=== PATIENT | female | born 1955 | race Caucasian/White ===

== ENCOUNTER → 2017-04-13 12:39 | Outpatient (REF) | payer MEDICARE, BC, SELFPAY ==
[2017-04-13 12:54] LABS: Basophils # 0.1 K/mm3 (0-0.2); Basophils % 0.3 % (0.1-2.0); Eosinophils % 0.2 % (0.1-12.0); Lymphocytes # 0.8 K/mm3 (0.7-4.5); Lymphocytes % 6.1 K/mm3 (10-50); Mean Corpuscular Hemoglobin 21.8 pg (27.0-31.2); Mean Corpuscular Volume 78.1 fl (81-99); Mean Platelet Volume 7.1 fl (7.4-10.4); Monocytes # 0.7 K/mm3 (0.1-1.0); Monocytes % 5.3 % (1.7-9.3); Neutrophils % 88.1 % (37.0-80.0); Platelet Count 349 K/mm3 (142-424); Red Blood Count 4.08 M/mm3 (4.20-5.40); Red Cell Distribution Width 15.5 % (11.5-17.5); White Blood Count 13.6 K/mm3 (4.8-10.8)
[2017-04-13 13:00] LABS: Anion Gap 5.2 mEq/L (5-15); Blood Urea Nitrogen 16 mg/dL (7-18); Carbon Dioxide 39 mmol/L (21.0-32.0); Chloride 98 mmol/L (98-107); Creatinine,Serum 0.74 mg/dL (0.55-1.02); Estimated Glomerular Filt Rate 80 ml/min (>60); GFR (African American) 96 ML/MIN (>60); Glucose 145 mg/dL (74-106); Potassium 4.2 mmoL/L (3.5-5.1); Sodium 138 mmol/L (136-145)
[2017-04-13 13:04] LABS: Hematocrit 31.9 % (37.0-47.0); MANUAL DIFFERENTIAL MANUAL DIFFERENTIAL (MANUAL DIFF)
[2017-04-13 13:30] LABS: Lymphocytes % 8 % (10-50); Monocytes % 4 % (2-9); Neutrophils % 88 % (42-76); Platelet Estimate Normal; Total Cells Counted 100
[2017-04-13 13:31] LABS: Anisocytosis 2+; Hypochromasia 3+; Microcytosis 2+
== END ==
LOC: LAB 12:39
PROVIDERS: Visit Provider Internal Medicine
DX: D53.9 Nutritional anemia, unspecified (principal)
CPT/HCPCS: 80048; 85007; 85025

== ENCOUNTER 2017-04-13 19:53 | Inpatient (IN) | payer OTHER, MEDICARE, SELFPAY ==
[2017-04-13 19:56] VITALS: BP 138/88; PULSE 121; RESP 26; TEMP 36.8; O2SAT 77; BMI 27.3
--- NOTE | 2017-04-13 20:21 | XR_ITS ---
XR chest portable HISTORY: ITS.REASON: respiratory distress ORDERING PHYSICIAN: Jamal Harden MD PATIENT AGE: 62 years COMPARISON: 05/20/2015 FINDINGS: The cardiomediastinal silhouette and pulmonary vascularity are within normal limits. There is COPD with coarsening of bronchovascular markings which is somewhat more prominent when compared to the previous exam and may be related to superimposed bronchitis/bronchiolitis. Consider upright PA and lateral chest for further evaluation. The degree of inspiration is less on today's exam compared to the previous study. There is no right seventh rib fracture. Also suspected old left humeral neck fracture. IMPRESSION: COPD with coarsening of bronchovascular markings more so than when compared to the previous exam suggesting bronchitis/bronchiolitis
[2017-04-13 20:57] LABS: Basophils % 0.3 % (0.1-2.0); Eosinophils # 0.1 K/mm3 (0.0-0.4); Eosinophils % 0.4 % (0.1-12.0); Hematocrit 31.6 % (37.0-47.0); Hemoglobin 8.8 g/dL (12.2-16.2); Lymphocytes # 0.8 K/mm3 (0.7-4.5); Lymphocytes % 6.2 K/mm3 (10-50); Mean Corpuscular HGB Conc 27.7 g/dL (31.8-35.4); Mean Corpuscular Hemoglobin 21.8 pg (27.0-31.2); Mean Corpuscular Volume 78.4 fl (81-99); Mean Platelet Volume 7.5 fl (7.4-10.4); Monocytes # 0.6 K/mm3 (0.1-1.0); Monocytes % 5.1 % (1.7-9.3); Neutrophils # 11.1 K/mm3 (1.8-7.8); Platelet Count 341 K/mm3 (142-424); Red Blood Count 4.02 M/mm3 (4.20-5.40); Red Cell Distribution Width 15.7 % (11.5-17.5); White Blood Count 12.6 K/mm3 (4.8-10.8)
--- NOTE | 2017-04-13 20:59 | HMH.EDSOB ---
ED Disposition Clinical Impression: Acute exacerbation of chronic obstructive airways disease Anemia Qualifiers: Anemia type: unspecified type Qualified Code(s): D64.9 - Anemia, unspecified Disposition: Admitted As Inpatient Condition on Discharge: Good - Critical Care Critical Care Time: No Attestation: On 04/13/17, the high probability of a clinically significant, sudden or life threatening deterioration of the following system(s) required my full and direct attention, intervention and personal management. The time I documented below is in addition to time spent performing reported procedures but includes the following listed in this critical care notation. Medical Decision Making - Medical Records Medical records reviewed: Yes: I reviewed the patient's medical records. Vital Signs: 04/13/17 19:56 04/13/17 21:23 Temperature 98.3 F 100.4 F H Temperature Source Oral Rectal Pulse Rate [Right Radial] 121 H 126 H Respiratory Rate 26 H 24 Blood Pressure [Right Arm] 138/88 143/93 Blood Pressure Mean [Right Arm] 104 109 Blood Pressure Source [Right Arm] Automatic Cuff Automatic Cuff Blood Pressure Position [Right Arm] Sitting Sitting 02 Sat by Pulse Oximetry 77 L 90 L Oxygen Delivery Method Room Air Nasal Cannula Oxygen Flow Rate (LPM) 4 - Lab Data Lab results reviewed: Yes: I reviewed the patient's lab results. Lab Results 04/13/17 20:40: WBC 12.6 H, RBC 4.02 L, Hgb 8.8 L, Hct 31.6 L, MCV 78.4 L, MCH 21.8 L, MCHC 27.7 L, RDW 15.7, Plt Count 341, MPV 7.5, Neut % (Auto) 88.0 H, Lymph % (Auto) 6.2 L, [place] % (Auto) 5.1, Eos % (Auto) 0.4, Baso % (Auto) 0.3, Neut # (Auto) 11.1 H, Lymph # (Auto) 0.8, [place] # (Auto) 0.6, Eos # (Auto) 0.1, Baso # (Auto) 0.0 04/13/17 20:40: Lactic Acid 0.8 04/13/17 20:40: B-Natriuretic Peptide 945 H 04/13/17 20:40: Sodium 139, Potassium 4.3, Chloride 99, Carbon Dioxide 39 H, Anion Gap 5.3, BUN 17, Creatinine 0.61, Estimated Creat Clear 58, Estimated GFR 99, Est GFR ( Amer) 120 D, Glucose 128 H, Calcium 8.7, Total Bilirubin 0.3, AST 50 H, ALT 22, Alkaline Phosphatase 150 H, Total Protein 7.3, Albumin 3.0 L, Globulin 4.3 H, Albumin/Globulin Ratio 0.7 L 04/13/17 20:40: Troponin I < 0.02 04/13/17 21:03: Urine Color Yellow, Urine Appearance Clear, Urine pH 6.0, Ur Specific [place] 1.025, Urine Protein 1+, Urine Glucose (UA) Negative, Urine Ketones Negative, Urine Blood 1+, Urine Nitrate Negative, Urine Bilirubin Negative, Urine Urobilinogen 0.2, Ur Leukocyte Esterase Trace A, Urine RBC 5-10, Urine WBC 5-10, Ur Squamous Epith Cells 3-5, Ur Transition Epith Cell Occ, Urine Bacteria 2+, Hyaline Casts 10-20 Result diagrams: 04/13/17 20:40 04/13/17 20:40 Orders (Tests/Meds): ORDERS Category Date Time Status Blood Culture Stat Micro 04/13/17 21:09 Ordered Urine Culture Stat Micro 04/13/17 21:03 Received ABG [Arterial Blood Gas] Stat RT 04/13/17 21:11 Ordered EKG Request [ECG Request by /She] Stat Y 04/13/17 21:02 Ordered - Radiology Data #1 Image(s): Chest Image Reviewed: Yes I reviewed the patient's radiology image Preliminary Findings: Abnormal (possible inflitrate ) - ECG Data Tracing #1 I reviewed this ECG and interpreted as documented below: Arrhythmias present: sinus tach Ischemic changes: non-specific ST-T wave changes - Physician Consults Physician Consulted: ishmael Reason -: Admission - Zoran Inquiry Pt receiving controlled substance: No Resp/SOB HPI - General Chief Complaint: Shortness of Breath/Dyspnea Stated Complaint: hypoxia Time Seen by Provider: 04/13/17 20:59 Mode of Arrival: EMS Source of Information: Patient, EMS, Medical Record Limitations: No Limitations Description of Symptoms (Recalled from ER Triage Doc. by RN): possible infection, pt states she wants to be a full code - History of Present Illness pt with change in mental status with more sob with low sat with no fever or prod cough Complaint: shortness of
--- NOTE | 2017-04-13 21:02 | ED_ITS ---
ED Disposition Clinical Impression: Acute exacerbation of chronic obstructive airways disease Anemia Qualifiers: Anemia type: unspecified type Qualified Code(s): D64.9 - Anemia, unspecified Disposition: Admitted As Inpatient Condition on Discharge: Good - Critical Care Critical Care Time: No Attestation: On 04/13/17, the high probability of a clinically significant, sudden or life threatening deterioration of the following system(s) required my full and direct attention, intervention and personal management. The time I documented below is in addition to time spent performing reported procedures but includes the following listed in this critical care notation. Medical Decision Making - Medical Records Medical records reviewed: Yes: I reviewed the patient's medical records. Vital Signs: 04/13/17 19:56 04/13/17 21:23 Temperature 98.3 F 100.4 F H Temperature Source Oral Rectal Pulse Rate [Right Radial] 121 H 126 H Respiratory Rate 26 H 24 Blood Pressure [Right Arm] 138/88 143/93 Blood Pressure Mean [Right Arm] 104 109 Blood Pressure Source [Right Arm] Automatic Cuff Automatic Cuff Blood Pressure Position [Right Arm] Sitting Sitting 02 Sat by Pulse Oximetry 77 L 90 L Oxygen Delivery Method Room Air Nasal Cannula Oxygen Flow Rate (LPM) 4 - Lab Data Lab results reviewed: Yes: I reviewed the patient's lab results. Lab Results 04/13/17 20:40: WBC 12.6 H, RBC 4.02 L, Hgb 8.8 L, Hct 31.6 L, MCV 78.4 L, MCH 21.8 L, MCHC 27.7 L, RDW 15.7, Plt Count 341, MPV 7.5, Neut % (Auto) 88.0 H, Lymph % (Auto) 6.2 L, [place] % (Auto) 5.1, Eos % (Auto) 0.4, Baso % (Auto) 0.3, Neut # (Auto) 11.1 H, Lymph # (Auto) 0.8, [place] # (Auto) 0.6, Eos # (Auto) 0.1, Baso # (Auto) 0.0 04/13/17 20:40: Lactic Acid 0.8 04/13/17 20:40: B-Natriuretic Peptide 945 H 04/13/17 20:40: Sodium 139, Potassium 4.3, Chloride 99, Carbon Dioxide 39 H, Anion Gap 5.3, BUN 17, Creatinine 0.61, Estimated Creat Clear 58, Estimated GFR 99, Est GFR ( Amer) 120 D, Glucose 128 H, Calcium 8.7, Total Bilirubin 0.3, AST 50 H, ALT 22, Alkaline Phosphatase 150 H, Total Protein 7.3, Albumin 3.0 L, Globulin 4.3 H, Albumin/Globulin Ratio 0.7 L 04/13/17 20:40: Troponin I < 0.02 04/13/17 21:03: Urine Color Yellow, Urine Appearance Clear, Urine pH 6.0, Ur Specific [place] 1.025, Urine Protein 1+, Urine Glucose (UA) Negative, Urine Ketones Negative, Urine Blood 1+, Urine Nitrate Negative, Urine Bilirubin Negative, Urine Urobilinogen 0.2, Ur Leukocyte Esterase Trace A, Urine RBC 5-10 , Urine WBC 5-10, Ur Squamous Epith Cells 3-5, Ur Transition Epith Cell Occ, Urine Bacteria 2+, Hyaline Casts 10-20 Result diagrams: 04/13/17 20:40 04/13/17 20:40 Orders (Tests/Meds): ORDERS Category Date Time Status Blood Culture Stat Micro 04/13/17 21:09 Ordered Urine Culture Stat Micro 04/13/17 21:03 Received ABG [Arterial Blood Gas] Stat RT 04/13/17 21:11 Ordered EKG Request [ECG Request by /She] Stat Y 04/13/17 21:02 Ordered - Radiology Data #1 Image(s): Chest Image Reviewed: Yes I reviewed the patient's radiology image Preliminary Findings: Abnormal (possible inflitrate ) - ECG Data Tracing #1 I reviewed this ECG and interpreted as documented below: Arrhythmias present: sinus tach Ischemic changes: non-specific ST-T wave changes - Physician Consults Physician Consulted: ishmael Reason -: Admission - Zoran Inquiry
[2017-04-13 21:08] LABS: Alanine Aminotransferase 22 U/L (12-78); Albumin/Globulin Ratio 0.7 (1.1-1.8); Alkaline Phosphatase 150 U/L (46-116); Anion Gap 5.3 mEq/L (5-15); Aspartate Amino Transferase 50 U/L (15-37); Bilirubin,Total 0.3 mg/dL (0.2-1.0); Blood Urea Nitrogen 17 mg/dL (7-18); Calcium 8.7 mg/dL (8.5-10.1); Carbon Dioxide 39 mmol/L (21.0-32.0); Chloride 99 mmol/L (98-107); Creatinine Clearance Estimated 58 mL/min (0-300); Creatinine,Serum 0.61 mg/dL (0.55-1.02); Estimated Glomerular Filt Rate 99 ml/min (>60); GFR (African American) 120 ML/MIN (>60); Globulin 4.3 gm/dl (1.3-3.2); Glucose 128 mg/dL (74-106); Potassium 4.3 mmoL/L (3.5-5.1); Sodium 139 mmol/L (136-145); Total Protein,Serum 7.3 gm/dL (6.4-8.2)
[2017-04-13 21:11] LABS: Lactic Acid 0.8 mmol/L (0.4-2.0)
[2017-04-13 21:22] LABS: Microscopic, Urine URINE MICROSCOPIC (MICROSCOPIC)
[2017-04-13 21:23] VITALS: BP 143/93; PULSE 126; RESP 24; TEMP 38; O2SAT 90
[2017-04-13 21:37] LABS: Appearance,Urine Clear (Clear); Color,Urine Yellow (Yellow); Specific Gravity, Urine 1.025 (1.005-1.030)
[2017-04-13 21:38] LABS: Bilirubin,Urine Negative (Negative); Blood, Urine 1+ (Negative); Glucose,Urine (UA) Negative (Negative); Ketones,Urine Negative (Negative); Leukocyte Esterase,Urine Trace (Negative); Nitrate,Urine Negative (Negative); Protein,Urine 1+ (Negative); Urobilinogen,Urine 0.2 EU/dl (0.2)
[2017-04-13 21:42] LABS: Bacteria,Urine 2+ /lpf; Transitional Epi Cells,Urine OCC #/lpf (0-3)
[2017-04-13 22:03] LABS: Troponin I < 0.02 ng/ml (0.00-0.06)
--- NOTE | 2017-04-13 23:04 | PC.NURSE ---
DR MURPHY DISCUSSING CASE WITH DR RILEY
--- NOTE | 2017-04-13 23:10 | PC.NURSE ---
DR MURPHY SPOKE WITH DR RILEY FOR ADMISSION.
[2017-04-13 23:22] VITALS: BP 151/68; PULSE 107; RESP 20; O2SAT 98
[2017-04-13 23:28] VITALS: BP 151/68; PULSE 111; RESP 20; TEMP 37.3
[2017-04-13 23:59] VITALS: O2SAT 90; BMI 23.8
[2017-04-14] VITALS (11 sets, daily range): BP systolic 123–156; BP diastolic 69–94; PULSE 87–125; RESP 22–24; TEMP 36.4–36.8; O2SAT 88–96; BMI 20.3; BMI 22.9
--- NOTE | 2017-04-14 03:44 | PC.NURSE ---
SINCE ADMISSION PT HAS C/O SOA. NOTIFIED OF PT SOA AND ORDER FOR DUO NEBS Q6H WAS OBTAIN, AFTER FIRST TREATMENT PT STATED, THAT MADE ME FEEL BETTER. FAINT WHEEZE NOTED TO RML DURING LUNG AUSCULTATION. O2 SATS REMAIN IN LOW 90S ON 4L NC. BS ACTIVE IN ALL 4 QAUDS. VSS. A&OX3. NO DISTRESS NOTED. WILL CONTINUE TO MONITOR.
--- NOTE | 2017-04-14 06:53 | PC.NURSE ---
NOTIFIED OF PT REQUESTING BREATHING TREATMENTS R/T INCREASE SOB (SEE NOTIFY PROVIDER)
[2017-04-14 07:08] LABS: Basophils % 0.3 % (0.1-2.0); Eosinophils % 0.2 % (0.1-12.0); Hematocrit 33.3 % (37.0-47.0); Hemoglobin 9.2 g/dL (12.2-16.2); Lymphocytes # 0.5 K/mm3 (0.7-4.5); Lymphocytes % 4.3 K/mm3 (10-50); Mean Corpuscular HGB Conc 27.7 g/dL (31.8-35.4); Mean Corpuscular Hemoglobin 21.9 pg (27.0-31.2); Mean Platelet Volume 7.5 fl (7.4-10.4); Monocytes # 0.1 K/mm3 (0.1-1.0); Monocytes % 0.8 % (1.7-9.3); Neutrophils # 10.9 K/mm3 (1.8-7.8); Neutrophils % 94.4 % (37.0-80.0); Platelet Count 339 K/mm3 (142-424); Red Blood Count 4.21 M/mm3 (4.20-5.40); Red Cell Distribution Width 15.6 % (11.5-17.5); White Blood Count 11.5 K/mm3 (4.8-10.8)
[2017-04-14 07:14] LABS: MANUAL DIFFERENTIAL MANUAL DIFFERENTIAL (MANUAL DIFF)
[2017-04-14 07:17] LABS: Anion Gap 5.8 mEq/L (5-15); Blood Urea Nitrogen 12 mg/dL (7-18); Chloride 99 mmol/L (98-107); Creatinine Clearance Estimated 53 mL/min (0-300); Creatinine,Serum 0.49 mg/dL (0.55-1.02); Estimated Glomerular Filt Rate 128 ml/min (>60); GFR (African American) 155 ML/MIN (>60); Glucose 150 mg/dL (74-106); Potassium 4.8 mmoL/L (3.5-5.1); Sodium 140 mmol/L (136-145)
[2017-04-14 07:18] LABS: Carbon Dioxide 40 mmol/L (21.0-32.0)
--- NOTE | 2017-04-14 07:25 | PC.NURSE ---
REPORT GIVEN TO Quiana MC
--- NOTE | 2017-04-14 07:29 | PC.NURSE ---
REPORT GIVEN TO Abhinav SAUNDERS
--- NOTE | 2017-04-14 07:44 | HMH.PHAVTE ---
[facility] Pharmacy VTE Monitoring - Patient Demographics Admission date: 04/13/17 Report Date: 04/14/17 Time: 07:44 Allergies/Adverse Reactions: cephalexin [From KEFLEX] Allergy (Mild, Verified 04/13/17 23:15) Height: 1.68 m Weight: 57.238 kg Patient Problems: Current Active Problems Acute exacerbation of chronic obstructive airways disease (Acute) Anemia (Acute) - VTE Risk Labs: VTE Related Lab Results Hgb 9.2 g/dL (12.2-16.2) L 04/14/17 06:07 Hct 33.3 % (37.0-47.0) L 04/14/17 06:07 Plt Count 339 K/mm3 (142-424) 04/14/17 06:07 BUN 12 mg/dL (7-18) D 04/14/17 06:07 Creatinine 0.49 mg/dL (0.55-1.02) L 04/14/17 06:07 Estimated Creat Clear 53 mL/min (0-300) 04/14/17 06:07 Was VTE Risk Assessment Performed: Yes VTE Score: 7 VTE Risk Level: Moderate Risk Clinical Trial Participant: No - Prophylaxis VTE Prophylaxis Ordered?: Yes Types of VTE Prophylaxis: TEDS Knee High
[2017-04-14 08:19] LABS: Lymphocytes % 3 % (10-50); Monocytes % 2 % (2-9); Neutrophils % 91 % (42-76); Total Cells Counted 100
--- NOTE | 2017-04-14 08:19 | HMH.HP ---
*Admission Date: 04/13/17 <Chelo Wesley 04/14/17 08:38> *Chief complaint: Shortness of breath <Chelo Wesley 04/14/17 08:38> *History of present illness: History as above. She continues to smoke but states only 1-2 cigarettes per day. She is nonambulatory at the [place] due to chronic hip pain from old fracture that was never repaired. SHe states she is going to see an orthopod in near future for possible CARSON. <RamonaVargas Morse - 04/14/17 11:21> Ms Frank is a 62 year old female resident of [facility] and cared for by Dr. Palomino who presented to [facility] ER via EMS due to progressive SOB. She describes coughing , sore throat, along with body aches and fever. She was not eating or drinking. She continues to smoke and has to go outside to do so. She has a lengthy medical history to include O2 dependent COPD, Tobacco abuse,Chronic hypercapnia, Dyspnea, anxiety and depression, Atrial fib, HTN, HLP, fibromyalgia nutritional anemia. sciatica, OA, chronic pain management and GERD. With evaluation in the ER she was felt to have pneumonia and was admitted for further evaluation and treatment. <MaryjaneChelo 04/14/17 08:38> [facility] History Medical History: Reports:: Atrial Fibrillation, Congestive Heart Failure, Chronic Obstructive Pulmonary Disease (COPD), Gastroesophageal Reflux Disease, Hyperlipidemia, Hypertension Denies:: Cancer, Diabetes Mellitus Type 1, Diabetes Mellitus Type 2, MRSA <MaryjaneChelo 04/14/17 08:38> Other Medical History: Reports: Anemia, Arthritis, Cataracts, Fibromyalgia <Chelo Wesley 04/14/17 08:38> Other Surgeries: Yes: No Previous Surgery. No: Pacemaker <Chelo Wesley 04/14/17 08:38> Amputation: No <Chelo Wesley 04/14/17 08:38> Fractures: No <Chelo Wesley 04/14/17 08:38> - *Social History Educational Level: Attended Grade School <Chelo Wesley 04/14/17 08:38> Smoking Status: Current every day smoker <Chelo Wesley 04/14/17 08:38> Tobacco Type: cigarettes <Chelo Wesley 04/14/17 08:38> # Packs/Day (cigarettes): 1 <Chelo Wesley 04/14/17 08:38> Alcohol Intake: never <Chelo Wesley 04/14/17 08:38> Substance Use Type: marijuana <Chelo Wesley 04/14/17 08:38> Occupational Status: disabled <Chelo Wesley 04/14/17 08:38> - Psychiatric History Expresses thoughts of harming self/others: None <MaryjaneChelo 04/14/17 08:38> Suicide Plan Description: No Plan <Chelo Wesley 04/14/17 08:38> Pschychiatric History:: Reports:: Anxiety, Depression <Chelo Wesley 04/14/17 08:38> *Family Hx:: Cancer, Coronary Artery Disease, Diabetes, Hypertension, Stroke, Tuberculosis <Chelo Wesley 04/14/17 08:38> Review of Systems - Constitutional Reports body ache(s), Reports fever(s), Reports headache(s), Reports weakness <MaryjaneChelo 04/14/17 08:38> - Eyes Reports requires corrective lenses <MaryjaneChelo 04/14/17 08:38> - ENT Reports nasal congestion, Reports sore throat <MaryjaneChelo 04/14/17 08:38> - *Cardiovascular Reports irregular heart rhythm, Reports fast heart rate, Denies chest pain <WesleyChelo 04/14/17 08:38> - *Respiratory Reports chest congestion, Reports cough, Reports shortness of breath, Reports coughing up blood, Reports wheezing <MaryjaneChelo 04/14/17 08:38> Comments: bilateral wheezing <MaryjaneChelo 04/14/17 08:38> - *Gastrointestinal Reports nausea, Reports vomiting, Denies abdominal pain <WesleyChelo 04/14/17 08:38> - *Musculoskeletal Comments: does not walk; righ hip fracture 2 years ago; ambulates in a wheelchair <WesleyChelo 04/14/17 08:38> - *Neurologic Reports headache(s), Denies confusion, Denies dizziness, Denies seizure-like activity <MaryjaneChelo 04/14/17 08:38> - Psychiatric Reports anxiety <Chelo Wesley - 04/14/17 08:38> Meds Home Medications Medication Instructions Recorded Confirmed Type ALPRAZolam [Xanax 0.5mg tab] 0.5 mg PO TID 04/13/17 04/13/17
[2017-04-14 08:21] LABS: Hypochromasia 2+; Microcytosis 1+
[2017-04-14 08:22] LABS: Platelet Estimate Normal
--- NOTE | 2017-04-14 08:29 | P.HP_ITS ---
*Admission Date: 04/13/17 <Chelo Wesley 04/14/17 08:38> *Chief complaint: Shortness of breath <Chelo Wesley 04/14/17 08:38> *History of present illness: History as above. She continues to smoke but states only 1-2 cigarettes per day. She is nonambulatory at the [place] due to chronic hip pain from old fracture that was never repaired. SHe states she is going to see an orthopod in near future for possible CARSON. <RamonaVargas Morse - 04/14/17 11:21> Ms Frank is a 62 year old female resident of [facility] and cared for by Dr. Palomino who presented to [facility] ER via EMS due to progressive SOB. She describes coughing , sore throat, along with body aches and fever. She was not eating or drinking. She continues to smoke and has to go outside to do so. She has a lengthy medical history to include O2 dependent COPD, Tobacco abuse, Chronic hypercapnia, Dyspnea, anxiety and depression, Atrial fib, HTN, HLP, fibromyalgia nutritional anemia. sciatica, OA, chronic pain management and GERD. With evaluation in the ER she was felt to have pneumonia and was admitted for further evaluation and treatment. <MaryjaneChelo 04/14/17 08:38> [facility] History Medical History: Reports:: Atrial Fibrillation, Congestive Heart Failure, Chronic Obstructive Pulmonary Disease (COPD), Gastroesophageal Reflux Disease, Hyperlipidemia, Hypertension Denies:: Cancer, Diabetes Mellitus Type 1, Diabetes Mellitus Type 2, MRSA < MaryjaneChelo 04/14/17 08:38> Other Medical History: Reports: Anemia, Arthritis, Cataracts, Fibromyalgia < Chelo Wesley 04/14/17 08:38> Other Surgeries: Yes: No Previous Surgery. No: Pacemaker <Chelo Wesley 08:38> Amputation: No <Chelo Wesley 04/14/17 08:38> Fractures: No <Chelo Wesley 04/14/17 08:38> - *Social History Educational Level: Attended Grade School <Chelo Wesley 04/14/17 08:38> Smoking Status: Current every day smoker <Chelo Wesley 04/14/17 08:38> Tobacco Type: cigarettes <Chelo Wesley 04/14/17 08:38> # Packs/Day (cigarettes): 1 <Chelo Wesley 04/14/17 08:38> Alcohol Intake: never <Chelo Wesley 04/14/17 08:38> Substance Use Type: marijuana <Chelo Wesley 04/14/17 08:38> Occupational Status: disabled <Chelo Wesley 04/14/17 08:38> - Psychiatric History Expresses thoughts of harming self/others: None <Chelo Wesley 04/14/17 08: 38> Suicide Plan Description: No Plan <Chelo Wesley 04/14/17 08:38> Pschychiatric History:: Reports:: Anxiety, Depression <Chelo Wesley 08:38> *Family Hx:: Cancer, Coronary Artery Disease, Diabetes, Hypertension, Stroke, Tuberculosis <Chelo Wesley 04/14/17 08:38> Review of Systems - Constitutional Reports body ache(s), Reports fever(s), Reports headache(s), Reports weakness <Chelo Wesley 04/14/17 08:38> - Eyes Reports requires corrective lenses <Chelo Wesley 04/14/17 08:38> - ENT Reports nasal congestion, Reports sore throat <Chelo Wesley 04/14/17 08:38> - *Cardiovascular Reports irregular heart rhythm, Reports fast heart rate, Denies chest pain < Chelo Wesley 04/14/17 08:38> - *Respiratory Reports chest congestion, Reports cough, Reports shortness of breath, Reports coughing up blood, Reports wheezing <Chelo Wesley 04/14/17 08:38> Comments: bilateral wheezing <Chelo Wesley 04/14/17 08:38> - *Gastrointestinal Reports nausea, Reports vomiting, Denies abdominal pain <MaryjaneChelo 04/14 08:38> - *Musculoskeletal Comments: does not walk; righ hip fracture 2 years ago; ambulates in a wheelchair <WesleyChelo 04/14/17 08:38> - *Neurologic
--- NOTE | 2017-04-14 10:43 | SW/DCPLANNER ---
Doreen from [facility] has stated that this patient is under Hospice at [facility]. I will follow up with Doreen when discharge date is known and assist with any new orders/needs.
--- NOTE | 2017-04-14 22:41 | PC.NURSE ---
PATIENT C/O SOA AT THIS TIME. SHE STATES THAT HER NOSE IS CONGESTED AND SHE DOESN'T FEEL LIKE SHE IS GETTING ADEQUATE OXYGEN VIA N/C. OXYGEN SATURATION OBTAINED AND READS 78% ON 3 LPM. OXYGEN INCREASED TO 4 LPM AND OXYGEN SAT INCREASES TO 81%. RESPIRATORY LANCE NOTIFIED AND IS AT BEDSIDE. NEB TREATMENT GIVEN PER RT AT THIS TIME. AFTER NEB TREATMENT, RT PUTS PATIENT ON VENTI MASK AT 35%. PATIENT'S OXYGEN SATURATION INCREASED TO 92-93% AT THIS TIME AND IS MAINTAINING. CONTINUOUS PULSE OX PUT ON PATIENT TO MONITOR OXYGEN SAT MORE CLOSELY. PATIENT STATES THAT SHE IS FEELING MUCH BETTER. NO OTHER PROBLEMS NOTED AT THIS TIME. VSS. WILL CONTINUE TO MONITOR.
[2017-04-15 04:00] VITALS: BP 144/76; PULSE 106; RESP 20; TEMP 36.2; O2SAT 96
--- NOTE | 2017-04-15 04:30 | PC.NURSE ---
PATIENT SEEMS TO HAVE RESTED WELL THIS SHIFT. SHE HAD ONE EPISODE OF SOA (SEE PREVIOUS NURSE NOTE) WHERE PATIENT C/O NASAL CONGESTION AND STATES SHE DIDN'T FEEL LIKE SHE WAS GETTING ADEQUATE OXYGEN PER N/C. DURING THAT TIME RT PLACED 35% VENTI MASK ON PATIENT AND SINCE PATIENT'S OXYGEN SATURATION HAS MAINTAIN 91-95%. PATIENT HAS HAD COUGH THROUGHOUT SHIFT AND WAS GIVEN PRN COUGH MEDS X1 SO FAR. NO OTHER PROBLEMS HAVE BEEN NOTED AT THIS TIME. PATIENT CURRENTLY ASLEEP IN BED. WILL CONTINUE TO MONITOR. SAFETY MEASURES IN PLACE, CALL LIGHT IN REACH.
[2017-04-15 06:43] VITALS: PULSE 120; O2SAT 96
[2017-04-15 08:00] VITALS: BP 151/97; PULSE 115; RESP 20; TEMP 36.6; O2SAT 91
--- NOTE | 2017-04-15 08:06 | XR_ITS ---
XR chest 2V HISTORY: ITS.REASON: COPD, hypoxemia, suspect pneumonia ORDERING PHYSICIAN: Vargas Greene MD PATIENT AGE: 62 years COMPARISON: 04/13/2017 FINDINGS: The cardiomediastinal silhouette and pulmonary vascularity are within normal limits. COPD once again noted. Mild prominence of the pulmonary arteries suggesting pulmonary arterial hypertension. The coarsening of the bronchovascular markings shown some improvement. There are small bilateral pleural effusions. There is moderate wedging involving T12 with mild wedging of T10 similar to an older exam of 03/02/2015. IMPRESSION: COPD/emphysema with improvement in the bronchitis/bronchiolitis with trace bilateral effusions.
--- NOTE | 2017-04-15 08:10 | HMH.ACPN2 ---
Internal Medicine - PN: Subj *Date: 04/15/17 *Time: 08:14 Interval history: She complained of dyspnea during the night and sats dropped to 78%. SHe was placed on O2 mask and sats returned to 92%. Reports she is breathing a little better today. Still with productive cough. Exam Vital signs and Labs for Last 24 Hours: Temp Pulse Resp BP Pulse Ox 97.1 F L 120 H 20 144/76 96 04/15/17 04:00 04/15/17 06:43 04/15/17 04:00 04/15/17 04:00 04/15/17 06:43 Laboratory Results - last 24 hr 04/14/17 06:07: Total Counted 100, Neutrophils % (Manual) 91 H, Band Neutrophils % 4.0, Lymphocytes % (Manual) 3 L, Monocytes % (Manual) 2, Platelet Estimate Normal, Hypochromasia 2+, Microcytosis 1+ 04/14/17 10:00: Influenza Type A Ag Negative, Influenza Type B Ag Negative I & O for Last 24 hours: Intake & Output 04/12/17 04/13/17 04/14/17 04/15/17 11:59 11:59 11:59 11:59 Intake Total 540 / 540 Balance 540 / 540 Weight 126 lb 3 oz 126 lb 2.729 oz - Constitutional Comments: resting comfortably with O2 mask. - *Routine Respiratory Exam Comments: generally diminished BS with few faint wheezes - *Routine Cardiovascular Exam Present: RRR. Absent: murmur Assessment and Plan (1) Acute exacerbation of chronic obstructive airways disease Current visit: Yes Status: Acute Category: Medical Code(s): J44.1 - Chronic obstructive pulmonary disease with (acute) exacerbation (2) Tobacco use disorder Current visit: Yes Status: Chronic Category: Medical Code(s): F17.200 - Nicotine dependence, unspecified, uncomplicated (3) Chronic atrial fibrillation Current visit: Yes Status: Chronic Category: Medical Code(s): I48.2 - Chronic atrial fibrillation (4) Chronic pain syndrome Current visit: Yes Status: Chronic Category: Medical Code(s): G89.4 - Chronic pain syndrome (5) Chronic hypercapnic respiratory failure Current visit: Yes Status: Chronic Category: Medical Code(s): J96.12 - Chronic respiratory failure with hypercapnia (6) Anemia Current visit: Yes Status: Acute Qualifiers: Anemia type: unspecified type Qualified Code(s): D64.9 - Anemia, unspecified Category: Medical Code(s): D64.9 - Anemia, unspecified (7) Anxiety Current visit: Yes Status: Acute Category: Medical Code(s): F41.9 - Anxiety disorder, unspecified (8) Depression Current visit: Yes Status: Chronic Category: Medical Code(s): F32.9 - Major depressive disorder, single episode, unspecified (9) Fibromyalgia Current visit: Yes Status: Chronic Category: Medical Code(s): M79.7 - Fibromyalgia (10) HTN (hypertension) Current visit: Yes Status: Chronic Category: Medical Code(s): I10 - Essential (primary) hypertension (11) Osteoarthritis Current visit: Yes Status: Chronic Category: Medical Code(s): M19.90 - Unspecified osteoarthritis, unspecified site - Assessment and plan all Dx Assessment and Plan for all problems:: Subjectively looks better but stiil with some hypoxemia. Will repeat CXR. Sputum culture not obtained yet. Flu test was negative. Encourage OOB today.
--- NOTE | 2017-04-15 10:41 | PC.NURSE ---
PT IS RESTING IN BED, RECEIVED PAIN MEDICATION THIS MORNING FOR DISCOMFORT, PT'S O2 SATURATION IS 98% ON 3L NC, LUNG SOUNDS DIMINISHED WITH FAINT EXPIRATORY WHEEZES. BOWEL SOUNDS NORMAL, PT NEEDS TO ASSIST TO GET OOB, PT STATES SHE HAS NOT HAD A BOWEL MOVEMENT SINCE LAST WEDNESDAY BUT SHE HAS NOT BEEN EATING WELL. WILL CONTINUE TO MONITOR.
--- NOTE | 2017-04-15 11:27 | SW/DCPLANNER ---
Updated patient information has been faxed to Doreen at [facility]. I have also informed Doreen that this patient could potentially be ready for discharge tomorrow. I will follow up with Doreen in the AM.
[2017-04-15 16:10] VITALS: BP 161/98; PULSE 106; RESP 18; TEMP 36.8; O2SAT 97
[2017-04-15 17:02] VITALS: PULSE 102; PULSE 108; O2SAT 97
[2017-04-15 20:00] VITALS: BP 155/99; PULSE 106; RESP 18; TEMP 36.7; O2SAT 100
[2017-04-16 00:35] VITALS: PULSE 100; PULSE 105; O2SAT 96
[2017-04-16 04:00] VITALS: BP 149/89; PULSE 106; RESP 18; TEMP 36.4; O2SAT 96
[2017-04-16 06:23] VITALS: PULSE 86
[2017-04-16 08:00] VITALS: O2SAT 96
--- NOTE | 2017-04-16 08:42 | HMH.DCSUM ---
General - General Admission date: 04/13/17 <Vargas Greene - 04/16/17 08:48> Discharge date: 04/16/17 <Yessenia Martin - 04/16/17 10:35> HPI HPI: Ms Frank is a 62 year old female resident of [facility] and cared for by Dr. Palomino who presented to [facility] ER via EMS due to progressive SOB. She describes coughing , sore throat, along with body aches and fever. She was not eating or drinking. She continues to smoke and has to go outside to do so. She has a lengthy medical history to include O2 dependent COPD, Tobacco abuse,Chronic hypercapnia, Dyspnea, anxiety and depression, Atrial fib, HTN, HLP, fibromyalgia nutritional anemia. sciatica, OA, chronic pain management and GERD. With evaluation in the ER she was felt to have pneumonia and was admitted for further evaluation and treatment. <Yessenia Martin - 04/16/17 10:35> History as above. She continues to smoke but states only 1-2 cigarettes per day. She is nonambulatory at the [place] due to chronic hip pain from old fracture that was never repaired. SHe states she is going to see an orthopod in near future for possible CARSON. <Vargas Greene - 04/16/17 08:48> Objective Vital signs: Temp Pulse Resp BP Pulse Ox 98.0 F 110 H 22 152/86 97 04/16/17 08:55 04/16/17 08:55 04/16/17 08:55 04/16/17 08:55 04/16/17 08:55 <Yessenia Martin - 04/16/17 10:29> Temp Pulse Resp BP Pulse Ox 97.6 F 86 18 149/89 96 04/16/17 04:00 04/16/17 06:23 04/16/17 04:00 04/16/17 04:00 04/16/17 04:00 <Vargas Greene - 04/16/17 08:48> Narrative: - Constitutional no acute distress Comments: lying comfortably in bed with no resp distress. Color is adequate. - *Routine HEENT Exam Head: Present: normocephalic, atraumatic Eye: Present: PERRL. Absent: scleral injection ENT: Present: mucous membranes moist, oropharynx clear Comments: dentures - *Routine Neck Exam Present: supple, full ROM. Absent: carotid bruit, lymphadenopathy, thyromegaly - *Routine Respiratory Exam Comments: noted with generally diminished BS and bilateral faint wheezes wheezing throughout - *Routine Cardiovascular Exam Comments: heart rate is regular today - *Routine Abdominal Exam Present: soft. Absent: tenderness, distended - *Routine Extremities Exam Absent: edema, calf tenderness <Yessenia Martin - 04/16/17 10:35> Hospital Course Hospital Course: Neither the initial CXR nor the repeat CXR confirmed pneumonia. She likely has an exacerbation of her COPD due to acute bronchitis and has improved with antibiotics and steroids. She will continue on a course of oral Levaquin and Medrol doespack on return to [place] <RamonaVargas Lito - 04/16/17 16:49> The patient was admitted and started on ABX, Duonebs, steriods, and some of her regular home meds. Her flu test was negative. She complained of dyspnea and her sats dropped to 78% during the 2nd night. She was placed on an O2 mask and sats returned to 92%. Her SOA did improve and a repeat CXR showed improvement. She was stable to be discharged to [place] on continued abx. <Yessenia Martin - 04/16/17 10:35> DS: Diagnosis - Discharge Diagnosis (1) Acute exacerbation of chronic obstructive airways disease Status: Acute (2) Anemia Status: Acute (3) Anxiety Status: Acute (4) Atrial fibrillation Status: Chronic (5) Chronic atrial fibrillation Status: Chronic (6) Chronic hypercapnic respiratory failure Status: Chronic (7) Chronic pain syndrome Status: Chronic (8) Depression Status: Chronic <Yessenia Martin - 04/16/17 10:29> (1) Acute exacerbation of chronic obstructive airways disease Status: Acute (2) Acute bronchitis Status: Acute (3) Tobacco use disorder Status: Chronic (4) Chronic atrial fibrillation Status: Chronic (5) Chronic pain syndrome Status: C
--- NOTE | 2017-04-16 08:47 | P.DS_ITS ---
General - General Admission date: 04/13/17 <Vargas Greene - 04/16/17 08:48> Discharge date: 04/16/17 <Yessenia Martin - 04/16/17 10:35> HPI HPI: Ms Frank is a 62 year old female resident of [facility] and cared for by Dr. Palomino who presented to [facility] ER via EMS due to progressive SOB. She describes coughing , sore throat, along with body aches and fever. She was not eating or drinking. She continues to smoke and has to go outside to do so. She has a lengthy medical history to include O2 dependent COPD, Tobacco abuse, Chronic hypercapnia, Dyspnea, anxiety and depression, Atrial fib, HTN, HLP, fibromyalgia nutritional anemia. sciatica, OA, chronic pain management and GERD. With evaluation in the ER she was felt to have pneumonia and was admitted for further evaluation and treatment. <Yessenia Martin - 04/16/17 10:35> History as above. She continues to smoke but states only 1-2 cigarettes per day. She is nonambulatory at the [place] due to chronic hip pain from old fracture that was never repaired. SHe states she is going to see an orthopod in near future for possible CARSON. <Vargas Greene - 04/16/17 08:48> Objective Vital signs: Temp Pulse Resp BP Pulse Ox 98.0 F 110 H 22 152/86 97 04/16/17 08:55 04/16/17 08:55 04/16/17 08:55 04/16/17 08:55 04/16/17 08:55 <Yessenia Martin - 04/16/17 10:29> Temp Pulse Resp BP Pulse Ox 97.6 F 86 18 149/89 96 04/16/17 04:00 04/16/17 06:23 04/16/17 04:00 04/16/17 04:00 04/16/17 04:00 <Vargas Greene - 04/16/17 08:48> Narrative: - Constitutional no acute distress Comments: lying comfortably in bed with no resp distress. Color is adequate. - *Routine HEENT Exam Head: Present: normocephalic, atraumatic Eye: Present: PERRL. Absent: scleral injection ENT: Present: mucous membranes moist, oropharynx clear Comments: dentures - *Routine Neck Exam Present: supple, full ROM. Absent: carotid bruit, lymphadenopathy, thyromegaly - *Routine Respiratory Exam Comments: noted with generally diminished BS and bilateral faint wheezes wheezing throughout - *Routine Cardiovascular Exam Comments: heart rate is regular today - *Routine Abdominal Exam Present: soft. Absent: tenderness, distended - *Routine Extremities Exam Absent: edema, calf tenderness <Yessenia Martin - 04/16/17 10:35> Hospital Course Hospital Course: Neither the initial CXR nor the repeat CXR confirmed pneumonia. She likely has an exacerbation of her COPD due to acute bronchitis and has improved with antibiotics and steroids. She will continue on a course of oral Levaquin and Medrol doespack on return to [place] <Vargas Greene - 04/16/17 16:49> The patient was admitted and started on ABX, Duonebs, steriods, and some of her regular home meds. Her flu test was negative. She complained of dyspnea and her sats dropped to 78% during the 2nd night. She was placed on an O2 mask and sats returned to 92%. Her SOA did improve and a repeat CXR showed improvement. She was stable to be discharged to [place] on continued abx. <Yessenia Martin - 04/16/17 10:35> DS: Diagnosis - Discharge Diagnosis (1) Acute exacerbation of chronic obstructive airways disease Status: Acute (2) Anemia Status: Acute (3) Anxiety Status: Acute (4) Atrial fibrillation Status
[2017-04-16 08:55] VITALS: BP 152/86; PULSE 110; RESP 22; TEMP 36.7; O2SAT 97
--- NOTE | 2017-04-16 09:52 | PC.NURSE ---
LAB AND NURSES UNABLE TO OBTAIN BLOOD ON PT THIS MORNING FOR AM LABS. DR RILEY CONTACTED AND ADVISED THAT PT HAS BEEN STUCK SEVERAL TIMES. ASKED MD IF HE WANTS STAFF TO CONTINUE TO ATTEMPT TO GET BLOODWORK BEFORE PT DISCHARGED. STATES BLOOD WORK IS NOT NEEDED- PT MAY LEAVE AT THIS TIME.
--- NOTE | 2017-04-16 10:21 | PC.NURSE ---
received pt at [id number]. oscar raya rn leaves floor.
== END 2017-04-16 10:59 | DRG 191 ==
LOC: ER 21:56 → 2ND 23:32
PROVIDERS: Nurse Practitioner Family; Admitting Provider Family Medicine; Emergency Provider Emergency Medicine; Family Provider Internal Medicine Adolescent Medicine; Visit Provider Family Medicine
DX: J44.0 Chronic obstructive pulmonary disease with (acute) lower respiratory infection; J96.12 Chronic respiratory failure with hypercapnia; Z99.81 Dependence on supplemental oxygen; I48.2 Chronic atrial fibrillation; J44.1 Chronic obstructive pulmonary disease with (acute) exacerbation; I10 Essential (primary) hypertension; J20.9 Acute bronchitis, unspecified; Z72.0 Tobacco use
CPT/HCPCS: 36415; 71045; 71046; 80048; 80053; 81001; 82803; 83605; 83880; 84484; 85007; 85025; 87040; 87086; 87275; 87276; 93005; 93041; 94640; 96365; 96375; 99285; J1956

== ENCOUNTER 2017-05-02 11:53 | Emergency (ER) | payer OTHER, SELFPAY ==
[2017-05-02 11:54] VITALS: BMI 22.3
[2017-05-02 11:56] VITALS: BP 115/77; PULSE 102; RESP 16; TEMP 36.9; O2SAT 96; BMI 23.8
--- NOTE | 2017-05-02 12:09 | XR_ITS ---
XR chest portable Ordering Physician: Jamal Harden MD Patient Age: 62 years: Female HISTORY: ITS.REASON: SPITTING UP BLOOD TECHNIQUE: AP portable upright chest COMPARISON : 2014 2015. FINDINGS chronic changes with no new pneumonia evident. Mild cardiomegaly. Focal density projected over the anterior right sixth rib is noted but I believe has been present since 2015December 2014April CXR. Similar but Less evident minimal density projected over the anterior right seventh rib. These most likely reflect costochondral calcifications are as seen, bilaterally involving bilateral sixth rib and possibly seventh rib hands. This observation also accentuated by today's higher contrast chest film. Otherwise note Old healed right eighth ninth and 10th lateral rib fractures noted as well as old healed left sixth rib fracture. Mild cardiomegaly. Heart and hilar regions appear satisfactory. IMPRESSION No discrete acute findings. Mild hyperexpansion mild chronic changes Minimal density projected over anterior rib ends of rib 6, 7 and 8 more evident on right than left.. Most likely reflecting costochondral calcification is seen previously and mildly accentuated on today's higher contrast digital study. Similar appearance states back to 2014 2015. However if hemoptysis persist and there is a history of smoking low threshold for CT significant chest would be encouraged to further evaluate and exclude any other underlying features . Underlying emphysematous changes noted
[2017-05-02 12:28] LABS: Basophils # 0.1 K/mm3 (0-0.2); Eosinophils # 0.3 K/mm3 (0.0-0.4); Eosinophils % 4.7 % (0.1-12.0); Hematocrit 29.4 % (37.0-47.0); Hemoglobin 8.5 g/dL (12.2-16.2); Lymphocytes # 1.1 K/mm3 (0.7-4.5); Lymphocytes % 21.1 K/mm3 (10-50); Mean Corpuscular HGB Conc 28.9 g/dL (31.8-35.4); Mean Corpuscular Hemoglobin 22.1 pg (27.0-31.2); Mean Corpuscular Volume 76.6 fl (81-99); Monocytes # 0.3 K/mm3 (0.1-1.0); Monocytes % 4.7 % (1.7-9.3); Neutrophils # 3.6 K/mm3 (1.8-7.8); Neutrophils % 68.4 % (37.0-80.0); Platelet Count 162 K/mm3 (142-424); Red Blood Count 3.84 M/mm3 (4.20-5.40); Red Cell Distribution Width 16.3 % (11.5-17.5); White Blood Count 5.3 K/mm3 (4.8-10.8)
[2017-05-02 12:39] LABS: Alanine Aminotransferase 14 U/L (12-78); Albumin Level 3.1 gm/dL (3.4-5.0); Albumin/Globulin Ratio 0.9 (1.1-1.8); Alkaline Phosphatase 142 U/L (46-116); Anion Gap 3.9 mEq/L (5-15); Aspartate Amino Transferase 19 U/L (15-37); Bilirubin,Total 0.3 mg/dL (0.2-1.0); Blood Urea Nitrogen 12 mg/dL (7-18); Calcium 8.3 mg/dL (8.5-10.1); Carbon Dioxide 39 mmol/L (21.0-32.0); Chloride 100 mmol/L (98-107); Creatinine Clearance Estimated 51 mL/min (0-300); Creatinine,Serum 0.45 mg/dL (0.55-1.02); Estimated Glomerular Filt Rate 141 ml/min (>60); GFR (African American) 171 ML/MIN (>60); Globulin 3.5 gm/dl (1.3-3.2); Glucose 96 mg/dL (74-106); Potassium 3.9 mmoL/L (3.5-5.1); Sodium 139 mmol/L (136-145); Total Protein,Serum 6.6 gm/dL (6.4-8.2)
[2017-05-02 14:17] VITALS: BP 98/54; PULSE 100; O2SAT 94
--- NOTE | 2017-05-02 15:31 | HMH.EDSOB ---
ED Disposition Clinical Impression: Hemoptysis, unspecified, Acute exacerbation of chronic obstructive airways disease, Lower extremity edema Anemia Qualifiers: Anemia type: unspecified type Qualified Code(s): D64.9 - Anemia, unspecified Disposition: Home, Self-Care Condition on Discharge: Good Instructions: DI for Hemoptysis Additional Instructions: recheck her cbc in a few days - Critical Care Critical Care Time: No Attestation: On 05/02/17, the high probability of a clinically significant, sudden or life threatening deterioration of the following system(s) required my full and direct attention, intervention and personal management. The time I documented below is in addition to time spent performing reported procedures but includes the following listed in this critical care notation. Medical Decision Making - Medical Records Medical records reviewed: Yes: I reviewed the patient's medical records. Vital Signs: 05/02/17 11:56 05/02/17 14:17 Temperature 98.5 F Temperature Source Oral Pulse Rate [Right Radial] 102 H 100 H Respiratory Rate 16 Blood Pressure [Right Arm] 115/77 98/54 Blood Pressure Mean [Right Arm] 89 68 Blood Pressure Source [Right Arm] Automatic Cuff Blood Pressure Position [Right Arm] Sitting 02 Sat by Pulse Oximetry 96 94 L Oxygen Delivery Method Nasal Cannula Oxygen Flow Rate (LPM) 3 - Lab Data Lab results reviewed: Yes: I reviewed the patient's lab results. Lab Results 05/02/17 12:20: WBC 5.3, RBC 3.84 L, Hgb 8.5 L, Hct 29.4 L, MCV 76.6 L, MCH 22.1 L, MCHC 28.9 L, RDW 16.3, Plt Count 162, MPV 9.0, Neut % (Auto) 68.4, Lymph % (Auto) 21.1, Cobb % (Auto) 4.7, Eos % (Auto) 4.7, Baso % (Auto) 1.0, Neut # (Auto) 3.6, Lymph # (Auto) 1.1, Cobb # (Auto) 0.3, Eos # (Auto) 0.3, Baso # (Auto) 0.1 05/02/17 12:20: Sodium 139, Potassium 3.9, Chloride 100, Carbon Dioxide 39 H, Anion Gap 3.9 L, BUN 12, Creatinine 0.45 L, Estimated Creat Clear 51, Estimated GFR 141, Est GFR ( Amer) 171, Glucose 96, Calcium 8.3 L, Total Bilirubin 0.3, AST 19, ALT 14, Alkaline Phosphatase 142 H, Total Protein 6.6, Albumin 3.1 L, Globulin 3.5 H, Albumin/Globulin Ratio 0.9 L Result diagrams: 05/02/17 12:20 05/02/17 12:20 Orders (Tests/Meds): ORDERS Category Date Time Status Chest XR -- portable [XR chest portable] Stat Exams 05/02/17 12:09 Taken - Radiology Data #1 Image(s): Chest Image Reviewed: Yes I reviewed the patient's radiology image Preliminary Findings: Abnormal (chronic changes ) - Zoran Inquiry Pt receiving controlled substance: No Resp/SOB HPI - General Chief Complaint: Nausea/Vomiting/Diarrhea Stated Complaint: SPITTING UP BLOOD Time Seen by Provider: 05/02/17 15:32 Mode of Arrival: EMS Source of Information: Patient, EMS, Medical Record Limitations: No Limitations Description of Symptoms (Recalled from ER Triage Doc. by RN): SPITTING UP BLOOD, STATES SHE DOES NOT COUGH PRIOR TO AND IT NOT VOMITING IT, SIMPLY COMES UP THROAT AND SHE SPITS IT. STATES BRIGHT RED CLOTS. ALSO C/O SWOLLEN FEET THAT THROB. HX OF CHF AND STATES FEET ARE ALWAYS SWOLLEN. NOSE BLEED LAST NIGHT. - History of Present Illness this wf reports she had nose bleed yesterday and coughed up clot today w/o chest pain - has hx of copd and a fib on xarelto- she has hx of chronic leg edema MD Complaint: cough Onset (ago): day(s) Context: other (nose bleed ) Severity: moderate Consistency/Duration: now resolved Known history of: COPD Treatment prior to arrival: oxygen - Related Data Home oxygen amount: 2 liters Home Medications Medication Instructions Recorded Confirmed ALPRAZolam [Xanax 0.5mg tab] 0.5 mg PO TID 04/13/17 04/13/17 Amlodipine Besylate [Norvasc 2.5mg 2.5 mg PO DAILY 04/13/17 04/13/17 Tab] Aspirin [Aspir 81] 81 mg PO DAILY 04/13/17 04/14/17 Budesonide/Formoterol Fumarate 2 inh INHALATION BID 04/13/17 04/13/17 [Symbicort 160-4.5 Mcg Inhaler] E[place]
--- NOTE | 2017-05-02 15:35 | ED_ITS ---
ED Disposition Clinical Impression: Hemoptysis, unspecified, Acute exacerbation of chronic obstructive airways disease, Lower extremity edema Anemia Qualifiers: Anemia type: unspecified type Qualified Code(s): D64.9 - Anemia, unspecified Disposition: Home, Self-Care Condition on Discharge: Good Instructions: DI for Hemoptysis Additional Instructions: recheck her cbc in a few days - Critical Care Critical Care Time: No Attestation: On 05/02/17, the high probability of a clinically significant, sudden or life threatening deterioration of the following system(s) required my full and direct attention, intervention and personal management. The time I documented below is in addition to time spent performing reported procedures but includes the following listed in this critical care notation. Medical Decision Making - Medical Records Medical records reviewed: Yes: I reviewed the patient's medical records. Vital Signs: 05/02/17 11:56 05/02/17 14:17 Temperature 98.5 F Temperature Source Oral Pulse Rate [Right Radial] 102 H 100 H Respiratory Rate 16 Blood Pressure [Right Arm] 115/77 98/54 Blood Pressure Mean [Right Arm] 89 68 Blood Pressure Source [Right Arm] Automatic Cuff Blood Pressure Position [Right Arm] Sitting 02 Sat by Pulse Oximetry 96 94 L Oxygen Delivery Method Nasal Cannula Oxygen Flow Rate (LPM) 3 - Lab Data Lab results reviewed: Yes: I reviewed the patient's lab results. Lab Results 05/02/17 12:20: WBC 5.3, RBC 3.84 L, Hgb 8.5 L, Hct 29.4 L, MCV 76.6 L, MCH 22.1 L, MCHC 28.9 L, RDW 16.3, Plt Count 162, MPV 9.0, Neut % (Auto) 68.4, Lymph % (Auto) 21.1, [place] % (Auto) 4.7, Eos % (Auto) 4.7, Baso % (Auto) 1.0, Neut # (Auto) 3.6, Lymph # (Auto) 1.1, [place] # (Auto) 0.3, Eos # (Auto) 0.3, Baso # (Auto) 0.1 05/02/17 12:20: Sodium 139, Potassium 3.9, Chloride 100, Carbon Dioxide 39 H, Anion Gap 3.9 L, BUN 12, Creatinine 0.45 L, Estimated Creat Clear 51, Estimated GFR 141, Est GFR ( Amer) 171, Glucose 96, Calcium 8.3 L, Total Bilirubin 0.3, AST 19, ALT 14, Alkaline Phosphatase 142 H, Total Protein 6.6, Albumin 3.1 L, Globulin 3.5 H, Albumin/Globulin Ratio 0.9 L Result diagrams: 05/02/17 12:20 05/02/17 12:20 Orders (Tests/Meds): ORDERS Category Date Time Status Chest XR -- portable [XR chest portable] Stat Exams 05/02/17 12:09 Taken - Radiology Data #1 Image(s): Chest Image Reviewed: Yes I reviewed the patient's radiology image Preliminary Findings: Abnormal (chronic changes ) - Zoran Inquiry Pt receiving controlled substance: No Resp/SOB HPI - General Chief Complaint: Nausea/Vomiting/Diarrhea Stated Complaint: SPITTING UP BLOOD Time Seen by Provider: 05/02/17 15:32 Mode of Arrival: EMS Source of Information: Patient, EMS, Medical Record Limitations: No Limitations Description of Symptoms (Recalled from ER Triage Doc. by RN): SPITTING UP BLOOD , STATES SHE DOES NOT COUGH PRIOR TO AND IT NOT VOMITING IT, SIMPLY COMES UP THROAT AND SHE SPITS IT. STATES BRIGHT RED CLOTS. ALSO C/O SWOLLEN FEET THAT THROB. HX OF CHF AND STATES FEET ARE ALWAYS SWOLLEN. NOSE BLEED LAST NIGHT. - History of Present Illness this wf reports she had nose bleed yesterday and coughed up clot today w/o chest pain - has hx of copd and a fib on xarelto- she has hx of chronic leg edema MD Complaint: cough Onset (ago): day(s) Context:
[2017-05-02 15:59] VITALS: BP 110/70; PULSE 70; RESP 16; TEMP 36.9; O2SAT 98
== END 2017-05-02 16:02 | disposition home or self-care (01) ==
PROVIDERS: Emergency Provider Emergency Medicine; Family Provider Internal Medicine Adolescent Medicine
DX: J44.1 Chronic obstructive pulmonary disease with (acute) exacerbation (principal); R60.0 Localized edema; I48.91 Unspecified atrial fibrillation; Z79.82 Long term (current) use of aspirin; Z88.1 Allergy status to other antibiotic agents; Z88.7 Allergy status to serum and vaccine; F17.210 Nicotine dependence, cigarettes, uncomplicated; F41.8 Other specified anxiety disorders
CPT/HCPCS: 71045; 80053; 85025; 99282

== ENCOUNTER → 2017-06-29 13:31 | Outpatient (REF) | payer OTHER, MEDICARE, MEDICAID, SELFPAY ==
[2017-06-29 13:49] LABS: Basophils # 0.1 K/mm3 (0-0.2); Basophils % 0.5 % (0.1-2.0); Eosinophils # 0.3 K/mm3 (0.0-0.4); Eosinophils % 2.9 % (0.1-12.0); Lymphocytes # 0.7 K/mm3 (0.7-4.5); Lymphocytes % 5.8 K/mm3 (10-50); Mean Corpuscular HGB Conc 26.6 g/dL (31.8-35.4); Mean Corpuscular Hemoglobin 20.2 pg (27.0-31.2); Mean Corpuscular Volume 75.8 fl (81-99); Mean Platelet Volume 7.7 fl (7.4-10.4); Monocytes # 0.4 K/mm3 (0.1-1.0); Monocytes % 3.7 % (1.7-9.3); Neutrophils # 10.4 K/mm3 (1.8-7.8); Platelet Count 522 K/mm3 (142-424); Red Cell Distribution Width 16.7 % (11.5-17.5); White Blood Count 11.9 K/mm3 (4.8-10.8)
[2017-06-29 14:03] LABS: Hematocrit 35.6 % (37.0-47.0); Hemoglobin 9.5 g/dL (12.2-16.2); Red Blood Count 4.69 M/mm3 (4.20-5.40)
[2017-06-29 14:04] LABS: MANUAL DIFFERENTIAL MANUAL DIFFERENTIAL (MANUAL DIFF)
[2017-06-29 14:42] LABS: Lymphocytes % 8 % (10-50); Monocytes % 4 % (2-9); Neutrophils % 88 % (42-76); Total Cells Counted 100
[2017-06-29 14:43] LABS: Platelet Estimate Moderate Increase
[2017-06-29 14:45] LABS: Hypochromasia 2+; Microcytosis 1+
== END ==
LOC: LAB 13:31
PROVIDERS: Visit Provider Internal Medicine
DX: J44.1 Chronic obstructive pulmonary disease with (acute) exacerbation (principal)
CPT/HCPCS: 85007; 85025

== ENCOUNTER → 2017-06-30 15:13 | Outpatient (REF) | payer OTHER, SELFPAY ==
[2017-06-30 15:18] LABS: Microscopic, Urine URINE MICROSCOPIC (MICROSCOPIC)
[2017-06-30 16:06] LABS: Appearance,Urine CLEAR (Clear); Bilirubin,Urine Negative (Negative); Blood, Urine TRACE-L (Negative); Color,Urine YELLOW (Yellow); Glucose,Urine (UA) Negative (Negative); Ketones,Urine Negative (Negative); Leukocyte Esterase,Urine Negative (Negative); Nitrate,Urine Negative (Negative); Protein,Urine Negative (Negative); Urobilinogen,Urine 0.2 EU/dl (0.2)
[2017-06-30 16:15] LABS: Bacteria,Urine Trace /lpf; WBC,Urine Occasional #/hpf (0-3)
== END ==
LOC: LAB 15:13
PROVIDERS: Visit Provider Internal Medicine
DX: D64.9 Anemia, unspecified (principal)
CPT/HCPCS: 81001

== ENCOUNTER → 2017-07-06 09:13 | Outpatient (CLI) | payer MEDICARE, MEDICAID, SELFPAY ==
[2017-07-06] VITALS (23 sets, daily range): BP systolic 93–143; BP diastolic 51–84; PULSE 105–124; RESP 18–113; TEMP 36.3–36.9; O2SAT 89–90; BMI 27.9
[2017-07-06 09:30] LABS: Hematocrit 27.4 % (37.0-47.0)
[2017-07-06 09:32] LABS: Hemoglobin 7.3 g/dL (12.2-16.2)
--- NOTE | 2017-07-06 15:54 | PC.NURSE ---
07/06/17 1205 Spoke with Shruthi Nolan APRN at Dr. Palomino's office regarding pt's history of CHF and not currently on diuretics. Pt has 2-3+ pitting edema of BLE's upon arrival to [facility] from [facility]. Pt is O2 dependent at 3lpm per nc at all times. Lungs diminished throughout with occasional rhonchi that clear with cough/ no crackles/rales auscultated prior to initiation of transfusion of 1st unit of blood. Order obtained for Lasix 20mg IV and KCL 10meq po x1 dose between units of blood. Applied STEPHEN hose to b/l legs at this time, as pt does wear these at [facility]. Legs elevated.
--- NOTE | 2017-07-06 15:57 | PC.NURSE ---
07/06/17 1348 Lasix 20mg IV and potassium 10meq po given at this time as per MD order. Pt with legs elevated and STEPHEN hose in use to BLE's. No crackles/rales auscultated throughout lung gillespie. occas rhonchi that clears with cough/diminished throughout. O2 sats remain 89/90% on o2 at 3lpm per nc. This is consistent with baseline per pt report, and same confirmed with nurse at [place] upon patient arrival to [facility] infusion unit
--- NOTE | 2017-07-06 15:59 | PC.NURSE ---
07/06/17 3395 Spoke with Shruthi Nolan APRN at Dr. Palomino's office concerning pt request for 1400 meds she receives at [place]. Pt reports pain in R hip and b/l legs that she reports as chronic, no acute changes. Order given for Rumsey 10/325mg po x1 dose. Also order obtained for Baclofen 20mg po and Xanax 0.5mg po x1 dose as per 1400 sched meds. 1508 Pt med with Rumsey, Baclofen and Xanax as per orders.
[2017-07-06 17:27] LABS: Hematocrit 38.5 % (37.0-47.0)
--- NOTE | 2017-07-06 17:51 | PC.NURSE ---
07/06/17 1738 Full report called to Nelly nurse in charge of Ms. Zhang at [place].
--- NOTE | 2017-07-06 18:50 | PC.NURSE ---
07/06/17 1415 2nd unit of blood verified per Alvaro iMramontes,BRO and Evelia Lutz RN. Pre and start blood vital signs entered. Blood status transfusing.
[2017-07-07 07:29] LABS: Hemoglobin 10.9 g/dL (12.2-16.2)
== END ==
PROVIDERS: Family Provider Internal Medicine Adolescent Medicine; Visit Provider Internal Medicine
DX: D64.9 Anemia, unspecified (principal)
CPT/HCPCS: 36430; 85014; 85018; 86850; P9016

== ENCOUNTER → 2017-07-09 11:25 | Outpatient (REF) | payer OTHER, MEDICARE, MEDICAID, SELFPAY | LOC: LAB 11:25 | PROVIDERS: Visit Provider Internal Medicine | DX: J44.1 Chronic obstructive pulmonary disease with (acute) exacerbation (principal) | CPT/HCPCS: 87070; 87077; 87205 ==

== ENCOUNTER → 2017-07-20 16:49 | Outpatient (REF) | payer OTHER, MEDICARE, MEDICAID, SELFPAY ==
[2017-07-20 17:12] LABS: Occult Blood,Stool Negative (Negative)
== END ==
LOC: LAB 16:49
PROVIDERS: Visit Provider Internal Medicine
DX: D64.9 Anemia, unspecified (principal)
CPT/HCPCS: 82272; G0328

== ENCOUNTER → 2018-02-23 13:45 | Outpatient (CLI) | payer MEDICARE, MEDICAID, SELFPAY | PROVIDERS: Visit Provider Family Medicine | DX: H10.32 Unspecified acute conjunctivitis, left eye (principal); R19.7 Diarrhea, unspecified | CPT/HCPCS: 87045; 87070; 87077; 87186 ==

== ENCOUNTER → 2018-07-12 20:12 | Outpatient (CLI) | payer MEDICARE, MEDICAID, SELFPAY | PROVIDERS: PCP Family Medicine; Visit Provider Family Medicine | DX: G47.33 Obstructive sleep apnea (adult) (pediatric) (principal); I10 Essential (primary) hypertension; J44.9 Chronic obstructive pulmonary disease, unspecified; G47.00 Insomnia, unspecified | CPT/HCPCS: 95810 ==

== ENCOUNTER → 2019-08-04 00:28 | Outpatient (CLI) | payer MEDICARE, MEDICAID, SELFPAY ==
[2019-08-04 00:59] LABS: Occult Blood,Stool Negative (Negative)
== END ==
PROVIDERS: PCP Family Medicine; Visit Provider Family Medicine
DX: R53.83 Other fatigue (principal)
CPT/HCPCS: 82272; G0328

== ENCOUNTER → 2019-08-07 21:36 | Outpatient (CLI) | payer MEDICARE, MEDICAID, SELFPAY ==
[2019-08-07 21:55] LABS: Occult Blood,Stool Negative (Negative)
== END ==
PROVIDERS: Visit Provider Family Medicine
DX: R53.83 Other fatigue (principal)
CPT/HCPCS: 82272; G0328

== ENCOUNTER 2020-01-18 17:18 | Emergency (ER) | payer MEDICARE, MEDICAID, SELFPAY ==
[2020-01-18 17:18] VITALS: BP 138/94; PULSE 107; RESP 19; TEMP 36.6; O2SAT 98; BMI 27.4
--- NOTE | 2020-01-18 17:26 | XR_ITS ---
PROCEDURE: XR PELVIS 1-2V CLINICAL INDICATION: fall Posttraumatic pain COMPARISON: CR HIPCMLT XR hip LT 2-3V w/pelvis from 05/20/2018 TECHNIQUE: XR Pelvis AP View FINDINGS: There are severe dysplastic changes of the right hip with acetabular protrusion no and dysplastic changes of the femoral head similar to the previous exam with volume loss and erosion of the right femoral head and neck. There are old bilateral pubic rami fractures and prominent hypertrophic changes of the right acetabulum laterally the. Injection granulomas are present on the right. Study is somewhat under penetrated. IMPRESSION: No acute fracture. 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
--- NOTE | 2020-01-18 17:26 | CT_ITS ---
PROCEDURE: CT HEAD/BRAIN WO CON CLINICAL INDICATION: trauma Head injury with headache/pain, contusion, abrasion or hematoma Loss of consciousness COMPARISON: CT HEADWO CT head/brain wo con from 05/20/2018 TECHNIQUE: Axial images obtained. All CT scans at the facility use one or more dose reduction, viz: automated exposure control, ma/kV adjustment per patient size (including targeted exams where dose is matched to indication, i.e. head), or iterative reconstruction technique. FINDINGS: No midline shift, mass effect, intracranial hemorrhage, hydrocephalus, or extra-axial fluid collection is evident. Patchy bilateral frontal parietal deep and subcortical white matter hypodensity nonspecific but may be related to microvascular ischemia. Chronic encephalomalacia change in the medial left occipital lobe unchanged the calvarium has an unremarkable appearance. No mastoid effusion. No sinus air-fluid level. IMPRESSION: No change with no acute intracranial findings. Dictated by: Robert Dennis MD 01/19/2020 06:45 Robert Dennis MD in [place] 01/19/2020 06:45
--- NOTE | 2020-01-18 17:26 | XR_ITS ---
PROCEDURE: XR CHEST PORTABLE CLINICAL HISTORY: fall Pain COMPARISON: CT CHW CT CHEST W/ CONTRAST from 12/18/2014 CR CXR2V XR chest 2V from 04/15/2017 CR CXR1VP XR chest portable from 05/02/2017 CR CXR2 XR chest AP from 05/20/2018 FINDINGS: The cardiomediastinal silhouette and pulmonary vascularity are within normal limits. There are chronic changes in the lung bases. No acute infiltrate. Old bilateral rib fractures. IMPRESSION: No change with no acute finding Dictated by: Robert Dennis MD 01/18/2020 19:56 Robert Dennis MD in [place] 01/18/2020 19:56
--- NOTE | 2020-01-18 17:26 | CT_ITS ---
PROCEDURE: CT CERVICAL SPINE WO CON CLINICAL INDICATION: trauma Neck injury with pain, contusion/abrasion or hematoma, cervical sprain/strain the COMPARISON: CT SPCERVWO CT cervical spine wo con from 05/20/2018 TECHNIQUE: Axial images obtained with sagittal and coronal reformats. All CT scans at the facility use one or more dose reduction, viz: automated exposure control, ma/kV adjustment per patient size (including targeted exams where dose is matched to indication, i.e. head), or iterative reconstruction technique. Axial spiral CT scanning performed of the cervical spine beginning at the base of the skull and continuing to the upper T-spine. 3-D multiplanar reconstruction with 3-D manipulation of volumetric data set in image rendering was completed by the radiologist and/or technologist with the supervision of the radiologist on independent workstation. FINDINGS: There is head tilt toward the left. There is mild multilevel cervical spondylosis with degenerative disc disease at C3-C4 C4-C5 and C5-C6. Mild left lateral recess and foraminal narrowing C5-C6 from uncovertebral hypertrophy. No fracture or dislocation. There are centrilobular emphysematous changes in the lung apices. IMPRESSION: 1. No acute fracture. 2. Cervical spondylosis. Dictated by: Robert Dennis MD 01/19/2020 06:48 Robert Dennis MD in [place] 01/19/2020 06:48
--- NOTE | 2020-01-18 17:43 | HMH.EDFALL ---
ED Disposition Clinical Impression: Acute UTI Concussion with loss of consciousness Qualifiers: Encounter type: initial encounter Qualified Code(s): S06.0X9A - Concussion with loss of consciousness of unspecified duration, initial encounter Disposition: Home, Self-Care Condition on Discharge: Good Instructions: DI for Concussion Prescriptions: cephALEXin [Keflex 500mg Cap] 500 mg PO BID 7 Days #14 cap Prescription Printed Referrals: Provider,Referral, MD [Primary Care Provider] - - Critical Care Critical Care Time: No Attestation: On 01/18/20, the high probability of a clinically significant, sudden or life threatening deterioration of the following system(s) required my full and direct attention, intervention and personal management. The time I documented below is in addition to time spent performing reported procedures but includes the following listed in this critical care notation. Medical Decision Making - Zoran Inquiry Pt receiving controlled substance: No Vital Signs: 01/18/20 17:18 Temperature 97.9 F Temperature Source Temporal Artery Scan Pulse Rate [Right] 107 H Respiratory Rate 19 Blood Pressure [Right Arm] 138/94 H Blood Pressure Mean [Right Arm] 108 02 Sat by Pulse Oximetry 98 - Lab Data Lab Results 01/18/20 17:40: WBC 6.7, RBC 4.56, Hgb 13.7, Hct 43.9, MCV 96.2, MCH 30.1, MCHC 31.3 L, RDW 12.8, Plt Count 234, MPV 7.7, Neut % (Auto) 60.2, Lymph % (Auto) 30.8, [place] % (Auto) 4.3, Eos % (Auto) 4.1, Baso % (Auto) 0.8, Neut # (Auto) 4.0, Lymph # (Auto) 2.1, [place] # (Auto) 0.3, Eos # (Auto) 0.3, Baso # (Auto) 0.1 01/18/20 17:40: PT 11.7, INR 1.06, APTT 33.3 01/18/20 17:40: Sodium 137, Potassium 3.9, Chloride 97 L, Carbon Dioxide 37 H, Anion Gap 6.9, BUN 11, Creatinine 0.60, Estimated Creat Clear 65, Estimated GFR 101, Est GFR ( Amer) 122, Glucose 107 H, Calcium 9.1, Total Bilirubin 0.5, AST 34, ALT 11 L, Alkaline Phosphatase 110, Total Protein 7.3, Albumin 4.3, Globulin 3.0, Albumin/Globulin Ratio 1.4 01/18/20 18:01: Urine Color Yellow, Urine Appearance Clear, Urine pH 6.0, Ur Specific Jolo 1.020, Urine Protein Negative, Urine Glucose (UA) Negative, Urine Ketones Negative, Urine Blood Negative, Urine Nitrate Negative, Urine Bilirubin Negative, Urine Urobilinogen 0.2, Ur Leukocyte Esterase 1+ A, Urine RBC 3-5, Urine WBC 5-10, Ur Squamous Epith Cells 5-10, Urine Bacteria 2+, Hyaline Casts 5-10 Result diagrams: 01/18/20 17:40 01/18/20 17:40 Orders (Tests/Meds): ED MEDICATIONS Generic Name Dose Route Start Last Admin Trade Name Freq PRN Reason Stop Dose Admin Ceftriaxone Sodium 1 gm/ 50 mls @ 100 mls/hr 01/18/20 19:30 Sodium Chloride IV 02/01/20 19:29 Q[facility]H [facility] Protocol ORDERS Category Date Time Status CT cervical spine wo con Stat Cat Scan 01/18/20 17:[address] head/brain wo con Stat Cat Scan 01/18/20 17:26 Taken Pelvis XR 1-2 views [XR pelvis 1-2V] Stat Exams 01/18/20 17:26 Taken XR chest portable Stat Exams 01/18/20 17:26 Taken Urine Culture Stat Micro 01/18/20 18:01 Received - Radiology Data #1 Image(s): Chest, Hip Image Reviewed: Yes I reviewed the patient's radiology results, Yes I reviewed the patient's radiology image w/the ED provider No acute findings of the pelvis, no change from April 2018. Severe osteopenia. Severe chronic arthropathy of the right hip with chronic protrusion acetabulum. Old healed fractures of the pubic rami. Chest unremarkable. - CT Data CT Scan: Head, C-Spine Time Received: 19:[address] Reviewed: Yes: I have reviewed the patient's CT results, I have viewed the radiologist's interpretation Findings Narrative: No acute intracranial process. No intracranial hemorrhage or mass-effect. 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 Atrophy and chronic microvascular changes. - Reevaluation(s) Time: 19:41 Reevaluation #1: On reevaluation, the patient is
[2020-01-18 17:47] LABS: Basophils # 0.1 K/mm3 (0-0.2); Basophils % 0.8 % (0.1-2.0); Eosinophils # 0.3 K/mm3 (0.0-0.4); Eosinophils % 4.1 % (0.1-12.0); Hematocrit 43.9 % (37.0-47.0); Hemoglobin 13.7 g/dL (12.2-16.2); Lymphocytes # 2.1 K/mm3 (0.7-4.5); Lymphocytes % 30.8 % (10-50); Mean Corpuscular HGB Conc 31.3 g/dL (31.8-35.4); Mean Corpuscular Hemoglobin 30.1 pg (27.0-31.2); Mean Corpuscular Volume 96.2 fl (81-99); Mean Platelet Volume 7.7 fl (7.4-10.4); Monocytes # 0.3 K/mm3 (0.1-1.0); Monocytes % 4.3 % (1.7-9.3); Neutrophils % 60.2 % (37.0-80.0); Platelet Count 234 K/mm3 (142-424); Red Blood Count 4.56 M/mm3 (4.20-5.40); Red Cell Distribution Width 12.8 % (11.5-17.5); White Blood Count 6.7 K/mm3 (4.8-10.8)
[2020-01-18 17:49] LABS: Chloride 97 mmol/L (98-107)
[2020-01-18 17:50] LABS: Potassium 3.9 mmoL/L (3.5-5.1); Sodium 137 mmol/L (136-145)
[2020-01-18 17:52] LABS: Alanine Aminotransferase 11 U/L (12-78); Aspartate Amino Transferase 34 U/L (14-36); Blood Urea Nitrogen 11 mg/dl (7-17); Creatinine Clearance Estimated 65 mL/min (50-200); Estimated Glomerular Filt Rate 101 ml/min (>60); GFR (African American) 122 ML/MIN (>60)
[2020-01-18 17:53] LABS: Albumin Level 4.3 g/dl (3.5-5.0); Albumin/Globulin Ratio 1.4 (1.1-1.8); Alkaline Phosphatase 110 U/L (38-126); Anion Gap 6.9 mEq/L (5-15); Bilirubin,Total 0.5 mg/dl (0.2-1.3); Calcium 9.1 mg/dl (8.4-10.2); Carbon Dioxide 37 mmol/L (22.0-30.0); Glucose 107 mg/dl (74-100); Total Protein,Serum 7.3 g/dl (6.3-8.2)
[2020-01-18 17:57] LABS: Activated Partial Thrombo Time 33.3 seconds (23.6-34.0); INR 1.06 (0.9-1.1); Prothrombin Time 11.7 seconds (9.4-11.8)
[2020-01-18 18:11] LABS: Microscopic, Urine URINE MICROSCOPIC (MICROSCOPIC)
[2020-01-18 18:14] LABS: Appearance,Urine CLEAR (Clear); Bilirubin,Urine Negative (Negative); Blood, Urine Negative (Negative); Color,Urine YELLOW (Yellow); Glucose,Urine (UA) Negative (Negative); Ketones,Urine Negative (Negative); Leukocyte Esterase,Urine 1+ (Negative); Nitrate,Urine Negative (Negative); Protein,Urine Negative (Negative); Urobilinogen,Urine 0.2 EU/dl (0.2)
[2020-01-18 18:21] LABS: Bacteria,Urine 2+ /lpf
[2020-01-18 19:00] VITALS: BP 145/88; PULSE 107; RESP 17; O2SAT 95
[2020-01-18 19:30] VITALS: BP 133/93; PULSE 111; RESP 17; O2SAT 97
[2020-01-18 20:07] VITALS: BP 133/80; PULSE 96; RESP 16; TEMP 36.6; O2SAT 96
== END 2020-01-18 20:30 | disposition home or self-care (01) ==
PROVIDERS: Emergency Provider Emergency Medicine
DX: S06.0X9A Concussion with loss of consciousness of unspecified duration, initial encounter (principal); W01.0XXA Fall on same level from slipping, tripping and stumbling without subsequent striking against object, initial encounter; Y92.129 Unspecified place in nursing home as the place of occurrence of the external cause; I48.20 Chronic atrial fibrillation, unspecified; J44.9 Chronic obstructive pulmonary disease, unspecified; F41.8 Other specified anxiety disorders; K21.9 Gastro-esophageal reflux disease without esophagitis; E78.5 Hyperlipidemia, unspecified; I10 Essential (primary) hypertension; F17.210 Nicotine dependence, cigarettes, uncomplicated; N39.0 Urinary tract infection, site not specified
CPT/HCPCS: 70450; 71045; 72125; 72170; 80053; 81001; 85025; 85610; 85730; 87086; 96372; 99283

== ENCOUNTER 2020-01-22 16:52 | Observation (INO) | payer MEDICARE, MEDICAID, SELFPAY ==
[2020-01-22] VITALS (7 sets, daily range): BP systolic 122–139; BP diastolic 75–98; PULSE 99–120; RESP 15–18; TEMP 36.8; O2SAT 97–99; BMI 24.2; BMI 25.0
--- NOTE | 2020-01-22 16:51 | CT_ITS ---
PROCEDURE: CT CERVICAL SPINE WO CON CLINICAL INDICATION: fall Neck injury with pain, contusion/abrasion or hematoma, cervical sprain/strain the COMPARISON: CT CT HEAD/BRAIN WO CON from 01/18/[address] CERVICAL SPINE WO CON from 01/18/2020 TECHNIQUE: Axial images obtained with sagittal and coronal reformats. All CT scans at the facility use one or more dose reduction, viz: automated exposure control, ma/kV adjustment per patient size (including targeted exams where dose is matched to indication, i.e. head), or iterative reconstruction technique. Axial spiral CT scanning performed of the cervical spine beginning at the base of the skull and continuing to the upper T-spine. 3-D multiplanar reconstruction with 3-D manipulation of volumetric data set in image rendering was completed by the radiologist and/or technologist with the supervision of the radiologist on independent workstation. FINDINGS: There is mild lower cervical curvature convex left and upper cervical curvature convex right. No acute fracture or dislocation is evident. There is multilevel degenerative disc disease from C2-C7. There is uncovertebral hypertrophy on the left at C5-C6. Mild bulging disc C3-C4 Upper thoracic images show COPD with centrilobular emphysema changes the. There are encephalomalacia changes in the left occipital lobe IMPRESSION: 1. No acute fracture. 2. Cervical spondylosis Dictated by: Robert Dennis MD 01/22/2020 19:22 Robert Dennis MD in [facility] 01/22/2020 19:22
--- NOTE | 2020-01-22 16:52 | CT_ITS ---
PROCEDURE: CT THORACIC SPINE WO CON CLINICAL HISTORY: fall Posttraumatic pain COMPARISON: CR CXR2V XR chest 2V from 04/15/2017 CR CXR2 XR chest AP from 05/20/2018 TECHNIQUE: Axial images obtained with sagittal and coronal reformats. All CT scans at the facility use one or more dose reduction, viz: automated exposure control, ma/kV adjustment per patient size (including targeted exams where dose is matched to indication, i.e. head), or iterative reconstruction technique. FINDINGS: There is diffuse osteopenia. There is severe wedge compression fracture of T12. This did appear to be present on a prior lateral chest radiograph of 04/15/2017 and may be slightly progressed compared to the previous exam. There is retropulsion of the posterior superior aspect of T12 by 4 mm. Kyphosis is present at this area. There is mild wedging of T10 which is also chronic. No acute compression fractures are evident. There is COPD in the lungs and there are coronary artery calcifications. IMPRESSION: 1. Chronic wedge compression fracture of T12 which may be slightly progressed compared to the prior radiograph with 4 mm retropulsion of the posterior superior aspect and kyphosis. 2. Mild chronic wedging of T10 3. No definite acute fracture apparent Dictated by: Robert Dennis MD 01/22/2020 19:30 Robert Dennis MD in [facility] 01/22/2020 19:30
--- NOTE | 2020-01-22 16:54 | CT_ITS ---
PROCEDURE: CT LUMBAR SPINE WO CON CLINICAL HISTORY: fall Posttraumatic pain COMPARISON: CR HIP2R HIP-2 VIEWS-RT from 12/01/2014 TECHNIQUE: Axial images obtained with sagittal and coronal reformats. All CT scans at the facility use one or more dose reduction, viz: automated exposure control, ma/kV adjustment per patient size (including targeted exams where dose is matched to indication, i.e. head), or iterative reconstruction technique. FINDINGS: There is mild superior endplate compression change of L3 and L4 age indeterminate. No retropulsion. There is diffuse osteopenia. Mild bulging disc is present at L3-L4. There is bulging disc at L4-5 with facet and ligamentum hypertrophy with narrowing of the canal. Bulging disc also present at L5-S1 Severe dysplastic changes are present involving the right femoral head and neck with diffuse enlargement of the right acetabulum and thinning of the acetabulum medially with diffuse slight increased soft tissue density within the enlarged hip joint. These findings have progressed since an older hip radiograph of 12/01/2014 There is a moderate amount of retained colonic feces. IMPRESSION: 1. Mild wedging of L3 and L4 age indeterminate. 2. Bulging disc at L 3 L4 and L4-5 and L5-S1 with narrowing of the canal at L4-5 3. Severe dysplastic changes of the right hip which have progressed compared to the previous exam with acetabular protrusio and large right hip joint effusion Dictated by: Robert Dennis MD 01/22/2020 19:38 Robert Dennis MD in [facility] 01/22/2020 19:38
--- NOTE | 2020-01-22 16:54 | XR_ITS ---
PROCEDURE: XR KNEE LT 3V CLINICAL INDICATION: trauma Posttraumatic pain COMPARISON: CR XR FEMUR LT 2V from 01/22/2020 CR XR TIBIA FIBULA LT 2V from 01/22/2020 FINDINGS: There is depression of the lateral tibial plateau. There are no previous exams to compare to determine if this is acute or chronic. The there are mild osteoarthritic changes of both the medial and lateral compartment and patellofemoral joint. Other findings:None. IMPRESSION: There is depression of the lateral tibial plateau. This has more of a chronic appearance radiographically however, this is not conclusive. Please correlate with clinical findings. If there is focal pain in this area then CT may provide further evaluation. Dictated by: Robert Dennis MD 01/22/2020 19:02 Robert Dennis MD in [facility] 01/22/2020 19:02
--- NOTE | 2020-01-22 16:55 | XR_ITS ---
PROCEDURE: XR FEMUR LT 2V CLINICAL INDICATION: trauma Posttraumatic pain COMPARISON: No exams were available for comparison FINDINGS: No fracture or dislocation. No lytic or blastic change. There is normal mineralization. The joint spaces are well-preserved. No significant degenerative/arthritic changes. No erosive changes evident. Other findings:None. IMPRESSION: No acute findings. Dictated by: Robert Dennis MD 01/22/2020 19:05 Robert Dennis MD in [facility] 01/22/2020 19:05
--- NOTE | 2020-01-22 17:15 | PC.NURSE ---
Pt to rad
--- NOTE | 2020-01-22 17:56 | PC.NURSE ---
Ortho paged for consult
--- NOTE | 2020-01-22 17:58 | PC.NURSE ---
speaking to Dr Leija
--- NOTE | 2020-01-22 17:59 | PC.NURSE ---
Dr Leija stated to consult Dr Platt
--- NOTE | 2020-01-22 18:00 | PC.NURSE ---
speaking to Dr Platt
--- NOTE | 2020-01-22 18:02 | PC.NURSE ---
Paging Sloan at this time
--- NOTE | 2020-01-22 18:04 | PC.NURSE ---
speaking to Dr Fish
--- NOTE | 2020-01-22 18:12 | HMH.EDFALL ---
ED Disposition Clinical Impression: Compression fracture of body of thoracic vertebra Compression fracture of lumbar vertebra Qualifiers: Encounter type: initial encounter Lumbar vertebra fracture level: unspecified lumbar vertebra Qualified Code(s): S32.000A - Wedge compression fracture of unspecified lumbar vertebra, initial encounter for closed fracture Clinical Impression: (Ruled Out): Compression fracture of lumbar spine, non-traumatic Disposition: Admitted As Inpatient Condition on Discharge: Good Referrals: Vargas Greene MD [Primary Care Provider] - - Critical Care Critical Care Time: No Attestation: On 01/22/20, the high probability of a clinically significant, sudden or life threatening deterioration of the following system(s) required my full and direct attention, intervention and personal management. The time I documented below is in addition to time spent performing reported procedures but includes the following listed in this critical care notation. Medical Decision Making - Medical Records Medical records reviewed: Yes: I reviewed the patient's medical records. - Zoran Inquiry Pt receiving controlled substance: No Vital Signs: 01/22/20 16:47 Pulse Rate [Radial] 115 H Respiratory Rate 18 Blood Pressure [Right Arm] 137/90 Blood Pressure Mean [Right Arm] 105 Blood Pressure Source [Right Arm] Automatic Cuff Blood Pressure Position [Right Arm] Sitting 02 Sat by Pulse Oximetry 99 Oxygen Delivery Method Nasal Cannula Oxygen Flow Rate (LPM) 3 Orders (Tests/Meds): ED MEDICATIONS Generic Name Dose Route Start Last Admin Trade Name Freq PRN Reason Stop Dose Admin Acetaminophen 650 mg 01/22/20 18:09 Acetaminophen 325mg Tab PO 02/21/20 18:08 Q4HP PRN As Needed for Fever or Pain Ondansetron HCl 4 mg 01/22/20 18:09 Ondansetron 4mg/2ml Vial IV 02/21/20 18:08 Q8HP PRN Nausea Discontinued Medications Generic Name Dose Route Start Last Admin Trade Name Freq PRN Reason Stop Dose Admin Acetaminophen 1,000 mg 01/22/20 16:55 01/22/20 17:06 Acetaminophen 500mg Tab PO 01/22/20 16:56 1,000 mg ONCE ONE Administration ORDERS Category Date Time Status CT cervical spine wo con Stat Cat Scan 01/22/20 16:[address] lumbar spine wo con Stat Cat Scan 01/22/20 16:[address] thoracic spine wo con Stat Cat Scan 01/22/20 16:52 Taken Femur XR left 2 views [XR femur LT 2V] Stat Exams 01/22/20 16:55 Taken Knee XR left 3 views [XR knee LT 3V] Stat Exams 01/22/20 16:54 Taken Tibia/fibula XR left 2 views [XR tibia fibula LT 2V] Exams 01/22/20 16:55 Taken Stat Basic Metabolic Panel [facility] Lab 01/23/20 06:00 Ordered Complete Blood Count Auto Diff [facility] Lab 01/23/20 06:00 Ordered Complete Blood Count Auto Diff Stat Lab 01/22/20 18:04 Ordered Comprehensive Metabolic Panel Stat Lab 01/22/20 18:04 Ordered Covid-19 IgG/IgM ([facility]) Stat Lab 01/22/20 18:04 Ordered Prothrombin Time INR [facility] Lab 01/23/20 06:00 Ordered Medical Decision Narrative: 64-year-old female presenting after a fall with pain to her back and left lower extremity. Nonfocal, neuro intact on exam. CT of the C-spine was negative for acute disease. CT of the T and L-spine without contrast was also obtained which showed multiple compression fractures including a near complete loss of T11 with retropulsion and a T9 and L2/L3 compression fractures. Patient was given Tylenol for pain control. I spoke with orthopedics about this who recommended I consult pain treatment so I called Dr. Platt who advised that I should admit the patient for further work-up and management including MRIs of the T and L-spine which I ordered. X-rays were also obtained of the left femur, knee and hip/fib and these final reads are pending. I also spoke to the admitting physician who will manage the patient in hospital. Patient remained stable in the ED. Fall HPI - General Chief Complaint: Fal
[2020-01-22 18:42] LABS: Basophils # 0.1 K/mm3 (0-0.2); Basophils % 0.6 % (0.1-2.0); Eosinophils # 0.3 K/mm3 (0.0-0.4); Eosinophils % 3.3 % (0.1-12.0); Hematocrit 43.5 % (37.0-47.0); Hemoglobin 14.3 g/dL (12.2-16.2); Lymphocytes # 2.3 K/mm3 (0.7-4.5); Lymphocytes % 24.5 % (10-50); Mean Corpuscular HGB Conc 32.8 g/dL (31.8-35.4); Mean Corpuscular Hemoglobin 30.9 pg (27.0-31.2); Mean Corpuscular Volume 94.4 fl (81-99); Mean Platelet Volume 8.3 fl (7.4-10.4); Monocytes # 0.4 K/mm3 (0.1-1.0); Monocytes % 4.1 % (1.7-9.3); Neutrophils # 6.4 K/mm3 (1.8-7.8); Neutrophils % 67.5 % (37.0-80.0); Platelet Count 233 K/mm3 (142-424); Red Blood Count 4.61 M/mm3 (4.20-5.40); Red Cell Distribution Width 12.7 % (11.5-17.5); White Blood Count 9.4 K/mm3 (4.8-10.8)
[2020-01-22 18:53] LABS: Alanine Aminotransferase 10 U/L (12-78); Albumin Level 4.3 g/dl (3.5-5.0); Albumin/Globulin Ratio 1.4 (1.1-1.8); Alkaline Phosphatase 127 U/L (38-126); Anion Gap 10.5 mEq/L (5-15); Aspartate Amino Transferase 38 U/L (14-36); Bilirubin,Total 0.5 mg/dl (0.2-1.3); Blood Urea Nitrogen 13 mg/dl (7-17); Calcium 9.5 mg/dl (8.4-10.2); Carbon Dioxide 36 mmol/L (22.0-30.0); Chloride 96 mmol/L (98-107); Creatinine Clearance Estimated 61 mL/min (50-200); Estimated Glomerular Filt Rate 101 ml/min (>60); GFR (African American) 122 ML/MIN (>60); Globulin 3.1 g/dL (1.3-3.2); Glucose 101 mg/dl (74-100); Potassium 3.5 mmoL/L (3.5-5.1); Sodium 139 mmol/L (136-145); Total Protein,Serum 7.4 g/dl (6.3-8.2)
--- NOTE | 2020-01-22 19:09 | PC.NURSE ---
report given to danae
[2020-01-22 19:11] LABS: Coronavirus 19 IgG Antibody Negative (Negative); Coronavirus 19 IgM Antibody Negative (Negative)
--- NOTE | 2020-01-22 19:30 | PC.NURSE ---
received report from [facility]. head to toe assessment reveals a small reddened area to right lateral hip
--- NOTE | 2020-01-22 20:39 | PC.NURSE ---
PT ARRIVED TO THE VIA STRETCHER FROM ED W/ STAFF AT 2037.
[2020-01-23 03:37] VITALS: BP 126/81; PULSE 114; RESP 20; TEMP 36.6; O2SAT 99
--- NOTE | 2020-01-23 04:00 | PC.NURSE ---
Pt is A&Ox3 to person, place, and situation. Pt did not know the d/m/y and did not want to attempt.Pt has c/o pain to back but fell asleep quickly before medicated. Pt slept very well during the night. Tolliver cath in place draining clear, bright ylw urine to gravity. HR tachycardic t/o shift. Pt does have hx of Afib and heart sounds are irregular. Pt denies any cp, SOB or feeling of palpitations. Peripheral pulses 2+, no pitting edema noted. Bed alarm in use for safety d/t frequent falls. Call light within reach, will continue to monitor.
[2020-01-23 05:02] VITALS: BMI 25.4
[2020-01-23 07:30] LABS: Chloride 96 mmol/L (98-107); Sodium 141 mmol/L (136-145)
[2020-01-23 07:31] LABS: Basophils # 0.1 K/mm3 (0-0.2); Basophils % 0.7 % (0.1-2.0); Eosinophils # 0.3 K/mm3 (0.0-0.4); Eosinophils % 3.3 % (0.1-12.0); Hematocrit 43.7 % (37.0-47.0); Hemoglobin 14.6 g/dL (12.2-16.2); Lymphocytes # 2.1 K/mm3 (0.7-4.5); Lymphocytes % 22.4 % (10-50); Mean Corpuscular HGB Conc 33.4 g/dL (31.8-35.4); Mean Corpuscular Hemoglobin 31.5 pg (27.0-31.2); Mean Corpuscular Volume 94.4 fl (81-99); Mean Platelet Volume 8.4 fl (7.4-10.4); Monocytes # 0.3 K/mm3 (0.1-1.0); Monocytes % 3.3 % (1.7-9.3); Neutrophils # 6.7 K/mm3 (1.8-7.8); Neutrophils % 70.4 % (37.0-80.0); Platelet Count 252 K/mm3 (142-424); Potassium 3.3 mmoL/L (3.5-5.1); Red Blood Count 4.63 M/mm3 (4.20-5.40); Red Cell Distribution Width 12.9 % (11.5-17.5); White Blood Count 9.5 K/mm3 (4.8-10.8)
[2020-01-23 07:33] LABS: Blood Urea Nitrogen 10 mg/dl (7-17); Creatinine Clearance Estimated 53 mL/min (50-200); Estimated Glomerular Filt Rate 124 ml/min (>60); GFR (African American) 150 ML/MIN (>60)
[2020-01-23 07:34] LABS: Anion Gap 13.3 mEq/L (5-15); Calcium 9.2 mg/dl (8.4-10.2); Carbon Dioxide 35 mmol/L (22.0-30.0); Glucose 91 mg/dl (74-100)
[2020-01-23 07:39] LABS: INR 0.98 (0.9-1.1); Prothrombin Time 10.9 seconds (9.4-11.8)
--- NOTE | 2020-01-23 07:39 | P.CONPHA_ITS ---
[facility] Pharmacy VTE Monitoring - Patient Demographics Admission date: 01/23/20 Report Date: 01/23/20 Time: 07:39 Allergies/Adverse Reactions: Patient Allergies No Known Allergies Allergy (Verified 08/29/18 09:19) Height: 1.52 m Weight: 58.769 kg Patient Problems: Current Active Problems Compression fracture of body of thoracic vertebra (Acute) Compression fracture of lumbar vertebra (Acute) - VTE Risk Labs: VTE Related Lab Results Hgb 14.6 g/dL (12.2-16.2) 01/23/20 06:50 Hct 43.7 % (37.0-47.0) 01/23/20 06:50 Plt Count 252 K/mm3 (142-424) 01/23/20 06:50 BUN 10 mg/dl (7-17) 01/23/20 06:50 Creatinine 0.50 mg/dl (0.52-1.04) L 01/23/20 06:50 Estimated Creat Clear 53 mL/min (50-200) 01/23/20 06:50 Was VTE Risk Assessment Performed: Yes VTE Score: 4 VTE Risk Level: Low Risk Clinical Trial Participant: No - Prophylaxis VTE Prophylaxis Ordered?: Yes Types of VTE Prophylaxis: TEDS Knee High
[2020-01-23 07:50] VITALS: BP 135/93; PULSE 120; RESP 18; TEMP 36.6; O2SAT 96
--- NOTE | 2020-01-23 10:28 | HMH.PHAINT ---
MEDICATION RECONCILIATION COMPLETED ON PATIENT USING MAR FROM [facility]. -YOJANA HERRERA, HARLEYD
--- NOTE | 2020-01-23 10:29 | HMH.HP ---
*Admission Date: 01/23/20 <Chelo Wesley - 01/23/20 10:57> *Chief complaint: Falls with excruciating back pain <Chelo Wesley - 01/23/20 10:57> *History of present illness: Ms. Cardenas is a 64-year-old female resident of [facility] with multiple medical issues to include end-stage COPD under hospice care, chronic respiratory failure, GERD, anxiety, depression, atrial fib, failure to thrive, fibromyalgia, migraine headaches, anemia, old right hip fracture in 2013 with no surgical intervention, chronic pain syndrome, polypharmacy who presented to [facility] emergency room for evaluation after her third or fourth fall. Patient states she does not recall why she got out of bed. She has not walked in a couple years but did try to go to the bathroom. She notes that she was started on a new medicine, Klonopin, and sort of went crazy after starting this medicine. She is also followed by psych at [place] who change the Xanax to Klonopin recently. In speaking with her nurse, Lesley, yesterday the medication was held due to her altered mental status. But then she again fell resulting in the severe back pain. Thus she was sent to the emergency room. Patient states she has been eating poorly as usual. She has had recent diarrhea. She states her breathing has been good. She denies any chest pain. With evaluation in the emergency room patient had numerous imaging:CT of the cervical spine showed no acute fracture with cervical spondylosis. CT of the thoracic spine showed chronic wedge compression fractures of T12 which may be slightly progressed compared to prior imaging, mild chronic wedging of T10 with no definite acute fracture apparent. Left knee x-ray showed Depression of the lateral tibial plateau which had more of a chronic appearance. CT of the lumbar spine revealed mild wedging of L3 and L4 age and indeterminate with a bulging disc at L3-L4 and L4-5 and L5-6 S1 with narrowing of the canal as well as severe dysplastic changes of the right hip which have progressed when compared to previous exams. Left femur x-ray showed no acute findings and left knee x-ray showed depressed. Laboratory data shows a normal CBC on admission with repeat being normal as well. Blood chemistries on admission do indicate a low potassium with normal renal function. Covid IgG G and IgM were negative. Patient was given Tylenol For the pain in the emergency room and Zofran 4 mg.To note patient routinely takes morphine 60 mgTwice daily and scheduled [place] 35 milligrams?10 mg every 6 hours.She is also been on muscle relaxants. And takes Topamax for her headaches. Patient was admitted for further evaluation and treatment with consultation with Dr. Platt, pain management, and to have MRIs of her back. <Chelo Wesley 01/23/20 10:57> [facility] History Medical History: Reports:: Anxiety, Arrhythmia, Atrial Fibrillation, Congestive Heart Failure, Chronic Obstructive Pulmonary Disease (COPD), Coronary Artery Disease, Dementia, Depression, Gastroesophageal Reflux Disease(GERD), Home Oxygen, Hyperlipidemia, Hypertension, Lung Disease, Migraine, Osteoporosis Denies:: Cancer, Diabetes Mellitus Type 1, Diabetes Mellitus Type 2, Internal Pacemaker, MRSA, Seizures <Chelo Wesley 01/23/20 10:57> *Have you ever received a pneumonia vaccine?: No <Chelo Wesley 01/23/20 10:57> *Have you received a flu vaccine this season?: No <Chelo Wesley 01/23/20 10:57> Other Medical History: Reports: Anemia, Arthritis, Cataracts, Fibromyalgia <Chelo Wesley 01/23/20 10:57> Other Surgeries: Yes: Cholecystectomy, Colonoscopy, , Hernia Repair, Hysterectomy-Total. No: Pacemaker <Chelo Wesley 01/23/20 10:57> Amputation: No <Chelo Wesley 01/23/20 10:57> Fractures: No <Chelo Wesley 01/23/20 10:57> - *Social History Smoking Status: Former smoker <Chelo Wesley 01/23/20 10:57> Alcohol Intake: never <Chelo Wesley 01/23/20 10:57> Alcohol Intake Frequency:
--- NOTE | 2020-01-23 10:32 | SW/DCPLANNER ---
Addendum entered by Xiomy Prather 01/24/20 13:55: I have updated Doreen with [facility] regarding this patient. Addendum entered by Xiomy Prather 01/23/20 10:34: Updated information has also been faxed to Doreen. Original Note: This patient currently resides at [facility]. I have spoke with Doreen at [facility] and she has stated that patient is currently [facility] level of care. I will continue to follow up with this patient during her stay here. Discharge date is unknown.
[2020-01-23 15:28] VITALS: BP 152/96; PULSE 113; RESP 17; TEMP 36.9; O2SAT 99
--- NOTE | 2020-01-23 16:09 | PC.NURSE ---
Patient is resting comfortably in bed. Has requested medication for back and leg pain. Refuses to watch television or allow staff to open her shades or turn on her lights.
[2020-01-23 18:15] VITALS: O2SAT 92
--- NOTE | 2020-01-23 19:00 | PC.NURSE ---
Patient has complained of pain intermittently. Pain is well controlled with medication. Patient remains alert x 4. Nasal cannula 3-4L.
[2020-01-23 19:55] VITALS: BP 140/88; PULSE 112; RESP 18; TEMP 36.9; O2SAT 98
[2020-01-23 20:50] VITALS: PULSE 109; O2SAT 98
[2020-01-24 04:00] VITALS: BP 160/88; PULSE 112; RESP 18; TEMP 36.8; O2SAT 98
--- NOTE | 2020-01-24 04:20 | PC.NURSE ---
Pt is A&O to person, place, and reason for being in the hospital. Pt has turned her self or staff aided in reposition when pt allowed. Pt has requested that all lights be turned off to promote sleep because she hasn't slept in days . Bed alarm active for safety d/t recent and frequent falls. Pt refused TEDS. Lungs clear although diminished, pt on 3LPM via NC- pt home dependent on 3LPM, SaO2 98% this shift. Pt denies any SOB or dyspnea. Pt c/o pain to back radiating to feet, pain medications administered per MAR with good relief as pt slept for several hours this shift. Tolliver cath in place draining clear, straw colored urine to gravity. Pt continues to have elevated and irregular HR, pt has h/o Afib and rate 109-113 this shift. Call light within reach, will continue to monitor.
[2020-01-24 05:27] VITALS: BMI 25.2
[2020-01-24 08:00] VITALS: BP 140/96; PULSE 121; RESP 16; TEMP 37; O2SAT 94
--- NOTE | 2020-01-24 08:30 | MR_ITS ---
PROCEDURE: MR THORACIC SPINE WO CON CLINICAL INDICATION: COMPRESSION FX Back pain, compression fractures age indeterminate COMPARISON: CT CT THORACIC SPINE WO CON from 01/22/2020 TECHNIQUE: Routine multiplanar multi echo sequences are performed without gadolinium enhancement. FINDINGS: There is kyphosis of the thoracic spine. Moderate to severe wedge compression changes are present at T12 which are chronic. There is a complete defect within the central aspect of T12 vertebral body. Motion artifact does somewhat obscure fine detail. There is also mild wedging of the T10 vertebral body which appears chronic. No acute fracture or dislocation is evident. No extruded herniated disc. There is minimal retropulsion of the posterior superior aspect of T12 vertebral body in the right paracentral region by approximately 3 mm. IMPRESSION: 1. Kyphosis of the thoracic spine with chronic wedge compression changes of T12 and T10. No acute fracture evident. 2. Mild retropulsion of the posterior superior aspect of T12 on the right without cord impingement. Dictated by: Robert Dennis MD 01/24/2020 14:32 Robert Dennis MD in [facility] 01/24/2020 14:32
--- NOTE | 2020-01-24 09:57 | HMH.ACPN2 ---
Internal Medicine - PN: Subj *Date: 01/24/20 *Time: 09:57 Interval history: No new complaints this morning. MRI was not done yesterday and will be completed this morning. She does not feel she slept very well however nurses notes document that she seemed to be sleeping when the room was entered. She continues to complain of her back pain but nursing staff notes pain relief with her medication. Exam Vital signs and Labs for Last 24 Hours: Temp Pulse Resp BP Pulse Ox 98.6 F 121 H 16 140/96 H 94 L 01/24/20 08:00 01/24/20 08:00 01/24/20 08:00 01/24/20 08:00 01/24/20 08:00 I & O for Last 24 hours: Intake & Output 01/21/20 01/22/20 01/23/20 01/24/20 11:59 11:59 11:59 11:59 Intake Total 110 / 110 710 / 710 Output Total 400 / 400 1050 / 1050 Balance -290 / -290 -340 / -340 Weight 129 lb 9 oz 128 lb 7 oz Narrative: She appears in no distress lying flat in bed. Chest with coarse breath sounds. Heart is irregularly irregular. I did not attempt to set her up this morning. Assessment and Plan (1) Compression fracture of body of thoracic vertebra Status: Acute Category: Medical Code(s): S22.000A - Wedge compression fracture of unspecified thoracic vertebra, initial encounter for closed fracture (2) Compression fracture of lumbar vertebra Status: Acute Qualifiers: Encounter type: initial encounter Lumbar vertebra fracture level: unspecified lumbar vertebra Qualified Code(s): S32.000A - Wedge compression fracture of unspecified lumbar vertebra, initial encounter for closed fracture Category: Medical Code(s): S32.000A - Wedge compression fracture of unspecified lumbar vertebra, initial encounter for closed fracture (3) Hypokalemia Status: Acute Category: Medical Code(s): E87.6 - Hypokalemia (4) Fall Status: Acute Qualifiers: Encounter type: initial encounter Qualified Code(s): W19.XXXA - Unspecified fall, initial encounter Category: Medical Code(s): W19.XXXA - Unspecified fall, initial encounter (5) Chronic atrial fibrillation Status: Chronic Category: Medical Code(s): I48.2 - Chronic atrial fibrillation (6) Chronic pain syndrome Status: Chronic Category: Medical Code(s): G89.4 - Chronic pain syndrome (7) Depression Status: Chronic Category: Medical Code(s): F32.9 - Major depressive disorder, single episode, unspecified (8) Fibromyalgia Status: Chronic Category: Medical Code(s): M79.7 - Fibromyalgia (9) Osteoarthritis Status: Chronic Category: Medical Code(s): M19.90 - Unspecified osteoarthritis, unspecified site - Assessment and plan all Dx Assessment and Plan for all problems:: MRI to be completed today. Further treatment will be based on MRI findings.
--- NOTE | 2020-01-24 11:59 | MR_ITS ---
PROCEDURE: MR LUMBAR SPINE WO CON CLINICAL INDICATION: COMPRESSION FX The COMPARISON: CR HIP2R HIP-2 VIEWS-RT from 12/01/2014 CR XR PELVIS 1-2V from 01/18/[address] LUMBAR SPINE WO CON from 01/22/2020 MR MR THORACIC SPINE WO CON from 01/24/2020 TECHNIQUE: Standard multiplanar multiecho sequences are performed without contrast. 3-D MIP and myelographic images are also rendered and reviewed FINDINGS: Chronic wedge compression changes are present at T12 with mild retropulsion of the posterior superior aspect of T12 by 3 mm. There is a complete defect in the mid aspect of the T12 vertebral body extending cephalad caudad centrally. L1-L2: Unremarkable. L2-L3: Mild bulging disc with facet and ligamentum hypertrophy. There is concavity along the superior endplate L3 but does not appear acute. L3-L4: Minimal bulging disc. No concavity also noted along the superior endplate of L4 but does not appear acute. L4-5: Mild bulging disc with facet ligamentum hypertrophy with bilateral foraminal narrowing L5-S1: Mild bulging disc. No acute fracture. No extruded herniated disc. There is some narrowing of the canal at L4-5. IMPRESSION: 1. Chronic wedge compression changes of T12. 2. Lumbar spondylosis as detailed above. 3. No extruded herniated disc or canal stenosis. Dictated by: Robert Dennis MD 01/24/2020 14:27 Robert Dennis MD in [facility] 01/24/2020 14:27
[2020-01-24 13:04] VITALS: BMI 25.1
--- NOTE | 2020-01-24 14:53 | PC.NURSE ---
Patient is resting in bed. Alert x 4, however, is often inappropriate in comments. Very paranoid regarding medication. Lung sounds are clear 2liters oxygen, singh catheter present and free of issues. Patient had a small bowel movement today and did not tell staff that she had gone. Patient has eaten meals. States she sometimes cannot tell when her bowel moves. Will check with hourly rounds. Patient transported to mri and ct today and has done well with both procedures.
[2020-01-24 16:00] VITALS: BP 158/114; PULSE 122; RESP 18; TEMP 36.6; O2SAT 94
--- NOTE | 2020-01-24 19:13 | PC.NURSE ---
report given to jose luis
[2020-01-24 20:00] VITALS: BP 164/110; PULSE 115; PULSE 125; RESP 20; TEMP 36.7; O2SAT 94
[2020-01-24 20:30] VITALS: BP 157/97
[2020-01-25 04:00] VITALS: BP 172/93; PULSE 109; RESP 18; TEMP 36.7; O2SAT 94
[2020-01-25 05:20] VITALS: BMI 24.7
--- NOTE | 2020-01-25 07:13 | PC.NURSE ---
Pt is A&O to person and place. Pt has turned self and called out for staff appropriately. Tolliver cath in place draining ylw clear urine. ADB is soft, and non-tender. Lungs are very distant with scattered rhonchi. Pt continues on O2 at 2LPM via NC. TEDS refused. HR is irregualr and tachy, although did decrease some after prn and scheduled pain meds. BP has also been elevated t/o yesterday and night. BP did decreased some also after prn and scheduled pain meds. Bed alarm active for safety. Call light within reach.
--- NOTE | 2020-01-25 07:32 | PC.NURSE ---
178/98 manual bp reported to md Greene. no new orders at this time.
[2020-01-25 07:56] VITALS: BP 178/98; PULSE 120; RESP 24; TEMP 37; O2SAT 94
--- NOTE | 2020-01-25 08:20 | P.PN_ITS ---
Internal Medicine - PN: Subj *Date: 01/25/20 *Time: 08:20 Interval history: Continues to complain of back pain but gets relief with pain medication. MRI completed yesterday and showed no new acute fractures. Exam Vital signs and Labs for Last 24 Hours: Temp Pulse Resp BP Pulse Ox 98.6 F 120 H 24 178/98 H 94 L 01/25/20 07:56 01/25/20 07:56 01/25/20 07:56 01/25/20 07:56 01/25/20 07:56 I & O for Last 24 hours: Intake & Output 01/22/20 01/23/20 01/24/20 01/25/20 11:59 11:59 11:59 11:59 Intake Total 110 / 110 710 / 710 720 / 720 Output Total 400 / 400 1050 / 1050 250 / 250 Balance -290 / -290 -340 / -340 470 / 470 Weight 129 lb 9 oz 128 lb 7 oz 126 lb 4 oz Narrative: She is resting in bed and appears in no distress at rest. She has pain with movement. Lungs are clear. Heart is irregularly irregular. Assessment and Plan (1) Compression fracture of body of thoracic vertebra Status: Acute Category: Medical Code(s): S22.000A - Wedge compression fracture of unspecified thoracic vertebra, initial encounter for closed fracture (2) Compression fracture of lumbar vertebra Status: Acute Qualifiers: Encounter type: initial encounter Lumbar vertebra fracture level: unspecified lumbar vertebra Qualified Code(s): S32.000A - Wedge compression fracture of unspecified lumbar vertebra, initial encounter for closed fracture Category: Medical Code(s): S32.000A - Wedge compression fracture of unspecified lumbar vertebra, initial encounter for closed fracture (3) Hypokalemia Status: Acute Category: Medical Code(s): E87.6 - Hypokalemia (4) Fall Status: Acute Qualifiers: Encounter type: initial encounter Qualified Code(s): W19.XXXA - Unspecified fall, initial encounter Category: Medical Code(s): W19.XXXA - Unspecified fall, initial encounter (5) Chronic atrial fibrillation Status: Chronic Category: Medical Code(s): I48.2 - Chronic atrial fibrillation (6) Chronic pain syndrome Status: Chronic Category: Medical Code(s): G89.4 - Chronic pain syndrome (7) Depression Status: Chronic Category: Medical Code(s): F32.9 - Major depressive disorder, single episode, unspecified (8) Fibromyalgia Status: Chronic Category: Medical Code(s): M79.7 - Fibromyalgia (9) Osteoarthritis Status: Chronic Category: Medical Code(s): M19.90 - Unspecified osteoarthritis, unspecified site - Assessment and plan all Dx Assessment and Plan for all problems:: As noted, her MRI showed nothing acute. She has chronic findings from old fractures. She is stable for discharge back to [place]. We will arrange for PT eval at [facility]. Continue same medications with the addition of bisoprolol for her elevated blood pressure and mild tachycardia.
--- NOTE | 2020-01-25 09:21 | SW/DCPLANNER ---
This patient will discharge back to [facility] I[facility] level of care. I have updated Doreen at [facility] regarding discharge.
[2020-01-25 09:31] LABS: Adenovirus,PCR Not Detected (NotDetected); Bordetella Pertussis Not Detected (NotDetected); Chlamydophila Pneumoniae, PCR Not Detected (NotDetected); Coronavirus 19, PCR Not Detected (NotDetected); Coronavirus 229E Not Detected (NotDetected); Coronavirus NL63 Not Detected (NotDetected); Coronavirus OC43 Not Detected (NotDetected); Coronovirus HKU1,PCR Not Detected (NotDetected); Human Metapneumovirus Not Detected (NotDetected); Influenza A, PCR Not Detected (NotDetected); Influenza AH1, 2009 Not Detected (NotDetected); Influenza AH1, PCR Not Detected (NotDetected); Influenza AH3,PCR Not Detected (NotDetected); Influenza B, PCR Not Detected (NotDetected); Mycoplasma Pneumoniae, PCR Not Detected (NotDetected); Parainfluenza 1, PCR Not Detected (NotDetected); Parainfluenza 2, PCR Not Detected (NotDetected); Parainfluenza 3, PCR Not Detected (NotDetected); Parainfluenza 4, PCR Not Detected (NotDetected); Respiratory Syncytial Virus Not Detected (NotDetected); Rhinovirus/Enterovirus Not Detected (NotDetected)
--- NOTE | 2020-01-25 10:46 | HMH.DCSUM ---
General - General Admission date:: 01/22/20 <Vargas Greene - 02/07/20 11:05> 01/22/20 <NormanMinnie - 01/25/20 10:52> Discharge date: 01/25/20 <NormanMinnie - 01/25/20 10:52> HPI HPI: Ms. Cardenas was a 64-year-old female resident of [facility] with multiple medical issues including end-stage COPD under hospice care, chronic respiratory failure, GERD, anxiety, depression, atrial fib, failure to thrive, fibromyalgia, migraine headaches, anemia, old right hip fracture in 2013 with no surgical intervention, chronic pain syndrome, and polypharmacy who presented to [facility] emergency room for evaluation after her third or fourth fall. Patient stated she did not recall why she got out of bed. She had not walked in a couple years but did try to go to the bathroom. She noted that she was started on a new medicine, Klonopin, and sort of went crazy after starting that medicine. She was also followed by psych at [facility] who changed the Xanax to Klonopin recently. In speaking with her nurse, Lesley, the medication had been held that day due to her altered mental status. But then she again fell resulting in the severe back pain. Thus, she was sent to the emergency room. Patient states she had been eating poorly as usual. She had had recent diarrhea. She stated her breathing had been good. She denied any chest pain. With evaluation in the emergency room patient had numerous imaging: CT of the cervical spine showed no acute fracture with cervical spondylosis. CT of the thoracic spine showed chronic wedge compression fractures of T12 which may be slightly progressed compared to prior imaging, mild chronic wedging of T10 with no definite acute fracture apparent. Left knee x-ray showed Depression of the lateral tibial plateau which had more of a chronic appearance. CT of the lumbar spine revealed mild wedging of L3 and L4 age and indeterminate with a bulging disc at L3-L4 and L4-5 and L5-6 S1 with narrowing of the canal as well as severe dysplastic changes of the right hip which have progressed when compared to previous exams. Left femur x-ray showed no acute findings and left knee x-ray showed depressed. Laboratory data showed a normal CBC on admission with repeat being normal as well. Blood chemistries on admission did indicate a low potassium with normal renal function. Covid IgG G and IgM were negative. Patient was given Tylenol for the pain in the emergency room and Zofran 4 mg. To note patient routinely took morphine 60 mg twice daily and scheduled [place] 35 milligrams?10 mg every 6 hours. She had also been on muscle relaxants and taking Topamax for her headaches. Patient was admitted for further evaluation and treatment with consultation with Dr. Platt, pain management, and to have MRIs of her back. <Minnie Austin - 01/25/20 10:52> Hospital Course Hospital Course: Dr. Platt was not available for inpatient consultation and this will be arranged as an outpatient. <Vargas Greene - 02/07/20 11:05> The day following admission, MRI's were completed which showed no acute fractures. Her pain was being well controlled with oral medications. By the morning of 01/25/2020, she was stable for discharge back to [facility] with plans for PT eval at the senior care and continuation of same medications with the addition of bisoprolol for her elevated blood pressure and mild tachycardia. <Minnie Austin - 01/25/20 10:52> Objective Vital signs: Temp Pulse Resp BP Pulse Ox 98.6 F 120 H 24 178/98 H 94 L 01/25/20 07:56 01/25/20 07:56 01/25/20 07:56 01/25/20 07:56 01/25/20 07:56 <Vargas Gerene - 02/07/20 11:05> Temp Pulse Resp BP Pulse Ox 98.6 F 120 H 24 178/98 H 94 L 01/25/20 07:56 01/25/20 07:56 01/25/20 07:56 01/25/20 07:56 01/25/20 07:56 <Minnie Austin - 01/25/20 10:52> DS: Diagnosis - Discharge Diagnosis (1) Compression fracture of body of thoracic v
--- NOTE | 2020-01-25 11:44 | PC.NURSE ---
report given to Geoffrey Francisco RN at [place].
[2020-02-15 09:31] LABS: POC Glucose,Bedside 153 (70-110)
== END 2020-01-25 13:31 ==
LOC: ER 18:19 → 2ND 18:51
PROVIDERS: Admitting Provider Family Medicine; Emergency Provider Physician Assistant; PCP Family Medicine; Visit Provider Family Medicine
DX: S22.080D Wedge compression fracture of T11-T12 vertebra, subsequent encounter for fracture with routine healing (principal); S32.030D Wedge compression fracture of third lumbar vertebra, subsequent encounter for fracture with routine healing; W18.11XD Fall from or off toilet without subsequent striking against object, subsequent encounter; Z91.81 History of falling; J44.9 Chronic obstructive pulmonary disease, unspecified; I48.20 Chronic atrial fibrillation, unspecified; E87.6 Hypokalemia; Z79.01 Long term (current) use of anticoagulants; Z79.52 Long term (current) use of systemic steroids; G89.4 Chronic pain syndrome; F32.9 Major depressive disorder, single episode, unspecified
CPT/HCPCS: 36415; 72125; 72128; 72131; 72146; 72148; 73552; 73562; 73590; 76376; 80048; 80053; 82962; 85025; 85610; 86328; 87581; 87633; 87798; 99284; G0378; U0003

== ENCOUNTER 2020-01-26 22:11 | Observation (INO) | payer MEDICARE, MEDICAID, SELFPAY ==
[2020-01-26 22:14] VITALS: BP 142/113; PULSE 89; RESP 14; TEMP 36.6; O2SAT 92; BMI 24.7
--- NOTE | 2020-01-26 22:17 | CT_ITS ---
PROCEDURE: CT HEAD/BRAIN WO CON CLINICAL INDICATION: ams Altered mental status, altered level of consciousness, confusion, disorientation COMPARISON: CT CT HEAD/BRAIN WO CON from 01/18/2020 TECHNIQUE: Axial images obtained. All CT scans at the facility use one or more dose reduction, viz: automated exposure control, ma/kV adjustment per patient size (including targeted exams where dose is matched to indication, i.e. head), or iterative reconstruction technique. FINDINGS: No midline shift, mass effect, intracranial hemorrhage, hydrocephalus, or extra-axial fluid collection is evident. There is generalized atrophy with hypoattenuation of the periventricular white matter consistent with microangiopathic changes.. There are encephalomalacia changes in the left occipital lobe the calvarium has an unremarkable appearance. No mastoid effusion. No sinus air-fluid level. IMPRESSION: Chronic changes, no acute intracranial findings. Dictated by: Robert Dennis MD 01/27/2020 09:56 Robert Dennis MD in [facility] 01/27/2020 09:56
--- NOTE | 2020-01-26 22:17 | XR_ITS ---
PROCEDURE: XR CHEST PORTABLE CLINICAL HISTORY: soa Shortness of air COMPARISON: CT CHW CT CHEST W/ CONTRAST from 12/18/2014 CR CXR1VP XR chest portable from 05/02/2017 CR CXR2 XR chest AP from 05/20/2018 CR XR CHEST PORTABLE from 01/18/2020 FINDINGS: The cardiomediastinal silhouette and pulmonary vascularity are within normal limits. The lungs are clear without infiltrates, suspicious nodules, or pleural effusions. There is an old right 7th rib fracture. IMPRESSION: No acute findings. Dictated by: Robert Dennis MD 01/27/2020 08:22 Robert Dennis MD in [facility] 01/27/2020 08:22
[2020-01-26 23:11] VITALS: BP 104/78; PULSE 81; RESP 16; O2SAT 98
--- NOTE | 2020-01-26 23:13 | HMH.EDAMS ---
ED Disposition Clinical Impression: Acute exacerbation of chronic obstructive airways disease Respiratory failure Qualifiers: Chronicity: acute on chronic Respiratory failure complication: hypercapnia Qualified Code(s): J96.22 - Acute and chronic respiratory failure with hypercapnia Disposition: Admitted as Observation Condition on Discharge: Good - Critical Care Critical Care Time: No Attestation: On 01/26/20, the high probability of a clinically significant, sudden or life threatening deterioration of the following system(s) required my full and direct attention, intervention and personal management. The time I documented below is in addition to time spent performing reported procedures but includes the following listed in this critical care notation. Medical Decision Making - Medical Records Medical records reviewed: Yes: I reviewed the patient's medical records. - Zoran Inquiry Pt receiving controlled substance: No Vital Signs: 01/26/20 22:14 01/26/20 23:11 01/27/20 00:28 Temperature 97.8 F Temperature Source Oral Pulse Rate [Right] 89 81 85 Respiratory Rate 14 16 16 Blood Pressure [Right Arm] 142/113 H 104/78 L 118/99 H Blood Pressure Mean [Right Arm] 122 86 105 Blood Pressure Source [Right Arm] Automatic Cuff Blood Pressure Position [Right Arm] Supine 02 Sat by Pulse Oximetry 92 L 98 99 Oxygen Delivery Method Nasal Cannula Nasal Cannula Nasal Cannula Oxygen Flow Rate (LPM) 3 3 3 01/27/20 01:00 Temperature 97.3 F L Temperature Source Rectal Pulse Rate [Right] Respiratory Rate 14 Blood Pressure [Right Arm] 128/77 Blood Pressure Mean [Right Arm] 94 Blood Pressure Source [Right Arm] Blood Pressure Position [Right Arm] 02 Sat by Pulse Oximetry 99 Oxygen Delivery Method Nasal Cannula Oxygen Flow Rate (LPM) 2 - Lab Data Lab results reviewed: Yes: I reviewed the patient's lab results. Lab Results 01/26/20 23:03: Urine Color Yellow, Urine Appearance Clear, Urine pH 6.0, Ur Specific [place] 1.020, Urine Protein Negative, Urine Glucose (UA) Negative, Urine Ketones Trace, Urine Blood Negative, Urine Nitrate Negative, Urine Bilirubin Negative, Urine Urobilinogen 0.2, Ur Leukocyte Esterase Negative, Amorphous Sediment Trace 01/26/20 23:03: WBC 11.7 H, RBC 5.15, Hgb 15.9, Hct 49.6 H, MCV 96.3, MCH 30.9, MCHC 32.1, RDW 13.1, Plt Count 373 D, MPV 8.3, Neut % (Auto) 74.1, Lymph % (Auto) 17.2, [place] % (Auto) 4.2, Eos % (Auto) 4.0, Baso % (Auto) 0.5, Neut # (Auto) 8.7 H, Lymph # (Auto) 2.0, [place] # (Auto) 0.5, Eos # (Auto) 0.5 H, Baso # (Auto) 0.1, ESR 13 01/26/20 23:03: Sodium 145, Potassium 3.5, Chloride 101, Carbon Dioxide 35 H, Anion Gap 12.5, BUN 17, Creatinine 0.80, Estimated Creat Clear 57, Estimated GFR 72, Est GFR ( Amer) 87, Glucose 167 H, Calcium 10.4 H, Total Bilirubin 0.5, AST 35, ALT 10 L, Alkaline Phosphatase 131 H, C-Reactive Protein 14.1 H, Total Protein 7.8, Albumin 4.4, Globulin 3.4 H, Albumin/Globulin Ratio 1.3 01/26/20 23:03: Lactate 1.0 01/26/20 23:03: SARS-CoV-2 IgG Ab (Rapid) Negative, SARS-CoV-2 IgM Ab (Rapid) Negative 01/26/20 23:03: Troponin I < 0.01 01/27/20 00:00: Specimen Source Right radial, O2 % 3lpm, ABG pH 7.30 L, ABG pCO2 71.7 H, ABG pO2 98.6, ABG HCO3 34.5 H, ABG Total CO2 36.7 H, ABG O2 Saturation 98, ABG Base Excess 8.1 H, Robert Test Patient unable Result diagrams: 01/26/20 23:03 01/26/20 23:03 Orders (Tests/Meds): ED MEDICATIONS Generic Name Dose Route Start Last Admin Trade Name Freq PRN Reason Stop Dose Admin Sodium Chloride 1,000 mls @ 999 mls/hr 01/26/20 23:00 01/27/20 00:21 Sod Chlor 0.9% 1000ml Bag IV 01/27/20 00:00 999 mls/hr .Q1H1M DONNELL Administration Levofloxacin/Dextrose 500 mg in 100 mls @ 100 mls/hr 01/27/20 01:15 01/27/20 01:11 Levaquin 500mg/100ml Premix IV 02/10/20 01:14 100 mls/hr Q24H DONNELL Administration Protocol Discontinued Medications Generic Name Dose Route Start Last Admin Trade Name Fredimitry Pereza
[2020-01-26 23:30] LABS: Microscopic, Urine URINE MICROSCOPIC (MICROSCOPIC)
[2020-01-26 23:32] LABS: Basophils # 0.1 K/mm3 (0-0.2); Basophils % 0.5 % (0.1-2.0); Eosinophils # 0.5 K/mm3 (0.0-0.4); Hematocrit 49.6 % (37.0-47.0); Hemoglobin 15.9 g/dL (12.2-16.2); Lymphocytes % 17.2 % (10-50); Mean Corpuscular HGB Conc 32.1 g/dL (31.8-35.4); Mean Corpuscular Hemoglobin 30.9 pg (27.0-31.2); Mean Corpuscular Volume 96.3 fl (81-99); Mean Platelet Volume 8.3 fl (7.4-10.4); Monocytes # 0.5 K/mm3 (0.1-1.0); Monocytes % 4.2 % (1.7-9.3); Neutrophils # 8.7 K/mm3 (1.8-7.8); Neutrophils % 74.1 % (37.0-80.0); Platelet Count 373 K/mm3 (142-424); Red Blood Count 5.15 M/mm3 (4.20-5.40); Red Cell Distribution Width 13.1 % (11.5-17.5); White Blood Count 11.7 K/mm3 (4.8-10.8)
[2020-01-26 23:40] LABS: Appearance,Urine CLEAR (Clear); Bilirubin,Urine Negative (Negative); Blood, Urine Negative (Negative); Color,Urine YELLOW (Yellow); Glucose,Urine (UA) Negative (Negative); Ketones,Urine TRACE (Negative); Leukocyte Esterase,Urine Negative (Negative); Nitrate,Urine Negative (Negative); Protein,Urine Negative (Negative); Urobilinogen,Urine 0.2 EU/dl (0.2)
[2020-01-26 23:41] LABS: Alanine Aminotransferase 10 U/L (12-78); Albumin Level 4.4 g/dl (3.5-5.0); Albumin/Globulin Ratio 1.3 (1.1-1.8); Alkaline Phosphatase 131 U/L (38-126); Anion Gap 12.5 mEq/L (5-15); Aspartate Amino Transferase 35 U/L (14-36); Bilirubin,Total 0.5 mg/dl (0.2-1.3); Blood Urea Nitrogen 17 mg/dl (7-17); Calcium 10.4 mg/dl (8.4-10.2); Carbon Dioxide 35 mmol/L (22.0-30.0); Chloride 101 mmol/L (98-107); Creatinine Clearance Estimated 57 mL/min (50-200); Estimated Glomerular Filt Rate 72 ml/min (>60); GFR (African American) 87 ML/MIN (>60); Globulin 3.4 g/dL (1.3-3.2); Glucose 167 mg/dl (74-100); Potassium 3.5 mmoL/L (3.5-5.1); Sodium 145 mmol/L (136-145); Total Protein,Serum 7.8 g/dl (6.3-8.2)
[2020-01-26 23:43] LABS: Amorphous Sediment,Urine Trace /lpf
[2020-01-26 23:46] LABS: C-Reactive Protein 14.1 mg/L (0-4)
[2020-01-26 23:58] LABS: Coronavirus 19 IgG Antibody Negative (Negative); Coronavirus 19 IgM Antibody Negative (Negative); Erythrocyte Sedimentation Rate 13 mm/hr (0-30)
[2020-01-27] VITALS (18 sets, daily range): BP systolic 107–156; BP diastolic 65–99; PULSE 82–111; RESP 14–25; TEMP 36.3–37; O2SAT 88–100; BMI 22.6
[2020-01-27 00:20] LABS: ABG Base Excess 8.1 mmol/L (-2.4-2.3); ABG HCO3 34.5 mmhg (22.0-26.0); ABG Oxygen Saturation 98 % (90-100); ABG PO2 98.6 mmhg (80-100); ABG TCO2 36.7 mmhg (23-27)
[2020-01-27 00:22] LABS: Allen's Test Patient Unable; Source Right Radial
[2020-01-27 00:23] LABS: Troponin I < 0.01 ng/ml (0.00-0.034)
[2020-01-27 00:23] LABS: ABG PCO2 71.7 mmhg (35.0-45.0)
--- NOTE | 2020-01-27 00:53 | PC.NURSE ---
speaking with Dr. Jones
--- NOTE | 2020-01-27 01:51 | PC.NURSE ---
patient up to floor via stretcher.
--- NOTE | 2020-01-27 03:41 | PC.NURSE ---
pt A&OX4. pt received bath upon arrival to floor. pt tolerating BIPAP well. pt c/o generalized pain medicated per MAY. VSS
[2020-01-27 04:09] LABS: Troponin I < 0.01 ng/ml (0.00-0.034)
[2020-01-27 06:17] LABS: ABG Base Excess 3.1 mmol/L (-2.4-2.3); ABG HCO3 29.6 mmhg (22.0-26.0); ABG Oxygen Saturation 99 % (90-100); ABG PH 7.29 mmol/L (7.35-7.45); ABG PO2 130.7 mmhg (80-100); ABG TCO2 31.6 mmhg (23-27)
[2020-01-27 06:19] LABS: Allen's Test Acceptable; Pressure Support 16/8; Source Left Radial
[2020-01-27 06:21] LABS: ABG PCO2 62.5 mmhg (35.0-45.0)
[2020-01-27 06:28] LABS: Chloride 107 mmol/L (98-107); Potassium 4.7 mmoL/L (3.5-5.1); Sodium 145 mmol/L (136-145)
[2020-01-27 06:31] LABS: Anion Gap 13.7 mEq/L (5-15); Blood Urea Nitrogen 20 mg/dl (7-17); Carbon Dioxide 29 mmol/L (22.0-30.0); Creatinine Clearance Estimated 52 mL/min (50-200); Estimated Glomerular Filt Rate 124 ml/min (>60); GFR (African American) 150 ML/MIN (>60)
[2020-01-27 06:32] LABS: Glucose 142 mg/dl (74-100)
[2020-01-27 07:05] LABS: Troponin I < 0.01 ng/ml (0.00-0.034)
[2020-01-27 07:28] LABS: Basophils % 0.4 % (0.1-2.0); Eosinophils % 0.3 % (0.1-12.0); Lymphocytes # 1.1 K/mm3 (0.7-4.5); Lymphocytes % 11.7 % (10-50); Mean Corpuscular HGB Conc 32.9 g/dL (31.8-35.4); Mean Corpuscular Hemoglobin 31.3 pg (27.0-31.2); Mean Corpuscular Volume 95.2 fl (81-99); Mean Platelet Volume 9.8 fl (7.4-10.4); Monocytes # 0.2 K/mm3 (0.1-1.0); Monocytes % 1.6 % (1.7-9.3); Neutrophils # 7.8 K/mm3 (1.8-7.8); Platelet Count 267 K/mm3 (142-424); Red Blood Count 4.31 M/mm3 (4.20-5.40); Red Cell Distribution Width 13.1 % (11.5-17.5); White Blood Count 9.1 K/mm3 (4.8-10.8)
[2020-01-27 07:29] LABS: MANUAL DIFFERENTIAL MANUAL DIFFERENTIAL (MANUAL DIFF)
[2020-01-27 07:34] LABS: Calcium 9.3 mg/dl (8.4-10.2)
[2020-01-27 07:40] LABS: Lymphocytes % 13 % (10-50); Neutrophils % 87 % (42-76); Total Cells Counted 100
[2020-01-27 07:41] LABS: Platelet Estimate Normal; RBC Morphology Normal
[2020-01-27 07:47] LABS: Hemoglobin 13.5 g/dL (12.2-16.2)
--- NOTE | 2020-01-27 08:38 | HMH.PHAINT ---
MEDICATION RECONCILIATION COMPLETED ON PATIENT USING DISCHARGE SUMMARY FROM PREVIOUS ADMISSION. -YOJANA HERRERA, HARLEYD
--- NOTE | 2020-01-27 08:40 | P.CONPHA_ITS ---
[facility] Pharmacy VTE Monitoring - Patient Demographics Admission date: 01/27/20 Report Date: 01/27/20 Time: 08:40 Allergies/Adverse Reactions: Patient Allergies No Known Allergies Allergy (Verified 08/29/18 09:19) Height: 1.6 m Weight: 58.06 kg Patient Problems: Current Active Problems Acute exacerbation of chronic obstructive airways disease (Acute) Respiratory failure (Acute) - VTE Risk Labs: VTE Related Lab Results Hgb 13.5 g/dL (12.2-16.2) D 01/27/20 05:40 Hct 41.0 % (37.0-47.0) 01/27/20 05:40 Plt Count 267 K/mm3 (142-424) D 01/27/20 05:40 BUN 20 mg/dl (7-17) H 01/27/20 05:40 Creatinine 0.50 mg/dl (0.52-1.04) L D 01/27/20 05:40 Estimated Creat Clear 52 mL/min (50-200) 01/27/20 05:40 Was VTE Risk Assessment Performed: Yes VTE Score: 4 VTE Risk Level: Low Risk - Prophylaxis VTE Prophylaxis Ordered?: Yes Types of VTE Prophylaxis: TEDS Knee High Location of Applied Device: Bilateral Lower Extremeties
--- NOTE | 2020-01-27 09:24 | HMH.HP ---
*Admission Date: 01/27/20 *Chief complaint: Altered mental status *History of present illness: Ms. Zhang is a 64-year-old white female who is a resident at the [facility] with a history of oxygen dependent COPD who was just discharged from [facility] 2 days ago after suffering a fall at the alf and complaining of back pain. She had multiple x-rays including an MRI of the thoracic and lumbar spine which showed chronic vertebral fractures but nothing acute. She was discharged back to the alf and continued on her same maintenance medications. On rounds at the alf last evening, the nursing staff noted she had altered mental status and she was transferred back to the ER for evaluation. Other than being hypercapnic on her blood gas, her ER work-up revealed no other cause of her altered mental status.. She has been admitted and placed on BiPAP therapy overnight. This morning she is alert but confused. She is trying to remove the BiPAP mask. [facility] History Medical History: Reports:: Anxiety, Arrhythmia, Atrial Fibrillation, Congestive Heart Failure, Chronic Obstructive Pulmonary Disease (COPD), Coronary Artery Disease, Depression, Gastroesophageal Reflux Disease(GERD), Home Oxygen, Hyperlipidemia, Hypertension, Lung Disease, Migraine, Osteoporosis Denies:: Cancer, Diabetes Mellitus Type 1, Diabetes Mellitus Type 2, Internal Pacemaker, MRSA, Seizures *Have you ever received a pneumonia vaccine?: No *Have you received a flu vaccine this season?: No Other Medical History: Reports: Anemia, Arthritis, Cataracts, Fibromyalgia, Osteoporosis Other Surgeries: Yes: No Previous Surgery, Cholecystectomy, Colonoscopy, , Hernia Repair, Hysterectomy-Total. No: Pacemaker Amputation: No Fractures: No - *Social History Last grade of school completed: High school graduate Smoking Status: Former smoker Tobacco Type: cigarettes # Packs/Day (cigarettes): 0 #Yrs smoked (if former smoker): 40 Alcohol Intake: never Alcohol Intake Frequency:: other Substance Use Type: marijuana *Occupational Status:: retired Housing: alf Household Members: caregiver *Travel in the last 8 weeks: None - Psychiatric History Pschychiatric History:: Reports:: Anxiety, Depression Family Hx:: Unable to obtain Review of Systems - Review of Systems Review of systems:: unable to obtain (Due to confusion) - *Neurologic Denies seizure-like activity Meds Home Medications Medication Instructions Recorded Confirmed Type Duloxetine HCl [Cymbalta] 120 mg PO DAILY 04/13/17 01/27/20 History Rivaroxaban [Xarelto 20mg Tablet*] 20 mg PO QPMWM 04/13/17 01/27/20 History Baclofen 20 mg PO BID 07/06/17 01/27/20 History Docusate Sodium [Colace 250mg 250 mg PO BID 08/02/17 01/27/20 History capsule] Potassium Chloride [Klor-Con 10mEq 10 meq PO DAILY 08/02/17 01/27/20 History tab] Torsemide [Demadex 20mg tablet] 20 mg PO DAILY 08/02/17 01/27/20 History ondansetron HCL [Zofran 4mg Tab*] 4 mg PO Q4-6H PRN 08/02/17 01/27/20 History morphine 30 mg capsule,extended 30 mg PO BID cap 08/02/18 01/27/20 History release 24 hr multiphase topiramate 25 mg tablet 150 mg PO HS tab 08/02/18 01/27/20 History Fluticasone/Vilanterol [Breo 1 puff IH DAILY 01/22/20 01/27/20 History Ellipta 100-25 Mcg INH] Folic Acid 0.4 mg PO DAILY 01/22/20 01/27/20 History Loratadine [Claritin 10mg 10 mg PO DAILY 01/22/20 01/27/20 History Tablet] hydrOXYzine HCL [Hydroxyzine HCl] 25 mg PO HS 01/22/20 01/27/20 History Acetaminophen [Acetaminophen Extra 500 mg PO Q6 PRN 01/23/20 01/27/20 History Strength] Albuterol Sulfate [Ventolin HFA 2 puffs IH Q4-6H PRN 01/23/20 01/27/20 History Inhaler] Ascorbate Calcium [Vitamin C] 500 mg PO DAILY 01/23/20 01/27/20 History Bisacodyl [Bisacodyl 10mg Supp] 10 mg RC DAILY PRN 01/23/20 01/27/20 History Cyanocobalamin (Vitamin B-12) 100 mcg PO DAILY 01/23/20 01/27/20 History [Vitamin B-1
[2020-01-27 10:14] LABS: Adenovirus,PCR Not Detected (NotDetected); Coronavirus 229E Not Detected (NotDetected); Coronavirus NL63 Not Detected (NotDetected); Coronavirus OC43 Not Detected (NotDetected); Coronovirus HKU1,PCR Not Detected (NotDetected); Human Metapneumovirus Not Detected (NotDetected); Influenza A, PCR Not Detected (NotDetected); Influenza AH1, 2009 Not Detected (NotDetected); Influenza AH1, PCR Not Detected (NotDetected); Influenza AH3,PCR Not Detected (NotDetected); Influenza B, PCR Not Detected (NotDetected); Parainfluenza 1, PCR Not Detected (NotDetected); Parainfluenza 2, PCR Not Detected (NotDetected); Rhinovirus/Enterovirus Not Detected (NotDetected)
[2020-01-27 10:15] LABS: Bordetella Pertussis Not Detected (NotDetected); Chlamydophila Pneumoniae, PCR Not Detected (NotDetected); Mycoplasma Pneumoniae, PCR Not Detected (NotDetected); Parainfluenza 3, PCR Not Detected (NotDetected); Parainfluenza 4, PCR Not Detected (NotDetected); Respiratory Syncytial Virus Not Detected (NotDetected)
--- NOTE | 2020-01-27 14:44 | PC.NURSE ---
A&OX4. PT HAS TOLERATED BIPAP WELL THROUGHOUT SHIFT. RESPIRATIONS REGULAR AND UNLABORED. LUNG SOUNDS DIMINISHED THROUGHOUT. NONPITTING EDEMA NOTED TO LLE. +2 PULSES NOTED THROUGHOUT. 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 SOFT NONTENDER ABDOMEN NOTED. ACTIVE BOWEL SOUNDS HEARD IN ALL 4 QUADRANTS. NO BM REPORTED. PT RECEIVED MIRALAX ONCE THIS SHIFT BECAUSE SHE REPORTED IT BEING SEVERAL DAYS SINCE HAVING A BM. MORFIN CATHETER IN PLACE WITH CLEAR YELLOW URINE NOTED IN DRAINAGE BAG. NO KINKS NOTED. PT REPORTED PAIN ONCE IN HER BACK AND RECEIVED TYLENOL. NS INFUSING AT 50ML/HR. PT HAS REMAINED NPO. PT IS CURRENTLY LYING IN BED WITH CALL LIGHT WITHIN REACH. BED IN LOWEST POSITION. VSS. WILL CONTINUE TO MONITOR.
[2020-01-28] VITALS (15 sets, daily range): BP systolic 136–180; BP diastolic 77–104; PULSE 88–127; RESP 16–23; TEMP 36.6–37.1; O2SAT 95–100; BMI 24.1
--- NOTE | 2020-01-28 04:54 | PC.NURSE ---
Pt is A&O x4, with some small episodes of confusion. Pt had x1 episode of anxiety this shift, PRN anxiety meds administered per MAY. Pt has c/o of lower back pain t.o the night and was given PRN pain meds per MAY. BL lung sounds remain diminished t/o. Pt continues to tolerate bipap appropriately. Active bowel sounds in all 4 quads. No BM noted this shift. No other complaints or acute changes at this time. Will continue to monitor.
--- NOTE | 2020-01-28 08:32 | PC.NURSE ---
Called dietary to get pt a breakfast tray.
--- NOTE | 2020-01-28 08:44 | P.PN_ITS ---
Internal Medicine - PN: Subj *Date: 01/28/20 *Time: 08:44 Interval history: No new problems noted. She is tolerating the BiPAP well. O2 sats have been good. Unable to obtain ABG this morning. Exam Vital signs and Labs for Last 24 Hours: Temp Pulse Resp BP Pulse Ox 98.2 F 111 H 18 159/81 H 100 01/28/20 08:00 01/28/20 08:00 01/28/20 08:00 01/28/20 08:00 01/28/20 08:00 Laboratory Results - last 24 hr 01/27/20 10:00: Chlamy pneumoniae PCR Not detected, Adenovirus (PCR) Not detected, B. pertussis DNA (PCR) Not detected, Coronavirus OC43 (PCR) Not detected, Coronavirus HKU1 (PCR) Not detected, Coronavirus 229E (PCR) Not detected, Coronavirus NL63 (PCR) Not detected, Human Metapneumovir PCR Not detected, Influenza A (H1) PCR Not detected, Influ A (H1N1/09) PCR Not detected, Influenza A (H3) PCR Not detected, Influenza Type A (PCR) Not detected, Influenza Type B (PCR) Not detected, M. pneumoniae (PCR) Not detected, Parainfluenza 1 (PCR) Not detected, Parainfluenza 2 (PCR) Not detected, Parain fluenza 3 (PCR) Not detected, Parainfluenza 4 (PCR) Not detected, RSV (PCR) Not detected, Entero/Rhino (PCR) Not detected I & O for Last 24 hours: Intake & Output 01/25/20 01/26/20 01/27/20 01/28/20 11:59 11:59 11:59 10:59 Intake Total 1150 / 1150 1492 / 1492 Output Total 500 / 500 500 / 500 Balance 650 / 650 992 / 992 Weight 128 lb 0.006 oz 136 lb 1.976 oz Narrative: She is alert. Color is improved. No respiratory distress. Answers questions appropriately. Lungs show diminished breath sounds but otherwise clear. Heart is irregularly irregular. Extremities no edema. PCR respiratory panel is negative. Assessment and Plan (1) Hypercapnic respiratory failure Status: Acute Category: Medical Code(s): J96.92 - Respiratory failure, unspecified with hypercapnia (2) Acute exacerbation of chronic obstructive airways disease Status: Acute Category: Medical Code(s): J44.1 - Chronic obstructive pulmonary disease with (acute) exacerbation (3) Chronic atrial fibrillation Status: Chronic Category: Medical Code(s): I48.2 - Chronic atrial fibrillation (4) Chronic pain syndrome Status: Chronic Category: Medical Code(s): G89.4 - Chronic pain syndrome (5) Depression Status: Chronic Category: Medical Code(s): F32.9 - Major depressive disorder, single episode, unspecified (6) HTN (hypertension) Status: Chronic Category: Medical Code(s): I10 - Essential (primary) hypertension - Assessment and plan all Dx Assessment and Plan for all problems:: Discontinue BiPAP and placed on 2 L of nasal oxygen. Plan to repeat ABG in 3 to 4 hours. If she continues to show CO2 retention, will give trial of Vapotherm.
--- NOTE | 2020-01-28 12:00 | PC.NURSE ---
RT was unable to obtain ABG. They said someone will be coming in at 4pm and they will obtain it then.
--- NOTE | 2020-01-28 18:12 | PC.NURSE ---
A&OX4. PT HAS TOLERATED 2L NC WELL THROUGHOUT SHIFT. RESPIRATIONS REGULAR AND UNLABORED. LUNG SOUNDS DIMINISHED THROUGHOUT. NONPITTING EDEMA NOTED TO LLE. HAND OILSEED MEAT PRESSER EQUAL. +2 PULSES NOTED THROUGHOUT. MORFIN CATHETER IN PLACE W CLEAR YELLOW URINE NOTED. NO KINKS NOTED. PT HAS HAD 4 LARGE SOFT BM THUS FAR. ACTIVE BOWEL SOUNDS HEARD IN ALL 4 QUADRANTS. SOFT AND NONTENDER ABDOMEN. PATIENT RECEIVED TYELNOL TWICE FOR PAIN IN BACK. PT REPORTED DIZZINESS ONCE AND MD PROJECT DEVELOPMENT MANAGER WAS NOTIFIED. BISOPROLOL WAS ORDERED AND GIVEN. PT TOLERATED WELL. BP IS TRENDING DOWN. PT HAS BEEN ANXIOUS ONCE THIS SHIFT AND RECEIVED ATIVAN. PT TOLERATED WELL. PT IS CURRENTLY SITTING IN BED WITH CALL LIGHT WITHIN REACH. BED IN LOWEST POSITION. VSS. WILL CONTINUE TO MONITOR.
[2020-01-28 18:51] LABS: ABG Base Excess 0.8 mmol/L (-2.4-2.3); ABG HCO3 25.3 mmhg (22.0-26.0); ABG Oxygen Saturation 97 % (90-100); ABG PCO2 39.7 mmhg (35.0-45.0); ABG PH 7.42 mmol/L (7.35-7.45); ABG PO2 83.1 mmhg (80-100); ABG TCO2 26.5 mmhg (23-27)
[2020-01-28 18:52] LABS: Allen's Test Y; Oxygen 2 %; Source L/R
[2020-01-29] VITALS: PULSE 100
--- NOTE | 2020-01-29 02:46 | PC.NURSE ---
Pt has slept intermittently this shift. Behavior has been labile with periods of being appropriate and cooperative followed by periods of belligerence and speaking sharply with staff. Lung sounds remain unchanged with oxygen at 2L/min via nc. Pt remains oriented to person and only.
[2020-01-29 04:00] VITALS: BP 140/96; PULSE 100; PULSE 101; RESP 18; TEMP 37; O2SAT 96
[2020-01-29 05:00] VITALS: BMI 22.7
[2020-01-29 06:30] VITALS: PULSE 95; PULSE 98; O2SAT 98
[2020-01-29 08:00] VITALS: PULSE 120; O2SAT 97
[2020-01-29 09:00] VITALS: BP 193/109; PULSE 100; RESP 18; TEMP 36.9; O2SAT 97
--- NOTE | 2020-01-29 09:03 | SW/DCPLANNER ---
CALLED [facility] AND LEFT A MESSAGE WITH [facility] THAT THIS PATIENT WOULD BE RETURNING BACK TO HER LONGTERM BED TODAY PER DR RILEY AND NURSING WILL BE CALLING TO GIVE REPORT...
--- NOTE | 2020-01-29 09:03 | HMH.ACPN2 ---
<Chelo Wesley - Last Filed: 01/29/20 09:03> Internal Medicine - PN: Subj *Date: 01/29/20 *Time: 09:03 Interval history: Patient states she is feeling fine today. She denies chest pain and shortness of breath. She remains on nasal oxygen. She does not eat very much at any time. She states her back does still hurt. She has a Tolliver catheter. Exam Vital signs and Labs for Last 24 Hours: Temp Pulse Resp BP Pulse Ox 98.6 F 98 H 18 140/96 H 98 01/29/20 04:00 01/29/20 06:30 01/29/20 04:00 01/29/20 04:00 01/29/20 06:30 Laboratory Results - last 24 hr 01/28/20 18:50: Specimen Source L/r, O2 % 2, ABG pH 7.42, ABG pCO2 39.7, ABG pO2 83.1, ABG HCO3 25.3, ABG Total CO2 26.5, ABG O2 Saturation 97, ABG Base Excess 0.8, Robert Test Y I & O for Last 24 hours: Intake & Output 01/26/20 01/27/20 01/28/20 01/29/20 12:59 12:59 11:59 11:59 Intake Total 1130 / 1130 Output Total 1800 / 1800 Balance -670 / -670 Weight 128 lb 4 oz Microbiology Reports for the Last 24 Hours: Microbiology 01/26/20 23:03 Blood Blood Culture - Preliminary NO GROWTH AFTER 48 HOURS 01/26/20 23:03 Blood Blood Culture - Preliminary NO GROWTH AFTER 48 HOURS - Constitutional no acute distress Comments: Is able to assist with exam by sitting up in the bed. - *Routine Respiratory Exam Present: diminished air movement (Posteriorly but sounds clear) - *Routine Cardiovascular Exam Present: RRR (100/min) - *Routine Abdominal Exam Present: soft, normoactive bowel sounds. Absent: tenderness - *Routine Extremities Exam Absent: edema Comments: Moves lower extremities well. - *Routine Neurological Exam Present: alert. Absent: oriented X3 Does not know really where she is. Assessment and Plan (1) Hypercapnic respiratory failure Status: Acute Category: Medical Code(s): J96.92 - Respiratory failure, unspecified with hypercapnia (2) Acute exacerbation of chronic obstructive airways disease Status: Acute Category: Medical Code(s): J44.1 - Chronic obstructive pulmonary disease with (acute) exacerbation (3) Chronic atrial fibrillation Status: Chronic Category: Medical Code(s): I48.2 - Chronic atrial fibrillation (4) Chronic pain syndrome Status: Chronic Category: Medical Code(s): G89.4 - Chronic pain syndrome (5) Depression Status: Chronic Category: Medical Code(s): F32.9 - Major depressive disorder, single episode, unspecified (6) HTN (hypertension) Status: Chronic Category: Medical Code(s): I10 - Essential (primary) hypertension - Assessment and plan all Dx Assessment and Plan for all problems:: Patient is stable. ABGs yesterday were normal with a pH of 7.42 PCO2 of 39.7 PO2 of 83.1 and a bicarb of 25.3. We will discharge her back to [facility] with follow-up with there. <Vargas Greene - Last Filed: 01/29/20 20:30> Internal Medicine - PN: Subj *Date: 01/29/20 *Time: 20:28 Exam Vital signs and Labs for Last 24 Hours: Temp Pulse Resp BP Pulse Ox 98.4 F 100 H 18 188/100 H 97 01/29/20 09:00 01/29/20 09:00 01/29/20 09:00 01/29/20 09:05 01/29/20 09:00 I & O for Last 24 hours: Intake & Output 01/27/20 01/28/20 01/29/20 01/30/20 12:59 11:59 11:59 11:59 Intake Total 1490 / 1490 Output Total 2200 / 2200 Balance -710 / -710 Weight 128 lb 4 oz Microbiology Reports for the Last 24 Hours: Microbiology 01/26/20 23:03 Blood Blood Culture - Preliminary NO GROWTH AFTER 48 HOURS 01/26/20 23:03 Blood Blood Culture - Preliminary NO GROWTH AFTER 48 HOURS Assessment and Plan (1) Hypercapnic respiratory failure Status: Acute Category: Medical Code(s): J96.92 - Respiratory failure, unspecified with hypercapnia (2) Acute exacerbation of chronic obstructive airway
[2020-01-29 09:05] VITALS: BP 188/100
--- NOTE | 2020-01-29 09:08 | HMH.DCSUM ---
General - General Admission date:: 01/27/20 <Vargas Greene - 02/07/20 11:09> 01/27/20 <MaryjaneChelo - 01/29/20 09:25> Discharge date: 01/29/20 <MaryjaneChelo - 01/29/20 09:25> HPI HPI: Ms. Zhang is a 64-year-old white female who is a resident at the [facility] with a history of oxygen dependent COPD who was just discharged from [facility] 2 days ago after suffering a fall at the skilled nursing and complaining of back pain. She had multiple x-rays including an MRI of the thoracic and lumbar spine which showed chronic vertebral fractures but nothing acute. She was discharged back to the skilled nursing and continued on her same maintenance medications. On rounds at the skilled nursing last evening, the nursing staff noted she had altered mental status and she was transferred back to the ER for evaluation. Other than being hypercapnic on her blood gas, her ER work-up revealed no other cause of her altered mental status.. She has been admitted and placed on BiPAP therapy overnight. The following morning she was alert but confused. She was trying to remove the BiPAP mask. <MaryjaneChelo - 01/29/20 09:25> Hospital Course Hospital Course: She was started on Levaquin IV on admission. With initial exam patient was alert but confused. Hypercapnia improved slightly with first exam with use of BiPAP overnight. She appeared in no respiratory distress. White blood cell count was slightly elevated on admission but was normal the following morning. Urine was clear. Noncontrast head CT was unremarkable. Upper respiratory panel was negative as was Covid IgG and IgM. On 01/28/2020 she was placed on 2 L of nasal oxygen. Repeat ABGs were normal. She had no respiratory issues and O2 sats were satisfactory on the nasal oxygen. She was on scheduled DuoNebs 3 times daily with her normal pain medicines and Solu-Medrol 40 mg IV every 8 hours. She was given Ativan IV for agitation. On 01/29/2020 patient remained stable and was discharged back to [facility] for ongoing care. She will continue with her DuoNeb's and regular pain medicines. Due to her back pain we will continue her Tolliver catheter for an additional week. Medications as per medication reconciliation sheet. <Rochelle Wesleyhy - 01/29/20 09:25> Objective Vital signs: Temp Pulse Resp BP Pulse Ox 98.4 F 100 H 18 188/100 H 97 01/29/20 09:00 01/29/20 09:00 01/29/20 09:00 01/29/20 09:05 01/29/20 09:00 <Vargas Greene - 02/07/20 11:09> Temp Pulse Resp BP Pulse Ox 98.6 F 98 H 18 140/96 H 98 01/29/20 04:00 01/29/20 06:30 01/29/20 04:00 01/29/20 04:00 01/29/20 06:30 <MaryjaneChelo - 01/29/20 09:25> Narrative: Exam Vital signs and Labs for Last 24 Hours: Temp Pulse Resp BP Pulse Ox 98.6 F 98 H 18 140/96 H 98 01/29/20 04:00 01/29/20 06:30 01/29/20 04:00 01/29/20 04:00 01/29/20 06:30 Laboratory Results - last 24 hr 01/28/20 18:50: Specimen Source L/r, O2 % 2, ABG pH 7.42, ABG pCO2 39.7, ABG pO2 83.1, ABG HCO3 25.3, ABG Total CO2 26.5, ABG O2 Saturation 97, ABG Base Excess 0.8, Robert Test Y I & O for Last 24 hours: Intake & Output 01/26/20 01/27/20 01/28/20 01/29/20 12:59 12:59 11:59 11:59 Intake Total 1130 / 1130 Output Total 1800 / 1800 Balance -670 / -670 Weight 128 lb 4 oz Microbiology Reports for the Last 24 Hours: Microbiology 01/26/20 23:03 Blood Blood Culture - Preliminary NO GROWTH AFTER 48 HOURS 01/26/20 23:03 Blood Blood Culture - Preliminary NO GROWTH AFTER 48 HOURS - Constitutional no acute distress Comments: Is able to assist with exam by sitting up in the bed. - *Routine Respiratory Exam Present: diminished air movement (Posteriorly but sounds clear) - *Routine Cardiovascular Exam Present: RRR (100/min) - *Routine Abdominal Exam Pre
--- NOTE | 2020-01-29 09:28 | PC.NURSE ---
RN notified of elevated BP.
== END 2020-01-29 11:49 ==
LOC: ER 22:21 → 2ND 01-27 01:24
PROVIDERS: Admitting Provider Family Medicine; Emergency Provider Emergency Medicine; PCP Family Medicine; Visit Provider Family Medicine
DX: J96.02 Acute respiratory failure with hypercapnia (principal); J44.1 Chronic obstructive pulmonary disease with (acute) exacerbation; Z99.81 Dependence on supplemental oxygen; I11.0 Hypertensive heart disease with heart failure; I50.9 Heart failure, unspecified; F32.9 Major depressive disorder, single episode, unspecified; G89.4 Chronic pain syndrome; S22.080D Wedge compression fracture of T11-T12 vertebra, subsequent encounter for fracture with routine healing; S32.030D Wedge compression fracture of third lumbar vertebra, subsequent encounter for fracture with routine healing; I48.20 Chronic atrial fibrillation, unspecified; I25.10 Atherosclerotic heart disease of native coronary artery without angina pectoris; Z87.891 Personal history of nicotine dependence; Z91.81 History of falling; Z79.52 Long term (current) use of systemic steroids; Z79.01 Long term (current) use of anticoagulants; Z79.899 Other long term (current) drug therapy
CPT/HCPCS: 36415; 70450; 71045; 80048; 80053; 81001; 82803; 83605; 84484; 85007; 85025; 85651; 86140; 86328; 87040; 87486; 87581; 87633; 87798; 94640; 94660; 96365; 96367; 96375; 99285; G0378; J1956

== ENCOUNTER → 2020-03-13 23:37 | Outpatient (CLI) | payer MEDICARE, MEDICAID, SELFPAY | PROVIDERS: Visit Provider Family Medicine | DX: Z03.818 Encounter for observation for suspected exposure to other biological agents ruled out (principal) | CPT/HCPCS: U0003 ==

== ENCOUNTER → 2020-03-14 23:43 | Outpatient (CLI) | payer MEDICARE, MEDICAID, SELFPAY | LOC: LAB 03-15 09:19 → LAB.DROPOF 03-15 09:20 | PROVIDERS: Visit Provider Family Medicine | DX: Z03.818 Encounter for observation for suspected exposure to other biological agents ruled out (principal) | CPT/HCPCS: U0003 ==

== ENCOUNTER 2020-03-18 23:12 | Observation (INO) | payer MEDICARE, MEDICAID, SELFPAY ==
[2020-03-18 23:12] VITALS: BP 103/83; PULSE 111; RESP 16; TEMP 36.8; O2SAT 96; BMI 21.6
--- NOTE | 2020-03-18 23:27 | XR_ITS ---
PROCEDURE: XR PELVIS 1-2V CLINICAL INDICATION: fall Posttraumatic pain COMPARISON: CR HIP2R HIP-2 VIEWS-RT from 12/01/2014 CR HIP2L HIP-2 VIEWS-LT from 12/01/2014 CR HIPCMLT XR hip LT 2-3V w/pelvis from 05/20/2018 CR XR PELVIS 1-2V from 01/18/2020 TECHNIQUE: XR Pelvis AP View FINDINGS: There remains severe chronic remodeling in the right hip with partial femoral head resorption at expansion of the right acetabulum unchanged. There is associated acetabular protrusion no. There are old inferior pubic rami fractures and right superior pubic ramus fracture. No acute fracture is identified.. IMPRESSION: 1. No acute fracture. 2. 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 No change old bilateral pubic rami fractures Dictated by: Robert Dennis MD 03/19/2020 05:26 Robert Dennis MD in [place] 03/19/2020 05:26
--- NOTE | 2020-03-18 23:27 | XR_ITS ---
PROCEDURE: XR ANKLE RT MIN 3V CLINICAL INDICATION: fall. rt ankle pain Posttraumatic pain COMPARISON: No exams were available for comparison FINDINGS: There are comminuted mildly impacted distal tib fib fractures with mild lateral angulation of the distal fracture fragment. No significant displacement. The ankle mortise appears intact. The tib fib fractures are approximately 4-5 cm proximal to the level of ankle joint. There is generalized osteopenia. IMPRESSION: Nondisplaced comminuted mildly impacted distal tib fib fracture Dictated by: Robert Dennis MD 03/19/2020 05:28 Robert Dennis MD in [facility] 03/19/2020 05:28
--- NOTE | 2020-03-18 23:27 | XR_ITS ---
PROCEDURE: XR CHEST AP CLINICAL HISTORY: fall Posttraumatic pain, fall with injury and pain COMPARISON: CT CHW CT CHEST W/ CONTRAST from 12/18/2014 CR CXR2 XR chest AP from 05/20/2018 CR XR CHEST PORTABLE from 01/18/2020 CR XR CHEST PORTABLE from 01/26/2020 FINDINGS: The cardiomediastinal silhouette and pulmonary vascularity are within normal limits. Lungs are clear. Old bilateral rib fractures. IMPRESSION: No acute findings. Dictated by: Robert Dennis MD 03/19/2020 05:22 Robert Dennis MD in [facility] 03/19/2020 05:22
[2020-03-18 23:32] VITALS: BP 147/110; PULSE 118; RESP 19; O2SAT 97
--- NOTE | 2020-03-18 23:58 | XR_ITS ---
PROCEDURE: XR TIBIA FIBULA RT 2V CLINICAL INDICATION: fall. broken ankle Pain COMPARISON: CR XR TIBIA FIBULA LT 2V from 01/22/2020 CR XR ANKLE RT MIN 3V from 03/18/2020 FINDINGS: There is generalized osteopenia. There is a comminuted nondisplaced minimally impacted fracture involving the distal shaft of the tibia at the fibula approximately 4.7 cm proximal to the ankle joint. There is minimal lateral angulation of the distal fracture fragments. IMPRESSION: Nondisplaced distal tib fib fractures Dictated by: Robert Dennis MD 03/19/2020 05:21 Robert Dennis MD in [facility] 03/19/2020 05:21
[2020-03-19] VITALS (14 sets, daily range): BP systolic 105–165; BP diastolic 79–110; PULSE 76–115; RESP 15–24; TEMP 36.6–37; O2SAT 94–99; BMI 22.9
--- NOTE | 2020-03-19 00:12 | HMH.EDFALL ---
ED Disposition Clinical Impression: Chronic atrial fibrillation, Hypokalemia Fracture of lower leg, closed Qualifiers: Encounter type: initial encounter Laterality: right Qualified Code(s): S82.91XA - Unspecified fracture of right lower leg, initial encounter for closed fracture Fall Qualifiers: Encounter type: initial encounter Qualified Code(s): W19.XXXA - Unspecified fall, initial encounter Disposition: Admitted as Observation Condition on Discharge: Fair Referrals: PCP,No [Primary Care Provider] - - Critical Care Critical Care Time: No Attestation: On 03/18/20, the high probability of a clinically significant, sudden or life threatening deterioration of the following system(s) required my full and direct attention, intervention and personal management. The time I documented below is in addition to time spent performing reported procedures but includes the following listed in this critical care notation. Medical Decision Making - Medical Records Medical records reviewed: Yes: I reviewed the patient's medical records. - Zoran Inquiry Pt receiving controlled substance: No Vital Signs: 03/18/20 23:12 03/18/20 23:32 03/19/20 00:42 Temperature 98.3 F Temperature Source Oral Pulse Rate [Left Radial] 111 H 118 H 76 Respiratory Rate 16 19 16 Blood Pressure [Right Arm] 103/83 L 147/110 H 146/110 H Blood Pressure Mean [Right Arm] 89 122 122 Blood Pressure Source [Right Arm] Automatic Cuff Automatic Cuff Blood Pressure Position [Right Arm] Sitting Supine Supine 02 Sat by Pulse Oximetry 96 97 99 Oxygen Delivery Method Room Air Nasal Cannula Room Air Oxygen Flow Rate (LPM) 2 03/19/20 01:30 03/19/20 02:00 03/19/20 02:30 Temperature Temperature Source Pulse Rate [Left Radial] 112 H 112 H 114 H Respiratory Rate 19 18 15 Blood Pressure [Right Arm] 152/93 H 160/94 H 155/102 H Blood Pressure Mean [Right Arm] 112 116 119 Blood Pressure Source [Right Arm] Automatic Cuff Blood Pressure Position [Right Arm] Supine Supine Supine 02 Sat by Pulse Oximetry 99 96 97 Oxygen Delivery Method Nasal Cannula Nasal Cannula Nasal Cannula Oxygen Flow Rate (LPM) 2 2 2 - Lab Data Lab results reviewed: Yes: I reviewed the patient's lab results. Lab Results 03/19/20 01:10: WBC 12.0 H, RBC 4.53, Hgb 13.3, Hct 43.2, MCV 95.5, MCH 29.4, MCHC 30.8 L, RDW 13.1, Plt Count 280, MPV 8.2, Neut % (Auto) 81.1 H, Lymph % (Auto) 14.5, Shackelford % (Auto) 2.9, Eos % (Auto) 1.1, Baso % (Auto) 0.4, Neut # (Auto) 9.7 H, Lymph # (Auto) 1.7, Shackelford # (Auto) 0.4, Eos # (Auto) 0.1, Baso # (Auto) 0.1 03/19/20 01:10: Sodium 135 L, Potassium 2.8 L*, Chloride 93 L, Carbon Dioxide 30, Anion Gap 14.8, BUN 11, Creatinine 0.60, Estimated Creat Clear 53, Estimated GFR 101, Est GFR ( Amer) 122, Glucose 116 H, Calcium 9.7, Total Bilirubin 0.6, AST 31, ALT 10 L, Alkaline Phosphatase 88, Troponin I < 0.01, Total Protein 6.5, Albumin 3.7, Globulin 2.8, Albumin/Globulin Ratio 1.3 Result diagrams: 03/19/20 01:10 03/19/20 01:10 Orders (Tests/Meds): ED MEDICATIONS Generic Name Dose Route Start Last Admin Trade Name Freq PRN Reason Stop Dose Admin Sodium Chloride 1,000 mls @ 999 mls/hr 03/19/20 00:45 03/19/20 00:40 Sod Chlor 0.9% 1000ml Bag IV 03/19/20 01:45 999 mls/hr .Q1H1M DONNELL Administration Discontinued Medications Generic Name Dose Route Start Last Admin Trade Name Freq PRN Reason Stop Dose Admin Morphine Sulfate 2 mg 03/19/20 00:39 03/19/20 00:40 Morphine 2mg/Ml Syringe IV 03/19/20 00:40 2 mg ONCE ONE Administration Morphine Sulfate 2 mg 03/19/20 02:14 03/19/20 02:16 Morphine 2mg/Ml Syringe IV 03/19/20 02:15 2 mg ONCE ONE Administration Ondansetron HCl 4 mg 03/19/20 00:39 03/19/20 00:40 Ondansetron 4mg/2ml Vial IV 03/19/20 00:40 4 mg ONCE ONE Administration Potassium Chloride 40 meq 03/19/20 01:48 03/19/20 02:06 Potassium Chloride 20meq Tab PO 03/19/20 01:49 40 meq ONCE O
--- NOTE | 2020-03-19 01:02 | PC.NURSE ---
lab at bedside to obtain blood for ordered labs
[2020-03-19 01:19] LABS: Basophils # 0.1 K/mm3 (0-0.2); Basophils % 0.4 % (0.1-2.0); Eosinophils # 0.1 K/mm3 (0.0-0.4); Eosinophils % 1.1 % (0.1-12.0); Hematocrit 43.2 % (37.0-47.0); Hemoglobin 13.3 g/dL (12.2-16.2); Lymphocytes # 1.7 K/mm3 (0.7-4.5); Lymphocytes % 14.5 % (10-50); Mean Corpuscular HGB Conc 30.8 g/dL (31.8-35.4); Mean Corpuscular Hemoglobin 29.4 pg (27.0-31.2); Mean Corpuscular Volume 95.5 fl (81-99); Mean Platelet Volume 8.2 fl (7.4-10.4); Monocytes # 0.4 K/mm3 (0.1-1.0); Monocytes % 2.9 % (1.7-9.3); Neutrophils # 9.7 K/mm3 (1.8-7.8); Neutrophils % 81.1 % (37.0-80.0); Platelet Count 280 K/mm3 (142-424); Red Blood Count 4.53 M/mm3 (4.20-5.40); Red Cell Distribution Width 13.1 % (11.5-17.5)
[2020-03-19 01:46] LABS: Alanine Aminotransferase 10 U/L (12-78); Albumin Level 3.7 g/dl (3.5-5.0); Albumin/Globulin Ratio 1.3 (1.1-1.8); Alkaline Phosphatase 88 U/L (38-126); Anion Gap 14.8 mEq/L (5-15); Aspartate Amino Transferase 31 U/L (14-36); Bilirubin,Total 0.6 mg/dl (0.2-1.3); Blood Urea Nitrogen 11 mg/dl (7-17); Calcium 9.7 mg/dl (8.4-10.2); Carbon Dioxide 30 mmol/L (22.0-30.0); Chloride 93 mmol/L (98-107); Creatinine Clearance Estimated 53 mL/min (50-200); Estimated Glomerular Filt Rate 101 ml/min (>60); GFR (African American) 122 ML/MIN (>60); Globulin 2.8 g/dL (1.3-3.2); Glucose 116 mg/dl (74-100); Sodium 135 mmol/L (136-145); Total Protein,Serum 6.5 g/dl (6.3-8.2)
[2020-03-19 01:47] LABS: Potassium 2.8 mmoL/L (3.5-5.1)
--- NOTE | 2020-03-19 01:48 | PC.NURSE ---
notified of critical potassium
[2020-03-19 02:20] LABS: Troponin I < 0.01 ng/ml (0.00-0.034)
--- NOTE | 2020-03-19 02:33 | ECG_ITS ---
APPROVED REPORT Exam: Resting ECG HR:112 bpm ECG Measurements Heart Rate 112 AXES IN 142 P 90 QRSd 74 QRS -12 QT 352 T 80 QTc 480 Conclusion Sinus tachycardia with fusion complexes Low voltage QRS Old inferior and anterior changes Abnormal ECG Electronically signed by : Michael Beckman, 03/19/2020 17:27:08
--- NOTE | 2020-03-19 02:54 | PC.NURSE ---
on phone with dr davila
--- NOTE | 2020-03-19 03:09 | PC.NURSE ---
[facility]
--- NOTE | 2020-03-19 03:10 | PC.NURSE ---
[facility] [place] [facility] GET [facility]
[2020-03-19 04:04] LABS: Coronavirus 19 IgG Antibody Negative (Negative); Coronavirus 19 IgM Antibody Negative (Negative)
[2020-03-19 04:26] LABS: Troponin I < 0.01 ng/ml (0.00-0.034)
--- NOTE | 2020-03-19 04:37 | PC.NURSE ---
CALLED [facility] FOR NURSE REPORT AGAIN
--- NOTE | 2020-03-19 05:04 | PC.NURSE ---
PT ARRIVED TO THE FLOOR VIA STRETCHER AT [id number]
[2020-03-19 05:15] LABS: Basophils # 0.1 K/mm3 (0-0.2); Basophils % 0.7 % (0.1-2.0); Eosinophils # 0.1 K/mm3 (0.0-0.4); Eosinophils % 0.5 % (0.1-12.0); Hematocrit 41.4 % (37.0-47.0); Hemoglobin 12.6 g/dL (12.2-16.2); Lymphocytes # 2.5 K/mm3 (0.7-4.5); Lymphocytes % 18.7 % (10-50); Mean Corpuscular HGB Conc 30.4 g/dL (31.8-35.4); Mean Corpuscular Hemoglobin 29.1 pg (27.0-31.2); Mean Corpuscular Volume 95.8 fl (81-99); Mean Platelet Volume 9.2 fl (7.4-10.4); Monocytes # 0.6 K/mm3 (0.1-1.0); Monocytes % 4.7 % (1.7-9.3); Neutrophils % 75.4 % (37.0-80.0); Platelet Count 313 K/mm3 (142-424); Red Blood Count 4.32 M/mm3 (4.20-5.40); Red Cell Distribution Width 13.2 % (11.5-17.5); White Blood Count 13.3 K/mm3 (4.8-10.8)
[2020-03-19 05:17] LABS: Chloride 98 mmol/L (98-107); Sodium 136 mmol/L (136-145)
[2020-03-19 05:20] LABS: Blood Urea Nitrogen 10 mg/dl (7-17); Creatinine Clearance Estimated 48 mL/min (50-200); Estimated Glomerular Filt Rate 101 ml/min (>60); GFR (African American) 122 ML/MIN (>60)
[2020-03-19 05:21] LABS: Calcium 9.1 mg/dl (8.4-10.2); Carbon Dioxide 29 mmol/L (22.0-30.0); Glucose 107 mg/dl (74-100)
--- NOTE | 2020-03-19 07:29 | PC.NURSE ---
Dr Leija notified of surgical consult
--- NOTE | 2020-03-19 07:31 | HMH.PHAVTE ---
[facility] Pharmacy VTE Monitoring - Patient Demographics Admission date: 03/19/20 Report Date: 03/19/20 Time: 07:31 Allergies/Adverse Reactions: Patient Allergies No Known Allergies Allergy (Verified 08/29/18 09:19) Height: 1.52 m Weight: 53.297 kg Patient Problems: Current Active Problems Chronic atrial fibrillation (Chronic) Fall (Acute) Hypokalemia (Acute) Fracture of lower leg, closed (Acute) - VTE Risk Labs: VTE Related Lab Results Hgb 12.6 g/dL (12.2-16.2) 03/19/20 04:00 Hct 41.4 % (37.0-47.0) 03/19/20 04:00 Plt Count 313 K/mm3 (142-424) 03/19/20 04:00 BUN 10 mg/dl (7-17) 03/19/20 04:00 Creatinine 0.60 mg/dl (0.52-1.04) 03/19/20 04:00 Estimated Creat Clear 48 mL/min (50-200) 03/19/20 04:00 Was VTE Risk Assessment Performed: Yes VTE Score: 5 VTE Risk Level: Low Risk - Prophylaxis VTE Prophylaxis Ordered?: Yes Types of VTE Prophylaxis: TEDS Knee High Location of Applied Device: Left Leg
--- NOTE | 2020-03-19 08:06 | HMH.PHAINT ---
MEDICATION RECONCILIATION COMPLETED ON PATIENT USING MAR FROM [facility]. -YOJANA HERRERA, HARLEYD
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
--- NOTE | 2020-03-19 09:58 | SW/DCPLANNER ---
Addendum entered by [facility] 03/20/20 14:53: NEGATIVE COVID swab has been faxed to [facility]. This patient will discharge today. Addendum entered by [facility] 03/20/20 14:10: Once COVID swab is collected, if negative: COVID results will need to be faxed to [facility] ([phone]), report called by nurse (Aroldo) then call for ambulance. Patients nurse is aware of situation. Addendum entered by [facility] 03/20/20 09:26: I have informed Doreen with [facility] that this patient will discharge back today. Addendum entered by [facility] 03/19/20 14:05: I have informed Doreen at [facility] that this patient will discharge back tomorrow pending no setbacks. Original Note: This patient currently resides at [facility]. I have spoke with Doreen at [facility] and she has stated that this patient is I[facility] level of care. I will continue to follow up with Doreen until patient is medically stable for discharge.
--- NOTE | 2020-03-19 11:18 | CA_ITS ---
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 Left atrium is mildly enlarged, left ventricle is normal size, there is probably preserved left ventricular systolic function, visually estimated ejection fraction 50% with no regional wall motion abnormality, endocardial surfaces are poorly visualized. Diastolic parameters are inconclusive. Right Ventricle Right atrium and right ventricle appears to be mildly enlarged with normal contractility. Aortic Valve Aortic valve is not well-visualized. Mitral Valve Mitral valve is grossly normal, there is mild mitral regurgitation. Tricuspid Valve Tricuspid valve is grossly normal, there is trace tricuspid regurgitation. Pulmonic Valve Pulmonic valve is poorly visualized. Great Vessels Aortic root is normal size. Pericardium No significant pericardial effusion noted. Conclusion 1. Technically difficult and limited study as described above. Left atrium is mildly enlarged, left ventricle is normal size, visually estimated ejection fraction 50% with no obvious regional wall motion abnormality in the obtained views, diastolic parameters are inconclusive. 2. Mildly enlarged right ventricle with normal contractility. 3. Mild mitral and trace tricuspid regurgitation. 4. No significant pericardial effusion noted. Electronically signed by : Trenton Davis, 03/20/2020 06:09:48
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
--- NOTE | 2020-03-19 11:59 | XR_ITS ---
PROCEDURE: XR CHEST PORTABLE CLINICAL HISTORY: COPD Shortness of air COMPARISON: CT CHW CT CHEST W/ CONTRAST from 12/18/2014 CR XR CHEST PORTABLE from 01/18/2020 CR XR CHEST PORTABLE from 01/26/2020 CR XR CHEST AP from 03/19/2020 FINDINGS: The cardiomediastinal silhouette and pulmonary vascularity are within normal limits. Changes of COPD. Patchy density is present in the left mid lung laterally suspicious for underlying pneumonia. The remaining lungs are clear. There are old bilateral rib fractures. IMPRESSION: COPD with left midlung pneumonia Dictated by: Robert Dennis MD 03/19/2020 13:11 Robert Dennis MD in [place] 03/19/2020 13:11
--- NOTE | 2020-03-19 14:00 | HMH.PULMCON ---
*Admission Date: 03/19/20 *History of present illness: Ms. Cardenas is a 64-year-old female with medical history of COPD on long-term oxygen therapy at 2 L, chronic smoker more than [id number] smoking history, last smoked 8 years ago, atrial fibrillation on Xarelto, at her baseline respiratory status with no recent worsening symptoms presented to the ED status post fall and experienced tib-fib fracture. Pulmonary was called to evaluate her operative risk for femur fixation under general anesthesia. Baseline using Dulera inhaler along with albuterol as needed. On this visit patient denies fevers, denies chills, denies night sweats, denies hemoptysis, denies any worsening productive cough, denies any worsening respiratory status. Patient admits her respiratory status is at baseline. [facility] History Medical History: Reports:: Anxiety, Arrhythmia, Atrial Fibrillation, Congestive Heart Failure, Chronic Obstructive Pulmonary Disease (COPD), Coronary Artery Disease, Dementia, Depression, Gastroesophageal Reflux Disease(GERD), Home Oxygen, Hyperlipidemia, Hypertension, Lung Disease, Migraine, Osteoporosis Denies:: Cancer, Diabetes Mellitus Type 1, Diabetes Mellitus Type 2, Internal Pacemaker, MRSA, Seizures *Have you ever received a pneumonia vaccine?: Yes *Have you received a flu vaccine this season?: Yes Other Medical History: Reports: Anemia, Arthritis, Cataracts, Fibromyalgia, Osteoporosis Laterality Cases: Right: Total Hip Replacement, Bilateral: Cataract Other Surgeries: Yes: No Previous Surgery, Cholecystectomy, Colonoscopy, , Hernia Repair, Hysterectomy-Total. No: Pacemaker Amputation: No Fractures: No - *Social History Smoking Status: Former smoker Tobacco Type: cigarettes # Packs/Day (cigarettes): 0 #Yrs smoked (if former smoker): 40 Alcohol Intake: never Alcohol Intake Frequency:: other Substance Use Type: marijuana *Occupational Status:: disabled Housing: shelter Household Members: caregiver *Travel in the last 8 weeks: None - Psychiatric History Pschychiatric History:: Reports:: Anxiety, Depression Family Hx:: No significant family history ROS - Review of Systems Review of systems:: pertinent systems reviewed and negative unless documented below - Cons Denies anorexia - Card Reports shortness of breath with activity - Resp Respiratory: Yes chest congestion, Yes cough, Yes dyspnea, Yes dyspnea on exertion, No excessive phlegm production, No coughing up blood, No pain on inspiration, No pain with cough, No cough with sputum production, No pain with breathing, No snoring, No stridor, No wheezing, No other - GI Gastrointestingal: Reports: system reviewed and no additional complaints, except as docu - [place] Musculoskeletal: Reports joint pain Meds Home Medications Medication Instructions Recorded Confirmed Type Duloxetine HCl [Cymbalta] 120 mg PO DAILY 04/13/17 03/19/20 History Rivaroxaban [Xarelto 20mg Tablet*] 20 mg PO QPMWM 04/13/17 03/19/20 History Baclofen 20 mg PO BID 07/06/17 03/19/20 History Docusate Sodium [Colace 250mg 250 mg PO BID 08/02/17 03/19/20 History capsule] Potassium Chloride [Klor-Con 10mEq 10 meq PO DAILY 08/02/17 03/19/20 History tab] Torsemide [Demadex 20mg tablet] 20 mg PO DAILY 08/02/17 03/19/20 History ondansetron HCL [Zofran 4mg Tab*] 4 mg PO Q4-6H PRN 08/02/17 03/19/20 History morphine 30 mg capsule,extended 30 mg PO BID cap 08/02/18 03/19/20 History release 24 hr multiphase Fluticasone/Vilanterol [Breo 1 puff IH DAILY 01/22/20 03/19/20 History Ellipta 100-25 Mcg INH] Folic Acid 0.4 mg PO DAILY 01/22/20 03/19/20 History Loratadine [Claritin 10mg 10 mg PO DAILY 01/22/20 03/19/20 History Tablet] Acetaminophen [Acetaminophen Extra 500 mg PO Q6 PRN 01/23/20 03/19/20 History Strength] Albuterol Sulfate [Ventolin HFA 2 puffs IH Q4-6H PRN 01/23/20 03/19/20 History Inhaler] Ascorbate Calcium [Vitamin C] 500 mg PO DAILY 01/23/20 03/19/20 Histor
[2020-03-20 04:00] VITALS: BP 126/78; PULSE 108; RESP 18; TEMP 37; O2SAT 96
[2020-03-20 05:23] VITALS: BMI 22.2
--- NOTE | 2020-03-20 05:24 | PC.NURSE ---
no acute changes since prior assessment, pt has rested well t/o shift, has complained of pain one time and was treated per MAR, lungs CTA, remains on 2L NC with O2 sats 96-98%, HR 108
[2020-03-20 08:00] VITALS: BP 149/95; PULSE 110; RESP 18; TEMP 36.7; O2SAT 96; O2SAT 97
--- NOTE | 2020-03-20 08:36 | HMH.ACPN2 ---
<Yessenia Martin - Last Filed: 03/20/20 08:36> Internal Medicine - PN: Subj *Date: 03/20/20 *Time: 08:36 Interval history: Patient states she is feeling a little bit better today. She ate a good breakfast and slept well last night. She is anxious to go back to the senior living today. Exam Vital signs and Labs for Last 24 Hours: Temp Pulse Resp BP Pulse Ox 98.0 F 110 H 18 149/95 H 96 03/20/20 08:00 03/20/20 08:00 03/20/20 08:00 03/20/20 08:00 03/20/20 08:00 I & O for Last 24 hours: Intake & Output 03/17/20 03/18/20 03/19/20 03/20/20 11:59 11:59 11:59 11:59 Intake Total 0 / 0 720 / 720 Output Total 200 / 200 Balance 0 / 0 520 / 520 Weight 117 lb 8 oz 113 lb 4 oz - Constitutional no acute distress - *Routine Respiratory Exam Present: decreased breath sounds, rhonchi (bilaterally) - *Routine Cardiovascular Exam Present: RRR - *Routine Abdominal Exam Present: soft, normoactive bowel sounds. Absent: tenderness - *Routine Extremities Exam Absent: cyanosis, clubbing, edema Comments: right foot in brace - *Routine Skin Exam Present: warm. Absent: rash - *Routine Neurological Exam Present: alert, oriented X3 Assessment and Plan (1) Paroxysmal atrial fibrillation Status: Acute Category: Medical Code(s): I48.0 - Paroxysmal atrial fibrillation (2) Fall Status: Acute Qualifiers: Encounter type: initial encounter Qualified Code(s): W19.XXXA - Unspecified fall, initial encounter Category: Medical Code(s): W19.XXXA - Unspecified fall, initial encounter (3) Fracture of lower leg, closed Status: Acute Qualifiers: Encounter type: initial encounter Laterality: right Qualified Code(s): S82.91XA - Unspecified fracture of right lower leg, initial encounter for closed fracture Category: Medical Code(s): S82.90XA - Unspecified fracture of unspecified lower leg, initial encounter for closed fracture (4) Hypokalemia Status: Acute Category: Medical Code(s): E87.6 - Hypokalemia (5) COPD (chronic obstructive pulmonary disease) Status: Acute Category: Medical Code(s): J44.9 - Chronic obstructive pulmonary disease, unspecified (6) Chronic pain syndrome Status: Chronic Category: Medical Code(s): G89.4 - Chronic pain syndrome (7) Depression Status: Chronic Category: Medical Code(s): F32.9 - Major depressive disorder, single episode, unspecified (8) HTN (hypertension) Status: Chronic Category: Medical Code(s): I10 - Essential (primary) hypertension (9) Preop cardiovascular exam Status: Acute Category: Medical Code(s): Z01.810 - Encounter for preprocedural cardiovascular examination (10) HCAP (healthcare-associated pneumonia) Status: Acute Category: Medical Code(s): J18.9 - Pneumonia, unspecified organism - Assessment and plan all Dx Assessment and Plan for all problems:: Pulmonology started patient on doxycycline. Will continue this. Patient stable to be discharged back to [facility]. Will need to hold the xarelto until surgery next Wednesday. <Vargas Greene - Last Filed: 03/20/20 12:24> Internal Medicine - PN: Subj *Date: 03/20/20 *Time: 12:23 Exam Vital signs and Labs for Last 24 Hours: Temp Pulse Resp BP Pulse Ox 98.0 F 106 H 22 144/84 H 96 03/20/20 08:00 03/20/20 11:38 03/20/20 08:42 03/20/20 11:38 03/20/20 11:38 I & O for Last 24 hours: Intake & Output 03/18/20 03/19/20 03/20/20 03/21/20 11:59 11:59 11:59 11:59 Intake Total 0 / 0 720 / 720 Output Total 200 / 200 Balance 0 / 0 520 / 520 Weight 117 lb 8 oz 109 lb 1 oz Assessment and Plan (1) Paroxysmal atrial fibrillation Status: Acute Category: Medical Code(s): I48.0 - Paroxysmal atrial fibrillation (2) Fall Status: Acute Qualifiers: Qualified Code(s): W19.XXXA - Unspecified fall, initial encounter Category: Medical Code(s): W19.XXXA - Unspecified fall,
[2020-03-20 08:42] VITALS: RESP 22
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
--- NOTE | 2020-03-20 10:16 | PC.NURSE ---
Called and spoke with Anum Greene's office and requested d/c summary be put in therefore pt is able to be d/cd as ordered.
[2020-03-20 11:38] VITALS: BP 144/84; PULSE 106; O2SAT 96
--- NOTE | 2020-03-20 11:44 | PC.NURSE ---
Called report to [facility] and also [phone] for transportation.
[2020-03-20 11:52] VITALS: BMI 21.2
--- NOTE | 2020-03-20 12:21 | HMH.ORTHPN ---
Subjective Date: 03/20/20 Time: 11:00 Principal diagnosis: R distal tib-fib fracture Interval history: The patient is doing well this morning, awaiting transfer back to the nursing facility. She will undergo surgery next Wednesday. Xarelto has been held and will be held until after surgery so that she can have spinal anesthesia. PN: Obj Ex Vital signs: Temp Pulse Resp BP Pulse Ox 98.0 F 106 H 22 144/84 H 96 03/20/20 08:00 03/20/20 11:38 03/20/20 08:42 03/20/20 11:38 03/20/20 11:38 - Constitutional no acute distress - Routine HEENT Exam Head: Present: normocephalic Eye: Present: EOMI ENT: Present: mucous membranes moist - Routine Neck Exam Present: trachea midline - Routine Respiratory Exam Absent: respiratory distress, wheezes - Routine Cardiovascular Exam Present: RRR - Routine Abdominal Exam Present: soft. Absent: tenderness - Routine Extremities Exam Comments: RLE in short leg splint, wrapped with LEIA wrap wiggles toes, sensation intact to toes patient refuses removal of splint at bedside R calf soft, compressible proximally and non-tender no tenderness around R knee - Routine Skin Exam Present: warm - Routine Neurological Exam Present: alert, oriented X3, moving all extremities, normal tone, vision grossly intact, hearing grossly intact, normal speech. Absent: sensory deficit, motor deficit, altered mental status Progress Note: A&P (1) Paroxysmal atrial fibrillation Status: Acute (2) Fall Status: Acute (3) Fracture of lower leg, closed Status: Acute (4) Hypokalemia Status: Acute (5) COPD (chronic obstructive pulmonary disease) Status: Acute (6) Chronic pain syndrome Status: Chronic (7) Depression Status: Chronic (8) HTN (hypertension) Status: Chronic (9) Preop cardiovascular exam Status: Acute (10) HCAP (healthcare-associated pneumonia) Status: Acute Assessment and Plan for All Diagnoses:: 64yo F s/p 03/18/20, with R distal tib-fib fxs -- do not remove splint, keep RLE elevated -- may apply ice to RLE as needed -- continue NWB RLE -- continue to hold Xarelto; discussed with Dr. Greene and cardiology, will not place on lovenox in interim -- f/u next Wednesday to outpatient surgery for IMN R tibia
[2020-03-20 13:10] LABS: Adenovirus,PCR Not Detected (NotDetected); Bordetella Pertussis Not Detected (NotDetected); Chlamydophila Pneumoniae, PCR Not Detected (NotDetected); Coronavirus 19, PCR Not Detected (NotDetected); Coronavirus 229E Not Detected (NotDetected); Coronavirus NL63 Not Detected (NotDetected); Coronavirus OC43 Not Detected (NotDetected); Coronovirus HKU1,PCR Not Detected (NotDetected); Human Metapneumovirus Not Detected (NotDetected); Influenza A, PCR Not Detected (NotDetected); Influenza AH1, 2009 Not Detected (NotDetected); Influenza AH1, PCR Not Detected (NotDetected); Influenza AH3,PCR Not Detected (NotDetected); Influenza B, PCR Not Detected (NotDetected); Mycoplasma Pneumoniae, PCR Not Detected (NotDetected); Parainfluenza 1, PCR Not Detected (NotDetected); Parainfluenza 2, PCR Not Detected (NotDetected); Parainfluenza 3, PCR Not Detected (NotDetected); Parainfluenza 4, PCR Not Detected (NotDetected); Respiratory Syncytial Virus Not Detected (NotDetected); Rhinovirus/Enterovirus Not Detected (NotDetected)
[2020-03-20 13:50] VITALS: PULSE 112; RESP 18; O2SAT 97
--- NOTE | 2020-03-20 14:18 | PC.NURSE ---
Report given to Charlotte Encinas RN. Also, pending covid swab and new orders for pt to be d/cd. Have made him aware and [facility] aware as well, that when pt is ready for transport they will be notified. [facility] at [facility] notified that there will be new orders from Dr. Leija as well.
[2020-03-20 16:00] VITALS: BP 140/80; PULSE 105; RESP 18; TEMP 36.8; O2SAT 96
== END 2020-03-20 17:22 ==
LOC: ER 03-19 02:50 → 2ND 03-19 11:39
PROVIDERS: Admitting Provider Family Medicine; Emergency Provider Emergency Medicine; Visit Provider Family Medicine
DX: S82.301A Unspecified fracture of lower end of right tibia, initial encounter for closed fracture (principal); S82.491A Other fracture of shaft of right fibula, initial encounter for closed fracture; J96.11 Chronic respiratory failure with hypoxia; Z99.81 Dependence on supplemental oxygen; J44.9 Chronic obstructive pulmonary disease, unspecified; J18.9 Pneumonia, unspecified organism; I48.0 Paroxysmal atrial fibrillation; E87.6 Hypokalemia; Z79.51 Long term (current) use of inhaled steroids; Z79.01 Long term (current) use of anticoagulants; Z79.899 Other long term (current) drug therapy; W01.0XXA Fall on same level from slipping, tripping and stumbling without subsequent striking against object, initial encounter; Z91.81 History of falling; Y92.128 Other place in nursing home as the place of occurrence of the external cause; R29.6 Repeated falls; I11.0 Hypertensive heart disease with heart failure; I50.9 Heart failure, unspecified
CPT/HCPCS: 29515; 36415; 71045; 72170; 73590; 73610; 80048; 80053; 84484; 85025; 86328; 87070; 87205; 87581; 87633; 87798; 93005; 93306; 94640; 96365; 96375; 99285; G0378; J2405; U0003

== ENCOUNTER 2020-03-26 09:03 | Observation (INO) | payer MEDICARE, MEDICAID, SELFPAY ==
[2020-03-26] VITALS (19 sets, daily range): BP systolic 111–152; BP diastolic 70–98; PULSE 82–105; RESP 16–18; TEMP 36.2–43; O2SAT 92–100; BMI 20.7; BMI 23.5
--- NOTE | 2020-03-26 09:49 | SW/DCPLANNER ---
Addendum entered by Xiomy Prather 03/27/20 14:36: COVID is negative and will be faxed to [facility]. Patient will discharge today. Addendum entered by Xiomy Prather 03/27/20 11:29: I have notified Doreen with [facility] that this patient will discharge back today. COVID swab has been ordered. I will follow up with Doreen once COVID swab is resulted. Original Note: This patient currently resides at [facility]. I have spoke with Doreen from [facility] this morning whom stated this patient is [facility] level of care. I will continue to follow up with Doreen until patient is medically stable for discharge.
[2020-03-26 12:13] LABS: Potassium 3.6 mmoL/L (3.5-5.1)
--- NOTE | 2020-03-26 14:27 | XR_ITS ---
PROCEDURE: XR TIBIA FIBULA RT 2V CLINICAL INDICATION: s/p intramedullary nailing COMPARISON: CR XR TIBIA FIBULA RT 2V from 03/19/2020 CR XR ANKLE RT 2V from 03/26/2020 FINDINGS: There is an intramedullary holly extending the length of the tibia from just below the tibial plateau to the distal tibia just above the tibial talar articulation. The intramedullary holly is fixated by 3 threaded screws proximally and and distally. The comminuted distal fibular fracture has been reduced and is in satisfactory alignment. IMPRESSION: Satisfactory ORIF distal tibial and fibular fractures Dictated by: Dr. Clark Mlilard MD 03/26/2020 17:27 Dr. Clark Millard MD in [place] 03/26/2020 17:27
--- NOTE | 2020-03-26 14:39 | HMH.ANESCL ---
[facility] Anesthesia Checklist - Patient Identification Patient Identification: Arm Band, Verbal (Name & ) - Structural Data Admitted From: Long-term Nursing Facility Planned Operative Procedure/s: tibia nailing Consent for Planned Operative Procedure(s) Verified: Yes Verified Documents: History and Physical - NPO Status Verified Time NPO: 00:00 - Chart Verification Results Verified: CBC, BMP - Additional verifications Patient : No Anesthesia Reactions: Yes (nausea) Hx Blood Transfusions: No Blood Transfusion Reaction: No Cephalosporin Allergy: No Previous Colonoscopy: Yes - Cardiovascular Assessment Heart Sounds: S1 & S2 Pulse Strength: Baseline Pulse Rhythm: Regular Peripheral Edema: No - Airway Assessment C-Spine Mobility Assessed: Yes TMJ Mobility Assessed: Yes Dentition: Edentulous - Neurological Assessment Level of Consciousness: Awake, Alert, Appropriate Hx Seizures: No Numbness or tingling in extremities: No - Anesthesia Plan Anesthesia Risk discussed: Yes Anesthesia Plan: Verified ASA Class: IV Anesthesia Type: MAC w/Spinal [facility] History I have reviewed the patient's past medical history: Yes Medical History: Reports:: Anxiety, Arrhythmia, Atrial Fibrillation, Congestive Heart Failure, Chronic Obstructive Pulmonary Disease (COPD), Coronary Artery Disease, Dementia, Depression, Gastroesophageal Reflux Disease(GERD), Home Oxygen, Hyperlipidemia, Hypertension, Lung Disease, Migraine, Osteoporosis Denies:: Cancer, Diabetes Mellitus Type 1, Diabetes Mellitus Type 2, Internal Pacemaker, MRSA, Seizures *Have you ever received a pneumonia vaccine?: Yes *Have you received a flu vaccine this season?: Yes Other Medical History: Reports: Anemia, Arthritis, Cataracts, Fibromyalgia, Osteoporosis. Denies: Blood Transfusion Reaction Anesthesia experience/problems:: none Laterality Cases: Right: Total Hip Replacement Other Surgeries: Yes: No Previous Surgery, Cholecystectomy, Colonoscopy, , Hernia Repair, Hysterectomy-Total. No: Pacemaker Amputation: No Fractures: No - *Social History Last grade of school completed: 7th or 8th Smoking Status: Former smoker Tobacco Type: cigarettes # Packs/Day (cigarettes): 0 #Yrs smoked (if former smoker): 40 Alcohol Intake: never Alcohol Intake Frequency:: other Substance Use Type: marijuana *Occupational Status:: disabled Housing: assisted living facility Household Members: caregiver *Travel in the last 8 weeks: None - Psychiatric History Pschychiatric History:: Reports:: Anxiety, Depression Family Hx:: No significant family history
--- NOTE | 2020-03-26 14:41 | P.PN_ITS ---
[facility] Anesthesia Record Part I Intake, IV Amount: 1,300 Estimated blood loss (mL): 50 Urine output (mL): 0 Blood Products used (#): none Blood Pressure: 152/97 SaO2: 92 Pulse Rate: 104 Respiratory Rate: 18 Temperature: 97.7 F Patient is:: Drowsy, Nasal O2, Stable Stable to PACU at:: 14:37
--- NOTE | 2020-03-26 14:41 | XR_ITS ---
PROCEDURE: XR ANKLE RT 2V CLINICAL INDICATION: ORIF RT ANKLE COMPARISON: No exams were available for comparison FINDINGS: Fluoroscopic spot films in surgery show the intramedullary holly transfixing the distal tibial fracture. The holly is fixated by 2 horizontally placed threaded screws the lower of the 2 screws projection to the distal fibula. Fibular is in satisfactory alignment. Fluoroscopic time was 3 minutes 38 seconds. IMPRESSION: Satisfactory ORIF distal tibial and fibular fractures Dictated by: Dr. Clark Millard MD 03/27/2020 09:40 Dr. Clark Millard MD in [place] 03/27/2020 09:40
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
--- NOTE | 2020-03-26 16:10 | HMH.PHAVTE ---
[facility] [place] Pharmacy VTE Monitoring - Patient Demographics Admission date: 03/26/20 Report Date: 03/26/20 Time: 16:10 Allergies/Adverse Reactions: Patient Allergies tuberculin, purified protein deriva Allergy (Verified 03/26/20 09:41) Height: 1.52 m Weight: 54.63 kg Patient Problems: Current Active Problems HTN (hypertension) (Chronic) Chronic atrial fibrillation (Chronic) Chronic pain syndrome (Chronic) Tobacco use disorder (Chronic) Chronic hypercapnic respiratory failure (Chronic) Hypokalemia (Acute) Fracture of lower leg, closed (Acute) COPD (chronic obstructive pulmonary disease) (Acute) - Prophylaxis VTE Prophylaxis Ordered?: Yes Types of VTE Prophylaxis: Pharmacological Pharmacologic Type: Other (XARELTO)
--- NOTE | 2020-03-26 16:11 | HMH.PHAINT ---
HOME MEDICATIONS RECONCILED FROM [facility].
--- NOTE | 2020-03-26 17:44 | XR_ITS ---
PROCEDURE: XR CHEST PORTABLE Referring Doctor: Vargas Greene Patient Age:64Y CLINICAL HISTORY: f/u pneumonia COMPARISON: CT CHW CT CHEST W/ CONTRAST from 12/18/2014 CR XR CHEST PORTABLE from 01/26/2020 CR XR CHEST PORTABLE from 03/19/2020 CR XR CHEST AP from 03/19/2020 FINDINGS: Rotated AP CXR but rotated to the left-this distorts the chest. However the of lung gillespie are fairly well visualized. Left chest. The subtle minimal patchy infiltrate previously seen at the left mid lung appears to be improved. Right chest. Right lung appears clear with no definitive pneumonia or consolidation. Old right posterior 8th rib fracture noted. The heart appears upper normal in size. Linda and mediastinal structures unremarkable. IMPRESSION: There has been regression and improvement of the minimal patchy infiltrate at the left mid lung since 03/19/2020 COPD hyperexpansion mild chronic changes otherwise again seen Dictated by: Jackson Morales MD 03/26/2020 18:37 Jackson Morales MD in [place] 03/26/2020 18:37
--- NOTE | 2020-03-26 18:10 | PC.NURSE ---
shift note: pt is a new admit from the OR today. Boot noted to right left. SCD noted to left leg. VSS. Is A&O. Tolerating liquids well. Lungs are clear. Uses bedpan without difficulty. Urinated once during my shift.
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
[2020-03-27] VITALS (9 sets, daily range): BP systolic 102–135; BP diastolic 64–98; PULSE 61–107; RESP 16–19; TEMP 36.4–36.7; O2SAT 93–99; BMI 20.7
--- NOTE | 2020-03-27 04:55 | PC.NURSE ---
Pt is A&O x4 and has slept well through the night. Pt received one dose of [place] for incision related pain. No other complaints of pain or discomfort. Lung sounds are clear but diminished, sats have been mid 90s on 2L NC. Bowel sounds positive x4, abd soft and nontender. Post-surgical dressing is clean dry and intact, with walking boot overtop. VSS, call light in reach. No concerns at this time.
--- NOTE | 2020-03-27 06:16 | PC.NURSE ---
All care completed under the supervision of this RN
[2020-03-27 06:33] LABS: Basophils # 0.1 K/mm3 (0-0.2); Basophils % 0.4 % (0.1-2.0); Eosinophils # 0.1 K/mm3 (0.0-0.4); Hematocrit 38.8 % (37.0-47.0); Lymphocytes % 21.7 % (10-50); Mean Corpuscular HGB Conc 29.5 g/dL (31.8-35.4); Mean Corpuscular Hemoglobin 28.7 pg (27.0-31.2); Mean Corpuscular Volume 97.6 fl (81-99); Mean Platelet Volume 8.2 fl (7.4-10.4); Monocytes # 0.8 K/mm3 (0.1-1.0); Neutrophils # 9.7 K/mm3 (1.8-7.8); Platelet Count 449 K/mm3 (142-424); Red Blood Count 3.98 M/mm3 (4.20-5.40); Red Cell Distribution Width 13.3 % (11.5-17.5); White Blood Count 13.6 K/mm3 (4.8-10.8)
[2020-03-27 06:36] LABS: Chloride 85 mmol/L (98-107); Sodium 134 mmol/L (136-145)
[2020-03-27 06:39] LABS: Blood Urea Nitrogen 29 mg/dl (7-17); Creatinine Clearance Estimated 42 mL/min (50-200); Estimated Glomerular Filt Rate 56 ml/min (>60); GFR (African American) 67 ML/MIN (>60)
[2020-03-27 06:40] LABS: Glucose 116 mg/dl (74-100)
[2020-03-27 06:46] LABS: Anion Gap 11.7 mEq/L (5-15)
[2020-03-27 07:02] LABS: Hemoglobin 11.4 g/dL (12.2-16.2)
[2020-03-27 07:13] LABS: Calcium 8.8 mg/dl (8.4-10.2); Carbon Dioxide 40 mmol/L (22.0-30.0)
--- NOTE | 2020-03-27 07:25 | HMH.ANESII ---
[facility] Anesthesia Record Part II Discharge Time: 15:07 Destination: Medical Surgical Department PACU nurse assessment reviewed?: Yes Patient Condition:: Good Anesthesia Complications:: None Swallowing reflex intact?: Yes Cyanosis?: No Blood Pressure: 135/98 Pulse Rate: 102 Temperature: 97.7 F Mental Status: Alert & Oriented Pain level:: 5 Nausea and/or vomitting:: None Intake, IV Amount: 35 Comments:: pt pain nonsurgical related
--- NOTE | 2020-03-27 08:42 | HMH.ACPN2 ---
Internal Medicine - PN: Subj *Date: 03/27/20 *Time: 10:23 Interval history: Uneventful night. Appropriate complaints of pain. Denies shortness of breath or cough. No urinary complaints. Exam Vital signs and Labs for Last 24 Hours: Temp Pulse Resp BP Pulse Ox 97.6 F 98 H 16 115/75 95 03/27/20 08:00 03/27/20 08:00 03/27/20 08:09 03/27/20 08:00 03/27/20 08:00 Laboratory Results - last 24 hr 03/26/20 12:03: Potassium 3.6 D 03/27/20 05:40: WBC 13.6 H, RBC 3.98 L, Hgb 11.4 L D, Hct 38.8, MCV 97.6, MCH 28.7, MCHC 29.5 L, RDW 13.3, Plt Count 449 H D, MPV 8.2, Neut % (Auto) 71.0, Lymph % (Auto) 21.7, [place] % (Auto) 6.0, Eos % (Auto) 1.0, Baso % (Auto) 0.4, Neut # (Auto) 9.7 H, Lymph # (Auto) 3.0, [place] # (Auto) 0.8, Eos # (Auto) 0.1, Baso # (Auto) 0.1 03/27/20 05:40: Sodium 134 L, Potassium 2.7 L* D, Chloride 85 L, Carbon Dioxide 40 H, Anion Gap 11.7, BUN 29 H, Creatinine 1.00, Estimated Creat Clear 42, Estimated GFR 56 L, Est GFR ( Amer) 67, Glucose 116 H, Calcium 8.8 D I & O for Last 24 hours: Intake & Output 03/24/20 03/25/20 03/26/20 03/27/20 11:59 11:59 11:59 11:59 Intake Total 1974 Output Total Balance 1973 Weight 117 lb 105 lb 7 oz Narrative: She is sitting up in the chair. Alert and oriented. Chest with coarse breath sounds which are generally diminished. No rales or wheezes. Heart is regular. Abdomen is soft and nondistended with no tenderness. Assessment and Plan (1) COPD (chronic obstructive pulmonary disease) Status: Acute Category: Medical Code(s): J44.9 - Chronic obstructive pulmonary disease, unspecified (2) Fracture of lower leg, closed Status: Acute Qualifiers: Encounter type: initial encounter Laterality: right Qualified Code(s): S82.91XA - Unspecified fracture of right lower leg, initial encounter for closed fracture Category: Medical Code(s): S82.90XA - Unspecified fracture of unspecified lower leg, initial encounter for closed fracture (3) Hypokalemia Status: Acute Category: Medical Code(s): E87.6 - Hypokalemia (4) Chronic hypercapnic respiratory failure Status: Chronic Category: Medical Code(s): J96.12 - Chronic respiratory failure with hypercapnia (5) Chronic pain syndrome Status: Chronic Category: Medical Code(s): G89.4 - Chronic pain syndrome (6) HTN (hypertension) Status: Chronic Category: Medical Code(s): I10 - Essential (primary) hypertension (7) Tobacco use disorder Status: Chronic Category: Medical Code(s): F17.200 - Nicotine dependence, unspecified, uncomplicated (8) Anxiety Status: Acute Category: Medical Code(s): F41.9 - Anxiety disorder, unspecified (9) Paroxysmal atrial fibrillation Status: Acute Category: Medical Code(s): I48.0 - Paroxysmal atrial fibrillation - Assessment and plan all Dx Assessment and Plan for all problems:: WBC elevated today. CXR shows resolved left lung infiltrate. Will check UA to r/o UTI. Also note hypokalemia and will increase oral supplement and plan to repeat labs at [place]. Otherwise she is medically stable for discharge back to [place]. Xarelto restarted today.
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
--- NOTE | 2020-03-27 11:21 | HMH.ORTHPN ---
Subjective Date: 03/27/20 Time: 10:30 Principal diagnosis: s/p IMN R tibia Interval history: The patient is drowsy this morning, feeling fatigued. Sleeping on entry, difficult to awaken, sternal rub needed to get response. Appears comfortable. Has been out of bed with PT and cleared by PT and Dr. Greene for return back to SNF. PN: Obj Ex Vital signs: Temp Pulse Resp BP Pulse Ox 97.6 F 90 16 115/75 95 03/27/20 08:00 03/27/20 11:18 03/27/20 08:09 03/27/20 08:00 03/27/20 08:00 - Constitutional no acute distress - Routine HEENT Exam Head: Present: normocephalic Eye: Present: EOMI ENT: Present: mucous membranes moist - Routine Neck Exam Present: trachea midline - Routine Respiratory Exam Absent: respiratory distress, wheezes - Routine Cardiovascular Exam Present: RRR - Routine Abdominal Exam Present: soft - Routine Extremities Exam Comments: RLE surgical dressings + CAM boot intact, no strikethrough +DF/PF/EHL RLE SILT distally RLE in all distributions palpable pedal pulses RLE, foot pink/warm R calf soft, compressible - Routine Skin Exam Present: warm - Routine Neurological Exam Present: normal tone. Absent: sensory deficit, motor deficit Progress Note: A&P (1) COPD (chronic obstructive pulmonary disease) Status: Acute (2) Fracture of lower leg, closed Status: Acute (3) Hypokalemia Status: Acute (4) Chronic hypercapnic respiratory failure Status: Chronic (5) Chronic pain syndrome Status: Chronic (6) HTN (hypertension) Status: Chronic (7) Tobacco use disorder Status: Chronic (8) Anxiety Status: Acute (9) Paroxysmal atrial fibrillation Status: Acute Assessment and Plan for All Diagnoses:: 64yo F POD 1 s/p IMN R tibia fx -- WBAT RLE in CAM boot; ok to remove boot while in bed -- PT to continue at SNF -- elevate/ice RLE frequently -- up as jefe with assist -- home medication restarted -- ok to restart xarelto today -- SCD LLE, incentive spirometry 10x/hr while awake -- hypokalemia being addressed by Dr. Greene with increase in oral dosage; cleared medically for return to SNF -- will d/c back to SNF today, follow-up in the office in 1 week
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
[2020-03-27 14:01] LABS: Potassium 2.7 mmoL/L (3.5-5.1)
--- NOTE | 2020-03-27 16:00 | PC.NURSE ---
[facility] called about MAR on pt. They stated patient had phenergan and narcan IV ordered on the MAR. They said if the pt didn't need it, it needed to be taken off MAR and new med list refaxed. Dr. Leija was contacted and she said to discontinue those 2 meds. It was put in my accident. [place] in pharmacy was notified and order was deleted. New med list was faxed to [facility]. Bonnie Jones RN stated it was correct when I called to check on it and make sure they didn't need anything else.
== END 2020-03-27 15:55 ==
LOC: 2ND 09:03
PROVIDERS: Nurse Anesthetist, Certified Registered; Admitting Provider Orthopaedic Surgery; PCP Family Medicine; Visit Provider Orthopaedic Surgery
PROC: (CPT 27759; principal; 2020-03-26 10:45)
DX: S82.291A Other fracture of shaft of right tibia, initial encounter for closed fracture (principal); S82.491A Other fracture of shaft of right fibula, initial encounter for closed fracture; W01.0XXA Fall on same level from slipping, tripping and stumbling without subsequent striking against object, initial encounter; Z91.81 History of falling; Y92.128 Other place in nursing home as the place of occurrence of the external cause; I48.0 Paroxysmal atrial fibrillation; J96.12 Chronic respiratory failure with hypercapnia; Z72.0 Tobacco use; I11.0 Hypertensive heart disease with heart failure; I50.9 Heart failure, unspecified; D64.9 Anemia, unspecified; Z79.01 Long term (current) use of anticoagulants; Z79.51 Long term (current) use of inhaled steroids; Z79.899 Other long term (current) drug therapy; I25.10 Atherosclerotic heart disease of native coronary artery without angina pectoris; G89.4 Chronic pain syndrome; E87.6 Hypokalemia; Z99.81 Dependence on supplemental oxygen; M81.0 Age-related osteoporosis without current pathological fracture; F03.90 Unspecified dementia, unspecified severity, without behavioral disturbance, psychotic disturbance, mood disturbance, and anxiety; R29.6 Repeated falls
CPT/HCPCS: 27759; 27780; 36415; 71045; 73590; 73600; 80048; 80053; 84132; 85007; 85014; 85018; 85025; 85048; 85049; 86328; 94640; 96374; 97161; C1713; C1769; C1776; G0378; U0003

== ENCOUNTER → 2020-03-26 09:12 | Outpatient (CLI) | payer MEDICARE, MEDICAID, SELFPAY ==
[2020-03-26 09:16] LABS: MANUAL DIFFERENTIAL MANUAL DIFFERENTIAL (MANUAL DIFF)
[2020-03-26 09:41] LABS: Basophils # 0.1 K/mm3 (0-0.2); Basophils % 0.8 % (0.1-2.0); Eosinophils # 0.3 K/mm3 (0.0-0.4); Hematocrit 49.1 % (37.0-47.0); Hemoglobin 15.8 g/dL (12.2-16.2); Lymphocytes # 2.3 K/mm3 (0.7-4.5); Mean Corpuscular HGB Conc 32.2 g/dL (31.8-35.4); Mean Corpuscular Hemoglobin 30.6 pg (27.0-31.2); Mean Corpuscular Volume 94.9 fl (81-99); Monocytes # 0.4 K/mm3 (0.1-1.0); Monocytes % 2.6 % (1.7-9.3); Neutrophils # 10.6 K/mm3 (1.8-7.8); Neutrophils % 77.5 % (37.0-80.0); Platelet Count 610 K/mm3 (142-424); Red Blood Count 5.17 M/mm3 (4.20-5.40); Red Cell Distribution Width 13.8 % (11.5-17.5); White Blood Count 13.7 K/mm3 (4.8-10.8)
[2020-03-26 10:01] LABS: Sodium 133 mmol/L (136-145)
[2020-03-26 10:03] LABS: Alanine Aminotransferase 13 U/L (12-78); Alkaline Phosphatase 119 U/L (38-126); Aspartate Amino Transferase 46 U/L (14-36); Bilirubin,Total 0.9 mg/dl (0.2-1.3); Blood Urea Nitrogen 30 mg/dl (7-17); Estimated Glomerular Filt Rate 50 ml/min (>60); GFR (African American) 61 ML/MIN (>60)
[2020-03-26 10:04] LABS: Albumin Level 4.6 g/dl (3.5-5.0); Albumin/Globulin Ratio 1.2 (1.1-1.8); Calcium 10.7 mg/dl (8.4-10.2); Glucose 133 mg/dl (74-100); Total Protein,Serum 8.6 g/dl (6.3-8.2)
[2020-03-26 10:11] LABS: Anion Gap 19.9 mEq/L (5-15); Carbon Dioxide 39 mmol/L (22.0-30.0)
[2020-03-26 10:15] LABS: Chloride 77 mmol/L (98-107)
[2020-03-26 10:16] LABS: Potassium 2.9 mmoL/L (3.5-5.1)
[2020-03-26 10:17] LABS: Eosinophils % 2 % (0-3); Lymphocytes % 19 % (10-50); Monocytes % 5 % (2-9); Neutrophils % 74 % (42-76); Total Cells Counted 100
[2020-03-26 10:18] LABS: Platelet Estimate Moderate Increase; RBC Morphology Normal
[2020-03-26 10:23] LABS: Coronavirus 19 IgG Antibody Negative (Negative); Coronavirus 19 IgM Antibody Negative (Negative)
== END ==
PROVIDERS: Visit Provider Orthopaedic Surgery
DX: S82.90XA Unspecified fracture of unspecified lower leg, initial encounter for closed fracture (principal); Z01.818 Encounter for other preprocedural examination; Z03.818 Encounter for observation for suspected exposure to other biological agents ruled out
CPT/HCPCS: 36415; 80053; 85007; 85014; 85018; 85048; 85049; 86328

== ENCOUNTER → 2020-04-05 14:14 | Outpatient (CLI) | payer MEDICARE, MEDICAID, SELFPAY ==
--- NOTE | 2020-04-05 14:21 | XR_ITS ---
PROCEDURE: XR TIBIA FIBULA RT 2V CLINICAL INDICATION: s/p IMN RT tibia Follow-up surgery COMPARISON: CR XR TIBIA FIBULA LT 2V from 01/22/2020 CR XR TIBIA FIBULA RT 2V from 03/19/2020 CR XR TIBIA FIBULA RT 2V from 03/26/2020 CR XR ANKLE WT BEARING RT MIN 3V from 04/05/2020 FINDINGS: Intramedullary holly remains in place with good alignment of the minimally impacted distal tibial fracture with minimal lateral angulation of the distal fracture fragment. Comminuted distal fibular fracture is present with minimal lateral angulation of the distal fracture fragment and minimal medial and dorsal displacement the proximal aspect of the distal fracture fragment. The talar dome has an unremarkable appearance and the ankle mortise appears preserved. IMPRESSION: Good alignment status post ORIF distal tibial fracture with minimally displaced distal fibular fracture Dictated by: Robert Dennis MD 04/05/2020 15:51 Robert Dennis MD in [facility] 04/05/2020 15:51
--- NOTE | 2020-04-05 15:54 | XR_ITS ---
PROCEDURE: XR ANKLE RT MIN 3V CLINICAL INDICATION: right ankle cast applied; fib fx COMPARISON: CR XR ANKLE RT MIN 3V from 03/18/2020 CR XR ANKLE RT 2V from 03/26/2020 CR XR ANKLE WT BEARING RT MIN 3V from 04/05/2020 FINDINGS: There has been interval placement of a cast stabilizing the distal tibial fibular fractures with intramedullary holly present in the distal tibia. There remains good alignment of the distal tibial and fibular fragments. IMPRESSION: Good alignment status post cast placement distal tib fib fractures Dictated by: Robert Dennis MD 04/05/2020 16:52 Robert Dennis MD in [facility] 04/05/2020 16:52
== END ==
PROVIDERS: PCP Family Medicine; Visit Provider Orthopaedic Surgery
DX: W19.XXXA Unspecified fall, initial encounter; Z09 Encounter for follow-up examination after completed treatment for conditions other than malignant neoplasm; S82.91XA Unspecified fracture of right lower leg, initial encounter for closed fracture
CPT/HCPCS: 73590; 73610

== ENCOUNTER 2020-04-21 23:35 | Inpatient (IN) | payer MEDICARE, MEDICAID, SELFPAY ==
[2020-04-21 23:32] VITALS: BP 116/95; PULSE 150; RESP 36; TEMP 38.6; O2SAT 83; BMI 31.2
[2020-04-21 23:33] VITALS: BMI 31.2
--- NOTE | 2020-04-21 23:39 | ECG_ITS ---
APPROVED REPORT Exam: Resting ECG HR:154 bpm ECG Measurements Heart Rate 154 AXES MI 120 P 86 QRSd 60 QRS 67 QT 314 T 96 QTc 502 Conclusion Sinus tachycardia Nonspecific ST and T wave abnormality Abnormal ECG Electronically signed by : Michael Beckman, 04/22/2020 14:15:44
[2020-04-21 23:40] LABS: ABG Base Excess -2.6 mmol/L (-2.4-2.3); ABG HCO3 23.4 mmhg (22.0-26.0); ABG Oxygen Saturation 79 % (90-100); ABG PCO2 45.6 mmhg (35.0-45.0); ABG PH 7.33 mmol/L (7.35-7.45); ABG TCO2 24.8 mmhg (23-27); Allen's Test Acceptable; Oxygen 3L NC %; Source Right Radial
[2020-04-22] VITALS (25 sets, daily range): BP systolic 102–167; BP diastolic 54–111; PULSE 90–146; RESP 19–37; TEMP 36.3–38.3; O2SAT 80–100; BMI 19.9
[2020-04-22 00:01] LABS: Basophils # 0.1 K/mm3 (0-0.2); Basophils % 0.3 % (0.1-2.0); Eosinophils % 0.2 % (0.1-12.0); Hematocrit 47.1 % (37.0-47.0); Hemoglobin 14.5 g/dL (12.2-16.2); Lymphocytes # 1.3 K/mm3 (0.7-4.5); Lymphocytes % 7.9 % (10-50); Mean Corpuscular HGB Conc 30.8 g/dL (31.8-35.4); Mean Corpuscular Hemoglobin 30.6 pg (27.0-31.2); Mean Corpuscular Volume 99.3 fl (81-99); Mean Platelet Volume 9.1 fl (7.4-10.4); Monocytes # 0.5 K/mm3 (0.1-1.0); Monocytes % 2.9 % (1.7-9.3); Neutrophils # 14.1 K/mm3 (1.8-7.8); Neutrophils % 88.7 % (37.0-80.0); Platelet Count 576 K/mm3 (142-424); Red Blood Count 4.75 M/mm3 (4.20-5.40); White Blood Count 15.9 K/mm3 (4.8-10.8)
[2020-04-22 00:04] LABS: MANUAL DIFFERENTIAL MANUAL DIFFERENTIAL (MANUAL DIFF)
[2020-04-22 00:09] LABS: Microscopic, Urine URINE MICROSCOPIC (MICROSCOPIC)
[2020-04-22 00:15] LABS: Adenovirus,PCR Not Detected (NotDetected); Bordetella Pertussis Not Detected (NotDetected); Chlamydophila Pneumoniae, PCR Not Detected (NotDetected); Coronavirus 229E Not Detected (NotDetected); Coronavirus NL63 Not Detected (NotDetected); Coronavirus OC43 Not Detected (NotDetected); Coronovirus HKU1,PCR Not Detected (NotDetected); Human Metapneumovirus Not Detected (NotDetected); Influenza A, PCR Not Detected (NotDetected); Influenza AH1, 2009 Not Detected (NotDetected); Influenza AH1, PCR Not Detected (NotDetected); Influenza AH3,PCR Not Detected (NotDetected); Influenza B, PCR Not Detected (NotDetected); Mycoplasma Pneumoniae, PCR Not Detected (NotDetected); Parainfluenza 1, PCR Not Detected (NotDetected); Parainfluenza 2, PCR Not Detected (NotDetected); Parainfluenza 3, PCR Not Detected (NotDetected); Parainfluenza 4, PCR Not Detected (NotDetected); Respiratory Syncytial Virus Not Detected (NotDetected); Rhinovirus/Enterovirus Not Detected (NotDetected)
[2020-04-22 00:18] LABS: Alanine Aminotransferase 15 U/L (12-78); Albumin Level 4.3 g/dl (3.5-5.0); Albumin/Globulin Ratio 1.2 (1.1-1.8); Alkaline Phosphatase 164 U/L (38-126); Anion Gap 22.3 mEq/L (5-15); Aspartate Amino Transferase 71 U/L (14-36); Bilirubin,Total 0.7 mg/dl (0.2-1.3); Blood Urea Nitrogen 30 mg/dl (7-17); Calcium 10.4 mg/dl (8.4-10.2); Carbon Dioxide 27 mmol/L (22.0-30.0); Chloride 94 mmol/L (98-107); Creatinine Clearance Estimated 43 mL/min (50-200); Estimated Glomerular Filt Rate 35 ml/min (>60); GFR (African American) 42 ML/MIN (>60); Globulin 3.5 g/dL (1.3-3.2); Glucose 282 mg/dl (74-100); Potassium 4.3 mmoL/L (3.5-5.1); Sodium 139 mmol/L (136-145); Total Protein,Serum 7.8 g/dl (6.3-8.2)
[2020-04-22 00:23] LABS: C-Reactive Protein 39.2 mg/L (0-4)
[2020-04-22 00:29] LABS: NT Pro Brain Natriuretic Pep. 5050 pg/mL (0-125)
[2020-04-22 00:33] LABS: Procalcitonin 0.469 ng/mL (0.0-2.0)
--- NOTE | 2020-04-22 00:34 | HMH.EDSOB ---
ED Disposition Clinical Impression: COVID-19 virus detected, Acute exacerbation of chronic obstructive airways disease, Chronic pain syndrome, Renal insufficiency, Elevated troponin, Elevated brain natriuretic peptide (BNP) level Respiratory failure with hypercapnia Qualifiers: Chronicity: acute on chronic Qualified Code(s): J96.22 - Acute and chronic respiratory failure with hypercapnia UTI (urinary tract infection) Qualifiers: Urinary tract infection type: site unspecified Hematuria presence: without hematuria Qualified Code(s): N39.0 - Urinary tract infection, site not specified Disposition: Admitted As Inpatient Condition on Discharge: Serious Referrals: Vargas Greene MD [Primary Care Provider] - - Critical Care Critical Care Time: No Attestation: On 04/21/20, the high probability of a clinically significant, sudden or life threatening deterioration of the following system(s) required my full and direct attention, intervention and personal management. The time I documented below is in addition to time spent performing reported procedures but includes the following listed in this critical care notation. Medical Decision Making - Medical Records Medical records reviewed: Yes: I reviewed the patient's medical records. - [place] Inquiry Pt receiving controlled substance: No Vital Signs: 04/21/20 23:32 04/22/20 01:49 04/22/20 02:59 Temperature 101.5 F H 101.0 F H Temperature Source Rectal Rectal Pulse Rate [Right] 150 H 138 H Respiratory Rate 36 H 28 H Blood Pressure [Right Arm] 116/95 H 123/81 Blood Pressure Mean [Right Arm] 102 95 02 Sat by Pulse Oximetry 83 L 80 L Oxygen Delivery Method Room Air BiPAP 04/22/20 03:24 04/22/20 04:00 Temperature 100.7 F H Temperature Source Rectal Pulse Rate [Right] 135 H 135 H Respiratory Rate 28 H 28 H Blood Pressure [Right Arm] 123/81 150/100 H Blood Pressure Mean [Right Arm] 95 116 02 Sat by Pulse Oximetry 95 96 Oxygen Delivery Method BiPAP BiPAP - Lab Data Lab results reviewed: Yes: I reviewed the patient's lab results. Lab Results 04/21/20 23:38: Specimen Source Right radial, O2 % 3l nc, ABG pH 7.33 L, ABG pCO2 45.6 H, ABG pO2 42.0 L, ABG HCO3 23.4, ABG Total CO2 24.8, ABG O2 Saturation 79 L*, ABG Base Excess -2.6 L, Robert Test Acceptable 04/21/20 23:40: NT-Pro-B Natriuret Pep 5050 H 04/21/20 23:40: Troponin I 0.14 H 04/21/20 23:45: WBC 15.9 H, RBC 4.75, Hgb 14.5, Hct 47.1 H, MCV 99.3 H, MCH 30.6, MCHC 30.8 L, RDW 15.0, Plt Count 576 H, MPV 9.1, Neut % (Auto) 88.7 H, Lymph % (Auto) 7.9 L, [place] % (Auto) 2.9, Eos % (Auto) 0.2, Baso % (Auto) 0.3, Neut # (Auto) 14.1 H, Lymph # (Auto) 1.3, [place] # (Auto) 0.5, Eos # (Auto) 0.0, Baso # (Auto) 0.1, Total Counted 100, Neutrophils % (Manual) 82 H, Band Neutrophils % 9.0 H, Lymphocytes % (Manual) 6 L, Monocytes % (Manual) 3, Platelet Estimate Slight increase, RBC Morphology Not Reportable, Hypochromasia 1+, Macrocytosis 1+, ESR 10 04/21/20 23:45: Sodium 139, Potassium 4.3, Chloride 94 L, Carbon Dioxide 27, Anion Gap 22.3 H, BUN 30 H, Creatinine 1.50 H, Estimated Creat Clear 43, Estimated GFR 35 L, Est GFR ( Amer) 42 L, Glucose 282 H, Calcium 10.4 H, Total Bilirubin 0.7, AST 71 H, ALT 15, Alkaline Phosphatase 164 H, C-Reactive Protein 39.2 H, Total Protein 7.8, Albumin 4.3, Globulin 3.5 H, Albumin/Globulin Ratio 1.2, Procalcitonin 0.469 04/22/20 00:00: Urine Color Yellow, Urine Appearance Cloudy, Urine pH 6.0, Ur Specific [place] 1.025, Urine Protein 1+, Urine Glucose (UA) Negative, Urine Ketones Trace, Urine Blood Trace-i, Urine Nitrate Positive, Urine Bilirubin Negative, Urine Urobilinogen 0.2, Ur Leukocyte Esterase 2+ A, Urine RBC 3-5, Urine WBC Tntc 04/22/20 00:00: Chlamy pneumoniae PCR Not detected, Adenovirus (PCR) Not detected, B. pertussis DNA (PCR) Not detected, Coronavirus OC43 (PCR) Not detected, Coronavirus HKU1 (PCR) Not detected, Coronavirus 229E (PCR) Not detected, SARS-CoV-2 (PCR) Detected A, Cor
--- NOTE | 2020-04-22 00:50 | XR_ITS ---
PROCEDURE: XR CHEST PORTABLE CLINICAL HISTORY: soa Shortness of air, Covid19 infection COMPARISON: CT CHW CT CHEST W/ CONTRAST from 12/18/2014 CR XR CHEST AP from 03/19/2020 CR XR CHEST PORTABLE from 03/19/2020 CR XR CHEST PORTABLE from 03/26/2020 FINDINGS: The cardiomediastinal silhouette and pulmonary vascularity are within normal limits. There is increased density in the retrocardiac region on the left consistent with atelectatic change and or infiltrate. Old fracture of the right 7th rib. Chronic opacity left mid lungs consistent with scarring. IMPRESSION: Left lower lobe infiltrate and/or atelectatic change Dictated by: Robert Dennis MD 04/22/2020 06:07 Robert Dennis MD in [facility] 04/22/2020 06:07
[2020-04-22 00:55] LABS: Erythrocyte Sedimentation Rate 10 mm/hr (0-30)
[2020-04-22 01:08] LABS: Appearance,Urine CLOUDY (Clear); Bilirubin,Urine Negative (Negative); Blood, Urine TRACE-I (Negative); Color,Urine YELLOW (Yellow); Glucose,Urine (UA) Negative (Negative); Ketones,Urine TRACE (Negative); Leukocyte Esterase,Urine 2+ (Negative); Nitrate,Urine POSITIVE (Negative); Protein,Urine 1+ (Negative); Specific Gravity, Urine 1.025 (1.005-1.030); Urobilinogen,Urine 0.2 EU/dl (0.2)
[2020-04-22 01:21] LABS: WBC,Urine TNTC #/hpf (0-3)
[2020-04-22 01:28] LABS: Hypochromasia 1+; Lymphocytes % 6 % (10-50); Macrocytosis 1+; Monocytes % 3 % (2-9); Neutrophils % 82 % (42-76); Platelet Estimate Slight Increase; Total Cells Counted 100
[2020-04-22 01:48] LABS: ABG Base Excess -5.9 mmol/L (-2.4-2.3); ABG HCO3 21.4 mmhg (22.0-26.0); ABG Oxygen Saturation 99 % (90-100); ABG PH 7.24 mmol/L (7.35-7.45); ABG PO2 137.1 mmhg (80-100)
[2020-04-22 01:50] LABS: Oxygen 100 %
[2020-04-22 01:51] LABS: Allen's Test Acceptable; Source Right Radial
[2020-04-22 01:52] LABS: ABG PCO2 50.9 mmhg (35.0-45.0)
[2020-04-22 02:01] LABS: Lactic Acid 4.9 mmol/L (0.7-2.1)
--- NOTE | 2020-04-22 02:15 | PC.NURSE ---
[facility] has been updated on pt status at this time
[2020-04-22 02:18] LABS: Troponin I 0.14 ng/ml (0.00-0.034)
[2020-04-22 02:55] LABS: Coronavirus 19, PCR Detected (NotDetected)
--- NOTE | 2020-04-22 02:59 | PC.NURSE ---
pt desatting respiratory called to adjust bipap
[2020-04-22 04:41] LABS: Reflex Lactic Add Lactic Reflex
[2020-04-22 05:28] LABS: Troponin I 0.34 ng/ml (0.00-0.034)
--- NOTE | 2020-04-22 06:05 | PC.NURSE ---
Transported Pt from ED with RN to ICU. Pt placed on Non Re-breather for transport and remained stable for the duration of the transport. Placed on BiPAP upon arrival to the ICU.
--- NOTE | 2020-04-22 06:53 | PC.NURSE ---
Pt arrived to floor hypertensive and Tachycardic. Temp of 100.3 R. Extremities are cool. Pt is currently on Bipap currently @ 70%. notified of pt condition. Orders carified with . NS @ 100 m/hr. May give tylenol suppository.
[2020-04-22 08:06] LABS: ABG Base Excess -2.2 mmol/L (-2.4-2.3); ABG HCO3 24.8 mmhg (22.0-26.0); ABG Oxygen Saturation 95 % (90-100); ABG PH 7.27 mmol/L (7.35-7.45); ABG PO2 80.3 mmhg (80-100); ABG TCO2 26.5 mmhg (23-27)
[2020-04-22 08:07] LABS: Oxygen 70 %
[2020-04-22 08:08] LABS: Allen's Test Patient Unable; Source Left Radial; Vent Rate 20
[2020-04-22 08:11] LABS: ABG PCO2 55.3 mmhg (35.0-45.0)
[2020-04-22 09:19] LABS: Alanine Aminotransferase 15 U/L (12-78); Albumin Level 4.3 g/dl (3.5-5.0); Albumin/Globulin Ratio 1.2 (1.1-1.8); Alkaline Phosphatase 154 U/L (38-126); Anion Gap 28.3 mEq/L (5-15); Aspartate Amino Transferase 81 U/L (14-36); Bilirubin,Total 0.7 mg/dl (0.2-1.3); Blood Urea Nitrogen 29 mg/dl (7-17); Calcium 10.4 mg/dl (8.4-10.2); Carbon Dioxide 22 mmol/L (22.0-30.0); Chloride 94 mmol/L (98-107); Creatinine Clearance Estimated 27 mL/min (50-200); Estimated Glomerular Filt Rate 35 ml/min (>60); GFR (African American) 42 ML/MIN (>60); Globulin 3.5 g/dL (1.3-3.2); Glucose 251 mg/dl (74-100); Potassium 4.3 mmoL/L (3.5-5.1); Sodium 140 mmol/L (136-145); Total Protein,Serum 7.8 g/dl (6.3-8.2)
--- NOTE | 2020-04-22 10:15 | CA_ITS ---
APPROVED REPORT EXAM: Limited 2D Echocardiogram Automatic Corn Grinder Operator: RT Erickson(R) Ht: 4 ft 11 in Wt: 102lbs BSA: 1.39 BP: 110/70 mmHg Indications: COVID +, Pneumonia, rapid AFIB, respiratory failure, anxiety, CHF, CAD, GERD, HTN, hyperlipidemia. Limited echo due to poor visualization secondary to lung interference. Patient was uncooperative throughout the exam. Technically difficult study. M-Mode Dimensions RVDd 2.43 cm (0.9-2.6) LVDd 1.61 cm (3.5-5.7) LVDs 1.29 cm (3.5-5.7) IVSd 1.61 cm (0.6-1.1) PWd 0.54 cm (0.6-1.1) EF (Teich) 43.80% FS 19.90% EDV (Teich) 7.30 mL ESV (Teich) 4.10 mL Left Ventricle Technically difficult and very inadequate study, this study is inadequate for assessment of valves and its functions, repeat study with better technique is recommended if clinically indicated, probably preserved left ventricular systolic function. Visually estimated ejection fraction 55% with no obvious regional wall motion abnormality in the obtained views. Right Ventricle Right atrium and right ventricle mildly enlarged with normal contractility. Aortic Valve Aortic valve not visualized Mitral Valve Mitral valve is very limited views, there does not appear to be mitral stenosis, mitral regurgitation cannot be assessed Tricuspid Valve Tricuspid valve is poorly visualized. Pulmonic Valve Pulmonic valve is poorly visualized. Great Vessels Aortic root is not seen. Pericardium No significant pericardial effusion noted Conclusion 1. Very poor study as described above, repeat study with better technique is recommended 2. Probably preserved left ventricular systolic function. Visually estimated ejection fraction 45% with no obvious regional wall motion abnormality. 3. No significant pericardial effusion noted. Electronically signed by : Trenton Davis, 04/23/2020 05:14:39
--- NOTE | 2020-04-22 10:19 | SW/DCPLANNER ---
Addendum entered by Xiomy Prather 04/24/20 11:23: I have informed [place] at [place] regarding patient expiring. Original Note: This patient currently resides at [facility]. I have spoke with [place] at [place] and she has stated that patient is [facility] level of care. I will follow up with [place] once patient is medically stable for discharge.
--- NOTE | 2020-04-22 10:24 | HMH.CNCARD ---
History of Present Illness Consult date: 04/22/20 Requesting physician: Vargas Greene Consult reason: shortness of breath Chief complaint: Covid, shortness of breath Additional Medical History:: 1. Acute exacerbation of Chronic Obstructive Pulmonary disease. (04/22/20) a. Bipap 2. Covid -19 positive 3. Elevated BNP (5005) (04/22/20) 4. Sinus tachycardia (04/22/20) a. HR 130-140's. 5. Parsoxymal atrial fibrillation a. A/C Xarelto b. Rate control- Bisoprolol 6. Elevated troponin (04/22/20) 7. Echo (03/17) EF 50% with no wall abnormality. History of present illness: 65-year-old female presented to [facility] ED with increased shortness of breath. Patient is a resident of [facility] nursing facility. shelter stated patient has had altered mental status change and increased shortness of breath throughout the night. Patient had been running a fever. Patient was admitted inpatient due to positive Covid 19 with mental status change. Patient also noted to have acute exacerabation of COPD , requiring BiPAP. COVID-19 protocol is being followed and managed by PCP. Patient is unable to answer simple questions at this time due to increased shortness of breath and altered mental status change. Patient noted with rapid respirations and rapid heart rate. environmental monitoring technician reveals sinus tachycardia with no ST changes with a heart rate of 130s to 140s. Patient does have history of atrial fibrillation. Patient does take Xarelto 20 mg daily and bisoprolol 10 mg daily for rate control. Patient noted with increased BNP over 5000. Serial cardiac enzymes were noted as elevated. Uncertain at this time as to whether patient has had a heart catheterization. Patient noted with accelerated BP at this time. Initial ED work-up revealed platelet count 576, BUN 30 and creatinine 1.50. Echo from 02/2020 revealed EF 50% with no wall abnormality with mild MR and TR. Will obtain echocardiogram today due to elevated troponins and sinus tachycardia. Discussed plan of care with Dr. Hadley. Will hold off on catheterization at this time due to patient's respiratory status and mental status changes. We will start diltiazem 10 mg/h drip due to sinus tachycardia/ intermittent atrial fib. Start Xarelto 20 mg daily for PAF. Start bisoprolol 10 mg p.o. for better heart rate and BP control. Management of Covid and COPD deferred to PCP and pulmonology. Depending on echocardiogram results, may recommend further medication or treatment changes. Thank you for letting cardiology participate in the care of this patient. [facility] History I have reviewed the patient's past medical history: Yes Medical History: Reports:: Anxiety, Arrhythmia, Atrial Fibrillation, Congestive Heart Failure, Chronic Obstructive Pulmonary Disease (COPD), Coronary Artery Disease, Dementia, Depression, Gastroesophageal Reflux Disease(GERD), Home Oxygen, Hyperlipidemia, Hypertension, Lung Disease, Migraine, Osteoporosis Denies:: Cancer, Diabetes Mellitus Type 1, Diabetes Mellitus Type 2, Internal Pacemaker, MRSA, Seizures *Have you ever received a pneumonia vaccine?: No *Have you received a flu vaccine this season?: Yes Other Medical History: Reports: Anemia, Arthritis, Cataracts, Fibromyalgia, Osteoporosis. Denies: Blood Transfusion Reaction Laterality Cases: Right: Total Hip Replacement Other Surgeries: Yes: No Previous Surgery, Cholecystectomy, Colonoscopy, , Hernia Repair, Hysterectomy-Total. No: Pacemaker Amputation: No Fractures: No - *Social History Smoking Status: Smoker, status unknown Tobacco Type: cigarettes # Packs/Day (cigarettes): 0 #Yrs smoked (if former smoker): 40 Alcohol Intake: never Alcohol Intake Frequency:: other Substance Use Type: marijuana *Occupational Status:: other Housing: custodial Household Members: caregiver *Travel in the last 8 weeks: None - Psychiatric History Pschychiatric History:: Reports:: Anxi
--- NOTE | 2020-04-22 10:31 | PC.NURSE ---
Dr. Greene and Dr. Murry both aware of pt's vital signs. Cardiology also consulted on pt.
--- NOTE | 2020-04-22 10:45 | HMH.PHAVTE ---
[facility] Pharmacy VTE Monitoring - Patient Demographics Admission date: 04/22/20 Report Date: 04/22/20 Time: 10:45 Allergies/Adverse Reactions: Patient Allergies tuberculin, purified protein deriva Allergy (Verified 04/22/20 07:54) Unknown allergy reaction Height: 1.52 m Weight: 46.323 kg Patient Problems: Current Active Problems Acute exacerbation of chronic obstructive airways disease (Acute) Chronic pain syndrome (Chronic) Hypercapnic respiratory failure (Acute) COVID-19 virus detected (Acute) UTI (urinary tract infection) (Acute) Renal insufficiency (Acute) Elevated troponin (Acute) Elevated brain natriuretic peptide (BNP) level (Acute) - VTE Risk Labs: VTE Related Lab Results Hgb 14.5 g/dL (12.2-16.2) 04/21/20 23:45 Hct 47.1 % (37.0-47.0) H 04/21/20 23:45 Plt Count 576 K/mm3 (142-424) H 04/21/20 23:45 BUN 29 mg/dl (7-17) H 04/22/20 05:00 Creatinine 1.50 mg/dl (0.52-1.04) H 04/22/20 05:00 Estimated Creat Clear 27 mL/min (50-200) 04/22/20 05:00 Was VTE Risk Assessment Performed: Yes Clinical Trial Participant: No - Prophylaxis VTE Prophylaxis Ordered?: Yes Types of VTE Prophylaxis: TEDS Knee High, Pharmacological Pharmacologic Type: Enoxaparin
--- NOTE | 2020-04-22 10:58 | HMH.PULMCON ---
*Admission Date: 04/22/20 *Reason for consult:: Acute hypoxic respiratory failure, COVID-19 pneumonia *History of present illness: Initially 65-year-old male with a prior diagonal COPD on triple inhaler therapy at home, CHF on diuretic therapy at home presented to the hospital with worsening respiratory failure needing BiPAP to maintain oxygen saturations and pulmonary was called for further management. [facility] History Medical History: Reports:: Anxiety, Arrhythmia, Atrial Fibrillation, Congestive Heart Failure, Chronic Obstructive Pulmonary Disease (COPD), Coronary Artery Disease, Dementia, Depression, Gastroesophageal Reflux Disease(GERD), Home Oxygen, Hyperlipidemia, Hypertension, Lung Disease, Migraine, Osteoporosis Denies:: Cancer, Diabetes Mellitus Type 1, Diabetes Mellitus Type 2, Internal Pacemaker, MRSA, Seizures *Have you ever received a pneumonia vaccine?: No *Have you received a flu vaccine this season?: Yes Other Medical History: Reports: Anemia, Arthritis, Cataracts, Fibromyalgia, Osteoporosis. Denies: Blood Transfusion Reaction Laterality Cases: Right: Total Hip Replacement Other Surgeries: Yes: No Previous Surgery, Cholecystectomy, Colonoscopy, , Hernia Repair, Hysterectomy-Total. No: Pacemaker Amputation: No Fractures: No - *Social History Smoking Status: Smoker, status unknown Tobacco Type: cigarettes # Packs/Day (cigarettes): 0 #Yrs smoked (if former smoker): 40 Alcohol Intake: never Alcohol Intake Frequency:: other Substance Use Type: marijuana *Occupational Status:: other Housing: long term Household Members: caregiver *Travel in the last 8 weeks: None - Psychiatric History Pschychiatric History:: Reports:: Anxiety, Depression Family Hx:: Unable to obtain ROS - Card Reports leg swelling - Resp Respiratory: Reports shortness of breath, Reports chest congestion, Reports cough, Reports dyspnea Meds Home Medications Medication Instructions Recorded Confirmed Type Duloxetine HCl [Cymbalta] 120 mg PO DAILY 04/13/17 04/22/20 History Baclofen 20 mg PO BID 07/06/17 04/22/20 History Docusate Sodium [Colace 250mg 250 mg PO BID 08/02/17 04/22/20 History capsule] Torsemide [Demadex 20mg tablet] 20 mg PO DAILY 08/02/17 04/22/20 History ondansetron HCL [Zofran 4mg Tab*] 4 mg PO Q4-6H PRN 08/02/17 04/22/20 History morphine 30 mg capsule,extended 30 mg PO BID cap 08/02/18 04/22/20 History release 24 hr multiphase Fluticasone/Vilanterol [Breo 1 puff IH DAILY 01/22/20 04/22/20 History Ellipta 100-25 Mcg INH] Folic Acid 0.4 mg PO DAILY 01/22/20 04/22/20 History Acetaminophen [Acetaminophen Extra 500 mg PO Q6HP PRN 01/23/20 04/22/20 History Strength] Albuterol Sulfate [Ventolin HFA 2 puffs IH Q4-6H PRN 01/23/20 04/22/20 History Inhaler] Ascorbate Calcium [Vitamin C] 500 mg PO DAILY 01/23/20 04/22/20 History Bisacodyl [Bisacodyl 10mg Supp] 10 mg RC DAILY PRN 01/23/20 04/22/20 History Cyanocobalamin (Vitamin B-12) 100 mcg PO DAILY 01/23/20 04/22/20 History [Vitamin B-12] Fluorometholone [FML 0.1% 1 drp OP BIDP PRN 01/23/20 04/22/20 History opthalmic susp 5mL] Lactulose [Lactulose 10gm/15ml 10 gm PO DAILY PRN 01/23/20 04/22/20 History Oral Soln] Mag Hydrox/Aluminum Hyd/Simeth 30 ml PO Q6HP PRN 01/23/20 04/22/20 History [Almacone Suspension] Methylcellulose [Fiber Laxative] 500 mg PO BID 01/23/20 04/22/20 History Omeprazole [Omeprazole 40mg 40 mg PO DAILY 01/23/20 04/22/20 History Capsule] Propylene Glycol [Systane Balance] 1 drp OP QID 01/23/20 04/22/20 History Sennosides [Senna] 8.6 mg PO BID 01/23/20 04/22/20 History polyethylene glycoL 3350 17 gm PO DAILY PRN 01/23/20 04/22/20 History [Polyethylene Glycol 3350] Bisoprolol Fumarate [Bisoprolol 5 mg PO DAILY 01/27/20 04/22/20 History 5mg Tablet] Simethicone [Gas Relief] 160 mg PO Q6HP PRN 01/27/20 04/22/20 History hydrOXYzine HCL [Hydroxyzine HCl] 25 mg PO HS 01/27/20 04/22/20 History Ipratropium/Albuterol S
[2020-04-22 11:24] LABS: Troponin I 0.33 ng/ml (0.00-0.034)
[2020-04-22 11:41] LABS: ABG HCO3 24.7 mmhg (22.0-26.0); ABG PCO2 50.4 mmhg (35.0-45.0); ABG PH 7.31 mmol/L (7.35-7.45)
[2020-04-22 11:42] LABS: ABG Oxygen Saturation 98 % (90-100); ABG TCO2 26.3 mmhg (23-27); Allen's Test Patient Unable; Oxygen 70% %; Pressure Support 15/8
--- NOTE | 2020-04-22 11:46 | HMH.PHAINT ---
home medication completed using mar from [facility]
[2020-04-22 12:04] LABS: POC Glucose,Bedside 244 (70-110)
[2020-04-22 12:48] LABS: D-Dimer 1.97 ug/mL (0.0-0.5)
--- NOTE | 2020-04-22 14:28 | PC.NURSE ---
notified lab to come picks up labs
[2020-04-22 15:27] LABS: Hemoglobin A1C 5.4 % (4.0-6.0)
--- NOTE | 2020-04-22 15:50 | HMH.HP ---
*Admission Date: 04/22/20 <Chelo Wesley - 04/22/20 16:38> *Chief complaint: Altered mental status and fever <Chelo Wesley - 04/22/20 16:38> *History of present illness: Ms. Cardenas is a 65-year-old female resident of [facility] with an extensive medical history to include end-stage COPD, chronic respiratory failure under hospice care, GERD, anxiety, depression, atrial fibrillation, TIA, failure to thrive, fibromyalgia, migraine headaches, anemia, old right hip fracture in 2013 without surgical intervention, chronic pain syndrome, and polypharmacy who was sent to [facility] emergency room for evaluation of altered mental status and fever. Patient at this time is unable to give history of events. Information obtained from records. In the emergency room with evaluation patient was found to have a left lower lobe infiltrate on the chest x-ray. Laboratory data revealed white blood cell count of 15,900 and hemoglobin of 14.5 hematocrit of 41.7. Blood chemistries revealed sodium of 139 and potassium of 4.3. BUN was 30 and creatinine 1.5. Lactic acid was 4.9 troponin I's were elevated times three at 0.14, 0.34, and 0.33. Patient Covid PCR was detected. Urine showed positive nitrates, trace ketones and 2+ leuk esterase with too numerous to count WBCs. She was given fluid bolus in the emergency room along with acetaminophen, dexamethasone 10 mg IV, 40 of Lasix IV and morphine 2 mg IV. She was also started on Rocephin. She was then admitted to the Covid unit with routine Covid orders to include remdesivir. She was also started on Lovenox. ABGs on admission showed pH of 7.33 PCO2 of 45.6 PO2 of 42 and a bicarb of 23 after on BiPAP 70% pH was 7.31 PCO2 of 50.4 PO2 of 96 and bicarb of 24.7 which showed improvement on the BiPAP. Upon arrival to the floor in the Covid unit she was noted to be hypertensive and tachycardiac with a fever of 100.3. She was on BiPAP at this time. She was seen by cardiology who started on her on an esmolol drip in addition to her Cardizem drip. BNP was noted to be elevated at 5050. Pulmonology also saw her he felt her respiratory failure was likely a combination of COPD exacerbation along with COVID-19 pneumonia and CHF exacerbation. She was started on duo nebs every 4 hours along with budesonide every 12 hours scheduled. She was to remain on BiPAP at this point. Pulmonary note as follows: Assessment and Plan for all problems:: #Acute hypoxic respiratory failure: #COVID-19 pneumonia: 64 with a history of CHF, COPD presented to the hospital with worsening respiratory failure needing BiPAP supplementation to maintain oxygen saturations. Hemodynamically stable. Afebrile. WBC elevated to 15.9. Patient also have elevated creatinine 1.50. BNP elevated at 5050. Troponin trending up. Chest x-ray showed questionable lower lobe infiltrates. COVID-19 PCR positive. ABG showed evidence of respiratory acidosis. Patient also found to have lower extremity cast. Etiologies patient's respiratory failure likely combination of COPD exacerbation, COVID-19 pneumonia and CHF exacerbation. Plan: - Sputum Cultures - Nasal MRSA Culture - Follow with D-dimer - Continue ceftriaxone and azithromycin for community-acquired pneumonia - Continue remdesivir and dexamethasone for COVID-19 pneumonia - Initiate DuoNebs every 4 hours scheduled and budesonide every 12 hours scheduled - Continue BiPAP with O2 saturation goal of 88 to 92%, wean oxygen as tolerated. - Follow with cardiology recommendations for volume optimization and troponinemia management At the time of this exam patient is wide-awake. She verbalized that she is having pain. To note patient was hospitalized - for an IMN of the right tibia. She initially had a walking boot on but due to ankle drifting she was placed in a short leg cast for better alignment. She was made nonweightbearing. Patient usually does not walk any way but has performed indepe
[2020-04-23] VITALS (18 sets, daily range): BP systolic 100–192; BP diastolic 63–119; PULSE 100–125; RESP 19–29; TEMP 35.6–37.8; O2SAT 90–98
--- NOTE | 2020-04-23 07:00 | PC.NURSE ---
Pt has not slept well this shift. She has been restless at times. Has asked for water to drink. Did so without difficulty. Pt remains on Bipap @ 40%. VS are currently stable. NS is infusing @ 100 ml/hr. Esmolol is infusing @ 50 mcg/kg/min. Pharmacy was notified due to IV infiltration with esmolol in peripheral line. Ice pack placed per pharmacy. Pharmacy is following up with pt. No other concerns. Will continue to monitor.
--- NOTE | 2020-04-23 08:10 | HMH.ACPN2 ---
Internal Medicine - PN: Subj *Date: 04/23/20 *Time: 08:10 Interval history: No acute events overnight. She is more alert today and answers questions appropriately. She complains of feeling thirsty. Blood pressure and heart rate are stable on IV diltiazem and esmolol. Exam Vital signs and Labs for Last 24 Hours: Temp Pulse Resp BP Pulse Ox 97.1 F L 105 H 29 H 134/94 H 96 04/23/20 12:00 04/23/20 12:43 04/23/20 12:00 04/23/20 12:00 04/23/20 12:00 Laboratory Results - last 24 hr 04/22/20 14:25: Hemoglobin A1c 5.4 04/23/20 09:40: WBC 24.9 H* D, RBC 4.23, Hgb 12.8, Hct 42.4, MCV 100.3 H, MCH 30.2, MCHC 30.1 L, RDW 15.7, Plt Count 548 H, MPV 10.8 H, Neut % (Auto) 65.7, Lymph % (Auto) 31.9, Baxter % (Auto) 1.6 L, Eos % (Auto) 0.0 L, Baso % (Auto) 0.8, Neut # (Auto) 16.4 H, Lymph # (Auto) 8.0 H, Baxter # (Auto) 0.4, Eos # (Auto) 0.0, Baso # (Auto) 0.2, Total Counted 100, Neutrophils % (Manual) 86 H, Band Neutrophils % 3.0, Lymphocytes % (Manual) 6 L, Monocytes % (Manual) 4, Metamyelocytes % 1.0, Platelet Estimate Slight increase, Macrocytosis 1+ 04/23/20 11:30: Sodium 146 H, Potassium 4.1, Chloride 114 H, Carbon Dioxide 22, Anion Gap 14.1, BUN 35 H, Creatinine 0.70 D, Estimated Creat Clear 41, Estimated GFR 84, Est GFR ( Amer) 102 D, Glucose 91, Calcium 8.2 L D, Total Bilirubin 0.6, AST 456 H* D, ALT 135 H D, Alkaline Phosphatase 99, Total Protein 5.8 L D, Albumin 2.9 L D, Globulin 2.9, Albumin/Globulin Ratio 1.0 L I & O for Last 24 hours: Intake & Output 04/21/20 04/22/20 04/23/20 04/24/20 11:59 11:59 11:59 11:59 Intake Total 1000 / 1000 1139 / 1139 Output Total 500 / 500 425 / 425 Balance 500 / 500 714 / 714 Weight 102 lb 2 oz 102 lb 4 oz Microbiology Reports for the Last 24 Hours: Microbiology 04/22/20 00:00 Urine,Clean Catch Urine Culture - Preliminary Narrative: She continues on BiPAP with satisfactory O2 saturations. Color is adequate. She is a bit tachypneic but otherwise no acute distress. Breath sounds are generally diminished. No wheezes. Heart is slightly tachycardic but regular. Abdomen is soft and nondistended with no apparent tenderness. Extremities show no edema of the left leg. She has a cast on the right lower leg. Assessment and Plan (1) Pneumonia due to COVID-19 virus Status: Acute Category: Medical Code(s): U07.1 - COVID-19; J12.82 - Pneumonia due to coronavirus disease 2019 (2) Hypercapnic respiratory failure Status: Acute Qualifiers: Chronicity: acute on chronic Qualified Code(s): J96.22 - Acute and chronic respiratory failure with hypercapnia Category: Medical Code(s): J96.92 - Respiratory failure, unspecified with hypercapnia (3) Acute exacerbation of chronic obstructive airways disease Start date: 04/23/20 Start time: 10:00 Status: Acute Category: Medical Code(s): J44.1 - Chronic obstructive pulmonary disease with (acute) exacerbation (4) Anemia Status: Acute Qualifiers: Anemia type: unspecified type Qualified Code(s): D64.9 - Anemia, unspecified Category: Medical Code(s): D64.9 - Anemia, unspecified (5) HTN (hypertension) Status: Chronic Category: Medical Code(s): I10 - Essential (primary) hypertension (6) Chronic atrial fibrillation Status: Chronic Category: Medical Code(s): I48.2 - Chronic atrial fibrillation (7) Chronic pain syndrome Status: Chronic Category: Medical Code(s): G89.4 - Chronic pain syndrome (8) Tobacco use disorder Status: Chronic Category: Medical Code(s): F17.200 - Nicotine dependence, unspecified, uncomplicated (9) UTI (urinary tract infection) Status: Acute Qualifiers: Urinary tract infection type: site unspecified Hematuria presence: without hematuria Qualified Code(s): N39.0 - Urinary tract infection, site not specified Category: Medical Code(s): N39.0 - Urinary tract infection, site not specified (10) Renal insufficienc
--- NOTE | 2020-04-23 08:52 | HMH.PULMPN ---
Internal Medicine - PN: Subj *Date: 04/23/20 *Time: 10:38 Interval history: No acute respiratory events overnight patient admits her breathing is better than yesterday Exam - Constitutional Constitutional:: Present: comfortable - HENMT Exam HENMT: Present: normocephalic - Respiratory Exam Respiratory:: Absent: able to speak in complete sentences Comments: Bilateral clear but distant breath sounds with prolonged expiratory phase - Cardiovascular Exam Cardiac:: Present: S1, S2 - Neurological Exam Neurological: Present: alert, awake - Extremities Exam Extremities: Present: no cyanosis, no clubbing, no edema Assessment and Plan (1) Acute exacerbation of chronic obstructive airways disease Start time: 10:00 Status: Acute Category: Medical Code(s): J44.1 - Chronic obstructive pulmonary disease with (acute) exacerbation (2) Anemia Status: Acute Qualifiers: Anemia type: unspecified type Qualified Code(s): D64.9 - Anemia, unspecified Category: Medical Code(s): D64.9 - Anemia, unspecified (3) HTN (hypertension) Status: Chronic Category: Medical Code(s): I10 - Essential (primary) hypertension (4) Chronic atrial fibrillation Status: Chronic Category: Medical Code(s): I48.2 - Chronic atrial fibrillation (5) Chronic pain syndrome Status: Chronic Category: Medical Code(s): G89.4 - Chronic pain syndrome (6) Tobacco use disorder Status: Chronic Category: Medical Code(s): F17.200 - Nicotine dependence, unspecified, uncomplicated (7) COVID-19 virus detected Status: Acute Category: Medical Code(s): U07.1 - COVID-19 (8) UTI (urinary tract infection) Status: Acute Qualifiers: Urinary tract infection type: site unspecified Hematuria presence: without hematuria Qualified Code(s): N39.0 - Urinary tract infection, site not specified Category: Medical Code(s): N39.0 - Urinary tract infection, site not specified (9) Renal insufficiency Status: Acute Category: Medical Code(s): N28.9 - Disorder of kidney and ureter, unspecified (10) Elevated troponin Status: Acute Category: Medical Code(s): R77.8 - Other specified abnormalities of plasma proteins (11) Elevated brain natriuretic peptide (BNP) level Status: Acute Category: Medical Code(s): R79.89 - Other specified abnormal findings of blood chemistry - Assessment and plan all Dx Assessment and Plan for all problems:: #Acute hypoxic respiratory failure: #COVID-19 pneumonia: 64 with a history of CHF, COPD presented to the hospital with worsening respiratory failure needing BiPAP supplementation to maintain oxygen saturations. Hemodynamically stable. Afebrile. WBC elevated to 15.9. Patient also have elevated creatinine 1.50. BNP elevated at 5050. Troponin trending up. Chest x-ray showed questionable lower lobe infiltrates. COVID-19 PCR positive. ABG on admission showed evidence of respiratory acidosis. Patient also found to have lower extremity cast. Plan: Etiologies patient's respiratory failure likely combination of COPD exacerbation, COVID-19 pneumonia and CHF exacerbation. Patient continued to receive ceftriaxone azithromycin for possible community-acquired pneumonia along with remdesivir and dexamethasone for COVID-19 pneumonia. D-dimer elevated 1.9 cm, closely monitor his respiratory status. Patient also getting DuoNebs every 6 hours and budesonide every 12 scheduled. We will continue. Patient BiPAP weaned to 6 L nasal cannula this morning. We will closely monitor her respiratory status. Afebrile in the last 24 hours. Blood cultures. Urine culture no growth 24 hours. Nasal MRSA culture pending. Sputum sample not collected. Cardiology is following for management of patient's atrial fibrillation and possible congestive heart failure exacerbation. Thank you for involving pulmonary in this patient care. We will continue to follow.
--- NOTE | 2020-04-23 09:39 | PC.NURSE ---
notified lab that labs are ready to be picked up
--- NOTE | 2020-04-23 10:48 | HMH.PNCARD ---
Subjective Date: 04/23/20 Time: 10:00 Principal diagnosis: Respiratory distress, Covid 19, Elevated troponins Interval history: 65-year-old female presented to [facility] with increased shortness of breath on 04/22/20. Patient was admitted inpatient due to positive Covid 19 with mental status change. Patient also noted to have acute exacerabation of COPD , requiring BiPAP. Pulmonary has been consulted and pt is now weaned off the BIPAP. Pt is tolerating 6 liters of oxygen via NC. Pulmonolgy stated that he feels her respiratory distress is more related to her COPD. COVID-19 protocol is being followed and managed by PCP. Patient is more alert but remains non-verbal. Patient noted with unlabored respirations. Lung sounds noted as diminished throughout. Pt was started on Esmolol for heart rate and BP control. Esmolol is being dosed by pharmacy. Pt had also been on Dilitazem drip for heart rate control but due to pt's peripheral line difficulty, Dilitazem was stopped. Plan for PICC line or central line is being discussed via PCP. addressograph operator reveals with no ST changes with a heart rate in the 80's-110's. Patient does have history of atrial fibrillation. 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 Uncertain as to why pt is not tolerating PO medications. Patient noted with increased BNP over 5000 on admission. Serial cardiac enzymes were noted as elevated on admission. Uncertain at this time as to whether patient has had a heart catheterization in the past. BP is becoming more stable being on the Esmolol. Slight swelling noted of the lower extremities. Pt is looking around the room with her eyes wide and moving her extremities. Echo from 02/2020 revealed EF 50% with no wall abnormality with mild MR and TR. Echocardiogram (04/22/20) revealed poor study, EF 45% with no obvious regional wall motion. Discussed plan of care with Dr. Hadley. Will hold off on catheterization at this time due to pt's severe COPD. Pt will remain on the Esmolol drip (dosed per Pharmacy) due to pt's response of controlling heart rate and BP control. Management of Covid and COPD deferred to PCP and pulmonology. Will continue to monitor and assess Pt. Please notify Cardiology if pt's health status changes. Thank you for letting cardiology participate in the care of this patient. Echo: Conclusion (04/22/20) 1. Very poor study as described above, repeat study with better technique is recommended 2. Probably preserved left ventricular systolic function. Visually estimated ejection fraction 45% with no obvious regional wall motion abnormality. 3. No significant pericardial effusion noted. Exam Vital signs and Labs for Last 24 Hours: Temp Pulse Resp BP Pulse Ox 97.0 F L 110 H 24 106/72 L 96 04/23/20 08:00 04/23/20 08:00 04/23/20 08:00 04/23/20 08:00 04/23/20 08:00 Laboratory Results - last 24 hr 04/22/20 08:45: Troponin I 0.33 H 04/22/20 11:32: O2 % 70%, ABG pH 7.31 L, ABG pCO2 50.4 H, ABG pO2 96.0, ABG HCO3 24.7, ABG Total CO2 26.3, ABG O2 Saturation 98, ABG Base Excess -2.0, Robert Test Patient unable, Vent Rate 20 on bipap 04/22/20 11:49: POC Glucose 244 H 04/22/20 12:25: D-Dimer 1.97 H 04/22/20 14:25: Hemoglobin A1c 5.4 I & O for Last 24 hours: Intake & Output 04/20/20 04/21/20 04/22/20 04/23/20 23:59 23:59 23:59 23:59 Intake Total 1811 / 1811 328 / 328 Output Total 725 / 725 200 / 200 Balance 1086 / 1086 128 / 128 Weight 160 lb 101 lb 6.602 oz 102 lb 4 oz Microbiology Reports for the Last 24 Hours: Microbiology 04/22/20 00:00 Urine,Clean Catch Urine Culture - Preliminary - Constitutional moderate distress, thin, chronically ill appearing, cooperative - *Routine HEENT Exam Head: Present: normocephalic ENT: Present: mucous membranes dry - *Routine Neck Exam Present: supple, normal carotid upstroke. Absent: full ROM, JVD, car
[2020-04-23 10:57] LABS: Basophils # 0.2 K/mm3 (0-0.2); Basophils % 0.8 % (0.1-2.0); Hematocrit 42.4 % (37.0-47.0); Hemoglobin 12.8 g/dL (12.2-16.2); Lymphocytes % 31.9 % (10-50); Mean Corpuscular HGB Conc 30.1 g/dL (31.8-35.4); Mean Corpuscular Hemoglobin 30.2 pg (27.0-31.2); Mean Corpuscular Volume 100.3 fl (81-99); Mean Platelet Volume 10.8 fl (7.4-10.4); Monocytes # 0.4 K/mm3 (0.1-1.0); Monocytes % 1.6 % (1.7-9.3); Neutrophils # 16.4 K/mm3 (1.8-7.8); Neutrophils % 65.7 % (37.0-80.0); Platelet Count 548 K/mm3 (142-424); Red Blood Count 4.23 M/mm3 (4.20-5.40); Red Cell Distribution Width 15.7 % (11.5-17.5); White Blood Count 24.9 K/mm3 (4.8-10.8)
[2020-04-23 10:59] LABS: MANUAL DIFFERENTIAL MANUAL DIFFERENTIAL (MANUAL DIFF)
[2020-04-23 11:53] LABS: Lymphocytes % 6 % (10-50); Macrocytosis 1+; Monocytes % 4 % (2-9); Neutrophils % 86 % (42-76); Platelet Estimate Slight Increase; Total Cells Counted 100
[2020-04-23 12:00] LABS: Chloride 114 mmol/L (98-107); Potassium 4.1 mmoL/L (3.5-5.1); Sodium 146 mmol/L (136-145)
[2020-04-23 12:03] LABS: Alanine Aminotransferase 135 U/L (12-78); Albumin Level 2.9 g/dl (3.5-5.0); Alkaline Phosphatase 99 U/L (38-126); Anion Gap 14.1 mEq/L (5-15); Aspartate Amino Transferase 456 U/L (14-36); Bilirubin,Total 0.6 mg/dl (0.2-1.3); Blood Urea Nitrogen 35 mg/dl (7-17); Carbon Dioxide 22 mmol/L (22.0-30.0); Creatinine Clearance Estimated 41 mL/min (50-200); Estimated Glomerular Filt Rate 84 ml/min (>60); GFR (African American) 102 ML/MIN (>60); Globulin 2.9 g/dL (1.3-3.2); Glucose 91 mg/dl (74-100); Total Protein,Serum 5.8 g/dl (6.3-8.2)
[2020-04-23 12:04] LABS: Calcium 8.2 mg/dl (8.4-10.2)
--- NOTE | 2020-04-23 18:02 | PC.NURSE ---
Addendum entered by Loly James RN 04/23/20 19:13: This note not written by Loly James RN Original Note: Vent settings are as follows: AC, TV 480, FiO2 100%. PEEP 12, R 24. was notified early in shift due to BP hypotensive. MD Botello was paged. MD Fish called between paging. MD Fish ordered 1L NS 0.9% bolus. Levophed gtt if BP continued to be hypotensive. Orders carried out. Pt was placed on Levophed gtt. He is currently at of rate of 10 mcg/min. Titrated per protocol. Fentanyl is infusing @ 100 mcg/min. Propofol @ 40 mcg/kg/min. NS @ 100 ml/hr. VS are currently stable. [facility]m[employer] bolus feedings administered @ 211 ml Q4 with flush of 60 ml. FSBS has been elevated. Insulin administered per may. No other concerns. Report given to Rocio James RN.
--- NOTE | 2020-04-23 19:17 | PC.NURSE ---
Pt has answered appropriately but has had periods of confusion. She is currently on 2L NC with O2 sats in the 90's. She remains on an esmolol drip with HR in the 90's - 110's. She has been sinus tach on telemetry with inverted t wave. Her singh is to bedside draining clear straw colored urine with approx 500 mls out this shift. Daughter has called and has been updated on plan of care. Two prn doses of morphine administered for pain with relief noted on reassessment. No questions or concerns at this time. Will continue to monitor.
[2020-04-24] VITALS (11 sets, daily range): BP systolic 113–185; BP diastolic 70–100; PULSE 110–128; RESP 20–30; TEMP 37.2; O2SAT 90–95; BMI 21.4
--- NOTE | 2020-04-24 08:30 | HMH.ACPN2 ---
Internal Medicine - PN: Subj *Date: 04/24/20 *Time: 08:30 Interval history: Weaned to NC at 2 liters yesterday and pulmonary status remained stable through the night. Still tachycardic and on Esmolol drip. Has been hypotensive this morning. Good urine output. Exam Vital signs and Labs for Last 24 Hours: Temp Pulse Resp BP Pulse Ox 99.0 F 128 H 24 113/70 94 L 04/24/20 01:00 04/24/20 08:46 04/24/20 08:46 04/24/20 08:46 04/24/20 08:46 Laboratory Results - last 24 hr 04/23/20 09:40: WBC 24.9 H* D, RBC 4.23, Hgb 12.8, Hct 42.4, MCV 100.3 H, MCH 30.2, MCHC 30.1 L, RDW 15.7, Plt Count 548 H, MPV 10.8 H, Neut % (Auto) 65.7, Lymph % (Auto) 31.9, [place] % (Auto) 1.6 L, Eos % (Auto) 0.0 L, Baso % (Auto) 0.8, Neut # (Auto) 16.4 H, Lymph # (Auto) 8.0 H, [place] # (Auto) 0.4, Eos # (Auto) 0.0, Baso # (Auto) 0.2, Total Counted 100, Neutrophils % (Manual) 86 H, Band Neutrophils % 3.0, Lymphocytes % (Manual) 6 L, Monocytes % (Manual) 4, Metamyelocytes % 1.0, Platelet Estimate Slight increase, Macrocytosis 1+ 04/23/20 11:30: Sodium 146 H, Potassium 4.1, Chloride 114 H, Carbon Dioxide 22, Anion Gap 14.1, BUN 35 H, Creatinine 0.70 D, Estimated Creat Clear 41, Estimated GFR 84, Est GFR ( Amer) 102 D, Glucose 91, Calcium 8.2 L D, Total Bilirubin 0.6, AST 456 H* D, ALT 135 H D, Alkaline Phosphatase 99, Total Protein 5.8 L D, Albumin 2.9 L D, Globulin 2.9, Albumin/Globulin Ratio 1.0 L I & O for Last 24 hours: Intake & Output 04/21/20 04/22/20 04/23/20 04/24/20 11:59 11:59 11:59 11:59 Intake Total 1000 / 1000 1139 / 1139 3465 / 3465 Output Total 500 / 500 425 / 425 Balance 500 / 500 714 / 714 3465 / 3465 Weight 102 lb 2 oz 102 lb 4 oz 109 lb 4 oz Microbiology Reports for the Last 24 Hours: Microbiology 04/22/20 00:00 Urine,Clean Catch Urine Culture - Preliminary Gram Negative Rods 04/22/20 12:40 Nose - Nasal MRSA Culture - Final 04/22/20 01:31 Blood Blood Culture - Preliminary NO GROWTH AFTER 48 HOURS 04/22/20 01:31 Blood Blood Culture - Preliminary NO GROWTH AFTER 48 HOURS Narrative: Opens eyes and will focus but unable to answer questions. Color is pale. Respirations even and unlabored. Chest with diminished BS but o/w clear. Heart is tachy but regular. Abdomen soft, nondistended. Extremities with no edema. Cast on right lower leg. Assessment and Plan (1) Pneumonia due to COVID-19 virus Start date: 04/24/20 Status: Acute Category: Medical Code(s): U07.1 - COVID-19; J12.82 - Pneumonia due to coronavirus disease 2019 (2) Acute exacerbation of chronic obstructive airways disease Start date: 04/23/20 Start time: 10:00 Status: Acute Category: Medical Code(s): J44.1 - Chronic obstructive pulmonary disease with (acute) exacerbation (3) Hypercapnic respiratory failure Status: Acute Qualifiers: Chronicity: acute on chronic Qualified Code(s): J96.22 - Acute and chronic respiratory failure with hypercapnia Category: Medical Code(s): J96.92 - Respiratory failure, unspecified with hypercapnia (4) COPD (chronic obstructive pulmonary disease) Status: Acute Category: Medical Code(s): J44.9 - Chronic obstructive pulmonary disease, unspecified (5) Elevated brain natriuretic peptide (BNP) level Status: Acute Category: Medical Code(s): R79.89 - Other specified abnormal findings of blood chemistry (6) Elevated troponin Status: Acute Category: Medical Code(s): R77.8 - Other specified abnormalities of plasma proteins (7) Renal insufficiency Status: Acute Category: Medical Code(s): N28.9 - Disorder of kidney and ureter, unspecified (8) Elevated liver enzymes Status: Acute Category: Medical Code(s): R74.8 - Abnormal levels of other serum enzymes (9) Hypotension Status: Acute Category: Medical Code(s): I95.9 - Hypotension, unspecified -
--- NOTE | 2020-04-24 08:51 | HMH.PULMPN ---
Internal Medicine - PN: Subj *Date: 04/24/20 *Time: 08:51 Interval history: Patient respiratory status significantly improved, weaned to nasal cannula 2 L tolerating well. Assessment and Plan (1) Pneumonia due to COVID-19 virus Status: Acute Category: Medical Code(s): U07.1 - COVID-19; J12.82 - Pneumonia due to coronavirus disease 2019 (2) Hypercapnic respiratory failure Status: Acute Qualifiers: Chronicity: acute on chronic Qualified Code(s): J96.22 - Acute and chronic respiratory failure with hypercapnia Category: Medical Code(s): J96.92 - Respiratory failure, unspecified with hypercapnia (3) Acute exacerbation of chronic obstructive airways disease Start date: 04/23/20 Start time: 10:00 Status: Acute Category: Medical Code(s): J44.1 - Chronic obstructive pulmonary disease with (acute) exacerbation (4) Anemia Status: Acute Qualifiers: Anemia type: unspecified type Qualified Code(s): D64.9 - Anemia, unspecified Category: Medical Code(s): D64.9 - Anemia, unspecified (5) HTN (hypertension) Status: Chronic Category: Medical Code(s): I10 - Essential (primary) hypertension (6) Chronic atrial fibrillation Status: Chronic Category: Medical Code(s): I48.2 - Chronic atrial fibrillation (7) Chronic pain syndrome Status: Chronic Category: Medical Code(s): G89.4 - Chronic pain syndrome (8) Tobacco use disorder Status: Chronic Category: Medical Code(s): F17.200 - Nicotine dependence, unspecified, uncomplicated (9) UTI (urinary tract infection) Status: Acute Qualifiers: Urinary tract infection type: site unspecified Hematuria presence: without hematuria Qualified Code(s): N39.0 - Urinary tract infection, site not specified Category: Medical Code(s): N39.0 - Urinary tract infection, site not specified (10) Renal insufficiency Status: Acute Category: Medical Code(s): N28.9 - Disorder of kidney and ureter, unspecified (11) Elevated troponin Status: Acute Category: Medical Code(s): R77.8 - Other specified abnormalities of plasma proteins (12) Elevated brain natriuretic peptide (BNP) level Status: Acute Category: Medical Code(s): R79.89 - Other specified abnormal findings of blood chemistry - Assessment and plan all Dx Assessment and Plan for all problems:: #Acute hypoxic respiratory failure: #COVID-19 pneumonia: 64 with a history of CHF, COPD presented to the hospital with worsening respiratory failure needing BiPAP supplementation to maintain oxygen saturations. Hemodynamically stable. Afebrile. WBC elevated to 15.9. Patient also have elevated creatinine 1.50. BNP elevated at 5050. Troponin trending up. Chest x-ray showed questionable lower lobe infiltrates. COVID-19 PCR positive. ABG on admission showed evidence of respiratory acidosis. Patient also found to have lower extremity cast. Etiologies patient's respiratory failure likely combination of COPD exacerbation, COVID-19 pneumonia and CHF exacerbation. Patient continued to receive ceftriaxone azithromycin for possible community-acquired pneumonia along with remdesivir and dexamethasone for COVID-19 pneumonia. D-dimer elevated 1.9 Afebrile in the last 24 hours. Blood cultures. Urine culture no growth 24 hours. Nasal MRSA culture positive. Sputum sample not collected. Cardiology is following for management of patient's atrial fibrillation and possible congestive heart failure exacerbation. Patient's respiratory status significantly improved since admission, initially needing BiPAP, eventually weaned to 2 L nasal cannula tolerating well. Plan: - Continue ceftriaxone azithromycin to complete a 5-day course - Continue remdesivir and dexamethasone - Continue DuoNebs every 6 hours and budesonide every 12 scheduled Thank you for involving pulmonary in this patient care. We will continue to follow.
--- NOTE | 2020-04-24 08:55 | PC.NURSE ---
notified Dr Greene face to face of positive MRSA swab
--- NOTE | 2020-04-24 09:58 | PC.NURSE ---
Tegan Burk and Adrianne Turner attempted to notify @ [phone]. No answer. Left call back number.
--- NOTE | 2020-04-24 10:07 | HMH.RR ---
Acute Rapid Response Note - Subjective Date Responded: 04/24/20 Time Responded: 09:25 Provider Note: While making rounds in the ICU, nurse notified me of change in status of patient. She had decreased responsiveness and HR had dropped from 100 to 60. Within a few seconds patient stopped breathing and did not have a pulse. Stacy Geovanni was called and ACLS protocol was initiated. Pt was bagged with 100% FiO2, she was intubated by ABDI Medina. Over the course of the code she was given multiple doses of Epi and Atropine and a dose of Glucagon. Patient remained in PEA and never had a pulse. Resuscitation efforts were stopped after about 25 minutes. - Objective Findings: Vital Signs - Last 4 Hours Temperature 99.0 F 04/24/20 01:00 Temperature Source Axillary 04/24/20 01:00 Pulse Rate 128 H 04/24/20 08:46 Respiratory Rate 24 04/24/20 08:46 Blood Pressure 113/70 04/24/20 08:46 Blood Pressure Mean 84 04/24/20 08:46 Blood Pressure Source Automatic Cuff 04/24/20 08:46 Blood Pressure Position Supine 04/24/20 08:46 02 Sat by Pulse Oximetry 94 L 04/24/20 08:46 Oxygen Delivery Method 04/24/20 07:00 Oxygen Flow Rate (LPM) 2 04/24/20 07:00 Rapid Response Exam - General General appearance: obtunded RR Procedures/Assess/Plan (1) Cardiopulmonary arrest Status: Acute - Assessment and plan all Dx Assessment and Plan for all problems:: Pt , OK to release body to home.
--- NOTE | 2020-04-24 10:11 | HMH.PNCARD ---
Subjective Date: 04/24/20 Time: 08:00 Principal diagnosis: Respiratory distress, Covid 19, Elevated troponins Interval history: 65-year-old female admitted to [facility] on 04/22/20 for respiratory distress and COVID-19 positive. Patient had been on BiPAP. Patient now is on 2 L of O2 by nasal cannula. Patient has history of COPD. Pulmonology is managing her COPD and COVID-19. COVID-19 protocol is being followed. Pulmonology was in to see patient this morning. Patient is tolerating the 2 L by nasal cannula. Patient is is alert and looking around the room. Patient noted as hypotensive this morning. Heart rate remains sinus tach with no ectopy in the 120s. Esmolol drip continues to infuse. Patient unable to answer simple questions. Would like to wean patient off the esmolol drip and try p.o. medications for better BP and heart rate control. We will continue monitor patient's heart rate and blood pressure. Discussed plan of care with Dr. Hadley. Will start bisoprolol 10 mg p.o. daily and diltiazem 30 mg p.o. every 6 hours for better heart rate control. After these 2 medications are given, can turn off the esmolol drip. Continue to monitor patient's heart rate and blood pressure. Please notify cardiology of any changes in patient's condition. Exam Vital signs and Labs for Last 24 Hours: Temp Pulse Resp BP Pulse Ox 99.0 F 128 H 24 113/70 94 L 04/24/20 01:00 04/24/20 08:46 04/24/20 08:46 04/24/20 08:46 04/24/20 08:46 Laboratory Results - last 24 hr 04/23/20 09:40: WBC 24.9 H* D, RBC 4.23, Hgb 12.8, Hct 42.4, MCV 100.3 H, MCH 30.2, MCHC 30.1 L, RDW 15.7, Plt Count 548 H, MPV 10.8 H, Neut % (Auto) 65.7, Lymph % (Auto) 31.9, [place] % (Auto) 1.6 L, Eos % (Auto) 0.0 L, Baso % (Auto) 0.8, Neut # (Auto) 16.4 H, Lymph # (Auto) 8.0 H, [place] # (Auto) 0.4, Eos # (Auto) 0.0, Baso # (Auto) 0.2, Total Counted 100, Neutrophils % (Manual) 86 H, Band Neutrophils % 3.0, Lymphocytes % (Manual) 6 L, Monocytes % (Manual) 4, Metamyelocytes % 1.0, Platelet Estimate Slight increase, Macrocytosis 1+ 04/23/20 11:30: Sodium 146 H, Potassium 4.1, Chloride 114 H, Carbon Dioxide 22, Anion Gap 14.1, BUN 35 H, Creatinine 0.70 D, Estimated Creat Clear 41, Estimated GFR 84, Est GFR ( Amer) 102 D, Glucose 91, Calcium 8.2 L D, Total Bilirubin 0.6, AST 456 H* D, ALT 135 H D, Alkaline Phosphatase 99, Total Protein 5.8 L D, Albumin 2.9 L D, Globulin 2.9, Albumin/Globulin Ratio 1.0 L I & O for Last 24 hours: Intake & Output 04/21/20 04/22/20 04/23/20 04/24/20 23:59 23:59 23:59 23:59 Intake Total 1811 / 1811 3793 / 3793 Output Total 725 / 725 200 / 200 Balance 1086 / 1086 3593 / 3593 Weight 160 lb 101 lb 6.602 oz 102 lb 4 oz 109 lb 4 oz Microbiology Reports for the Last 24 Hours: Microbiology 04/22/20 12:40 Nose - Nasal MRSA Culture - Final 04/22/20 01:31 Blood Blood Culture - Preliminary NO GROWTH AFTER 48 HOURS 04/22/20 01:31 Blood Blood Culture - Preliminary NO GROWTH AFTER 48 HOURS 04/22/20 00:00 Urine,Clean Catch Urine Culture - Preliminary - Constitutional mild distress, thin, chronically ill appearing - *Routine HEENT Exam Head: Present: normocephalic ENT: Present: mucous membranes dry - *Routine Neck Exam Present: supple, full ROM, normal carotid upstroke. Absent: JVD, carotid bruit, lymphadenopathy - Routine Chest/Breast/Axilla Exam Chest wall: Present: tenderness. Absent: mass, pacemaker - *Routine Respiratory Exam Present: accessory muscle use, diminished air movement. Absent: wheezes, crackles - *Routine Cardiovascular Exam Present: RRR, Normal S1, Normal S2, tachycardia. Absent: murmur, click, JVD - *Routine Abdominal Exam Present: soft, normoactive bowel sounds. Absent: distended, guarding - *Routine Extremities Exam Present: pulses intact, normal capillary refill. Absent: edema, full ROM Comments: right ankle noted
--- NOTE | 2020-04-24 10:29 | PC.NURSE ---
1030: [facility] CONTACTED. SPOKE WITH OPAL ROBERSON. CASE#[id number]. PATIENT RULED OUT FOR DONATION.
--- NOTE | 2020-04-24 10:42 | PC.NURSE ---
late entry: upon assessment this morning patient noted to have a lower bp with a systolic in the 70s. paused esmolol and contacted cardiology who stated to give 10mg bisoprolol and 30mg of cardizem but to leave the esmolol on and if patient heart rate in lower 100s then could dc the esmolol. dr quiñones was made aware of this as well and stated to give a 500ml bolus of ns during this time. patient bp noted to go back up and patient was responsive and answering questions. noted to at times stare off and eyes would roll in back of head but would respond to name. about 30 minutes later went into room patient heart rate 90-110. and esmolol shut off. patient would not respond to voice and only slightly responded to pain. alerted md air route traffic controller of change, patient pupils dilated. bipap replaced. also alerted cardiology they were needed upstairs per md air route traffic controller. dr davila happened to be rounding and came in to assess. noted that patient heart rate had dropped down to 60s 50s. attempting to fill for pulse revealed it to be absent and code was called.
[2020-04-24 10:59] LABS: Chloride 120 mmol/L (98-107); Potassium 5.1 mmoL/L (3.5-5.1); Sodium 148 mmol/L (136-145)
[2020-04-24 11:02] LABS: Alanine Aminotransferase 155 U/L (12-78); Albumin Level 2.5 g/dl (3.5-5.0); Albumin/Globulin Ratio 0.9 (1.1-1.8); Alkaline Phosphatase 97 U/L (38-126); Anion Gap 17.1 mEq/L (5-15); Aspartate Amino Transferase 337 U/L (14-36); Bilirubin,Total 0.6 mg/dl (0.2-1.3); Blood Urea Nitrogen 32 mg/dl (7-17); Carbon Dioxide 16 mmol/L (22.0-30.0); Creatinine Clearance Estimated 44 mL/min (50-200); Estimated Glomerular Filt Rate 84 ml/min (>60); GFR (African American) 102 ML/MIN (>60); Globulin 2.7 g/dL (1.3-3.2); Total Protein,Serum 5.2 g/dl (6.3-8.2)
[2020-04-24 11:03] LABS: Calcium 7.8 mg/dl (8.4-10.2); Glucose 113 mg/dl (74-100)
--- NOTE | 2020-04-24 11:08 | PC.NURSE ---
Meds charged out per Pharmacy. 0927: Epi 1mg x 1 0930: NS 1000ml fluids started 0937: Epi 1mg x 1 0939: Atropine x 1 0941: Epi 1mg x 1 0942: Glucagon x 1 amp 0943: Atropine x 1 0944: Epi 1mg x 1 0949: Epi 1mg x 1 Code terminated at 0954, pronounced by Dr. Aaron Fish
--- NOTE | 2020-04-24 19:11 | PC.NURSE ---
had attempted to notify family mutltiple times. arthur had no number for daughter, could not find any numbers on patient chart. palliative care nurse practitioner contacted and came up to hospital. found patient daughter and notified her. she wanted [facility] home
--- NOTE | 2020-04-25 12:17 | [facility].DCSUM ---
General - General Admission date:: 04/22/20 <Vargas Greene - 05/14/20 12:45> 04/22/20 <Yessenia Martin - 04/25/20 12:30> Discharge date: 04/24/20 <Yessenia Martin - 04/25/20 12:30> HPI HPI: Ms. Cardenas was a 65-year-old female resident of [facility] with an extensive medical history to include end-stage COPD, chronic respiratory failure under hospice care, GERD, anxiety, depression, atrial fibrillation, TIA, failure to thrive, fibromyalgia, migraine headaches, anemia, old right hip fracture in 2013 without surgical intervention, chronic pain syndrome, and polypharmacy who was sent to [facility] emergency room for evaluation of altered mental status and fever. Patient at this time is unable to give history of events. Information obtained from records. In the emergency room with evaluation patient was found to have a left lower lobe infiltrate on the chest x-ray. Laboratory data revealed white blood cell count of 15,900 and hemoglobin of 14.5 hematocrit of 41.7. Blood chemistries revealed sodium of 139 and potassium of 4.3. BUN was 30 and creatinine 1.5. Lactic acid was 4.9 troponin I's were elevated times three at 0.14, 0.34, and 0.33. Patient Covid PCR was detected. Urine showed positive nitrates, trace ketones and 2+ leuk esterase with too numerous to count WBCs. She was given fluid bolus in the emergency room along with acetaminophen, dexamethasone 10 mg IV, 40 of Lasix IV and morphine 2 mg IV. She was also started on Rocephin. She was then admitted to the Covid unit with routine Covid orders to include remdesivir. She was also started on Lovenox. ABGs on admission showed pH of 7.33 PCO2 of 45.6 PO2 of 42 and a bicarb of 23 after on BiPAP 70% pH was 7.31 PCO2 of 50.4 PO2 of 96 and bicarb of 24.7 which showed improvement on the BiPAP. Upon arrival to the floor in the Covid unit she was noted to be hypertensive and tachycardiac with a fever of 100.3. She was on BiPAP at this time. She was seen by cardiology who started on her on an esmolol drip in addition to her Cardizem drip. BNP was noted to be elevated at 5050. Pulmonology also saw her he felt her respiratory failure was likely a combination of COPD exacerbation along with COVID-19 pneumonia and CHF exacerbation. She was started on duo nebs every 4 hours along with budesonide every 12 hours scheduled. She was to remain on BiPAP at this point. At the time of this exam patient is wide-awake. She verbalized that she is having pain. To note patient was hospitalized - for an IMN of the right tibia. She initially had a walking boot on but due to ankle drifting she was placed in a short leg cast for better alignment. She was made nonweightbearing. Patient usually does not walk any way but has performed independent transfers in the past. <Ysesenia Martin - 04/25/20 12:30> Hospital Course Hospital Course: The patient was admitted and started on Covid protocol along with Rocephin and Zithromax. She was started on an esmolol as well as a Cardizem drip and low-dose morphine was ordered for her pain. She was also started on IV fluids. Cardiology and pulmonology were consulted. Cardiology ordered an echo and also started the patient on bisoprolol and Xarelto. The echo showed an EF of 45%. Pulmonology saw the patient and felt the patient's respiratory failure was a combination of COPD exacerbation along with Covid pneumonia and a CHF exacerbation. He recommended continuing current medications and initiating duo nebs. He wanted to keep the patient on BiPAP. Her blood pressure and heart rate were stable on IV diltiazem and esmolol initially and she became more alert and was able to answer questions appropriately. Her diet was advanced. She was followed by both pulmonology and cardiology. Pulmonology weaned her from BiPAP to 6 L of nasal cannula. By 04/24/2020, the patient was able to be weaned to 2 L on nasal cannula and her pu
== END 2020-04-24 09:54 | disposition expired | DRG 177 ==
LOC: ER 04-22 01:14 → ICU 04-22 05:23
PROVIDERS: Internal Medicine Pulmonary Disease; Admitting Provider Family Medicine; Emergency Provider Emergency Medicine; PCP Family Medicine; Visit Provider Family Medicine
DX: U07.1 COVID-19 (principal); J96.22 Acute and chronic respiratory failure with hypercapnia; J44.1 Chronic obstructive pulmonary disease with (acute) exacerbation; I48.20 Chronic atrial fibrillation, unspecified; N39.0 Urinary tract infection, site not specified; Z79.01 Long term (current) use of anticoagulants; Z79.51 Long term (current) use of inhaled steroids; Z79.891 Long term (current) use of opiate analgesic; Z79.899 Other long term (current) drug therapy; I50.9 Heart failure, unspecified; I11.0 Hypertensive heart disease with heart failure; I25.10 Atherosclerotic heart disease of native coronary artery without angina pectoris; G89.4 Chronic pain syndrome; Z72.0 Tobacco use; Z79.52 Long term (current) use of systemic steroids; Z99.81 Dependence on supplemental oxygen
CPT/HCPCS: 36415; 71045; 80053; 81001; 82803; 82962; 83036; 83605; 83880; 84145; 84484; 85007; 85025; 85378; 85651; 86140; 87040; 87081; 87086; 87088; 87186; 87581; 87633; 87798; 93005; 93306; 93308; 94640; 94660; 94761; 96375; 99285; J0456; J1610; U0003